=== PATIENT | female | born 1985 | race African-American/Black ===

== ENCOUNTER 2024-05-17 14:50 | Emergency (ER) | payer SELFPAY ==
[2024-05-17] VITALS (13 sets, daily range): BP systolic 144–154; BP diastolic 97–104; PULSE 76–96; RESP 16–34; TEMP 36.3–36.8; O2SAT 64–94; BMI 52.0
--- NOTE | 2024-05-17 15:04 | ED.VIS.DYS ---
HPI History of Present Illness Chief Complaint: Shortness of Breath Informant: patient Onset/Context/Timing Onset: Days Context: gradual Timing: Continuous Quality: Positive for Dyspnea on exertion Worsened by: Exertion Relieved by: Nothing Associated Symptoms cough and white sputum; Negative for rhinorrhea, post nasal drip, ear pain, fever, sore throat, chills, sweats, clear sputum, yellow sputum or green sputum Chest Pain: Positive for None Narrative Narrative: Patient presents with shortness of breath that became worse today. Patient has a history of asthma and is chronically on 4 L nasal cannula. Patient states her breathing is worse with any exertion. Patient states nothing makes it better. Patient states she has a cough with occasional white sputum. Patient denies any fevers or chills. Patient denies any chest pain. Patient denies any sore throat or rhinorrhea. Patient states she has occasional back pain. Patient denies any recent travel or recent surgery. [facility] Medical History Asthma Home Medications ?Medication ?Instructions ?Recorded ?Last Taken ?Type hydrochlorothiazide 25 mg tablet 25 mg PO DAILY #30 tabs 05/17/24 Unknown Rx Allergy/AdvReac Type Severity Reaction Status Date / Time No Known Allergies Allergy Verified 05/17/24 14:52 Social History Smoking Status: Current every day smoker tobacco type: cigarettes ROS ROS ED Constitutional Constitutional ED: Denies chills or fever(s) Eyes Eyes: Denies blurry vision or change in vision ENT ENT ED: Denies rhinorrhea or sore throat Cardiovascular Cardiovascular: Denies chest pain or palpitations Respiratory/Chest Respiratory/Chest: Reports cough and dyspnea Gastrointestinal Gastrointestinal: Denies nausea or vomiting Genitourinary Genitourinary ED: Denies dysuria or hematuria Musculoskeletal Musculoskeletal: Reports back pain; Denies neck pain Integumentary Denies abscess or rash Neurologic Neurologic: Denies headache(s) or weakness Allergic/Immunologic Allergic/Immunologic ED: Denies mouth swelling or urticaria EXAM Physical Exam Const Vital Signs: 05/17/24 14:52 05/17/24 14:54 05/17/24 14:57 Temperature 98.2 F Temperature Source Oral Pulse Rate 94 Respiratory Rate 16 Respiratory Effort Normal Non-Labored Respiratory Depth Normal Respiratory Pattern Normal Blood Pressure 152/104 H Blood Pressure Mean 120 Pulse Ox 64 93 Oxygen Delivery Method Room Air Nasal Cannula Oxygen Flow Rate (L/min) 4 05/17/24 15:20 05/17/24 15:30 05/17/24 15:45 Temperature Temperature Source Pulse Rate 95 96 92 Respiratory Rate 34 H 28 H 23 H Respiratory Effort Respiratory Depth Respiratory Pattern Blood Pressure Blood Pressure Mean Pulse Ox 94 94 92 Oxygen Delivery Method Oxygen Flow Rate (L/min) 05/17/24 15:48 05/17/24 16:00 05/17/24 16:15 Temperature Temperature Source Pulse Rate 83 83 76 Respiratory Rate 16 24 H 18 Respiratory Effort Respiratory Depth Respiratory Pattern Blood Pressure Blood Pressure Mean Pulse Ox 94 94 Oxygen Delivery Method Oxygen Flow Rate (L/min) 05/17/24 16:30 05/17/24 16:33 05/17/24 16:45 Temperature 98.3 F Temperature Source Oral Pulse Rate 80 85 Respiratory Rate 24 H 16 25 H Respiratory Effort Respiratory Depth Respiratory Pattern Blood Pressure 144/99 H 144/99 H Blood Pressure Mean 113 114 Pulse Ox 92 90 92 Oxygen Delivery Method Nasal Cannula Oxygen Flow Rate (L/min) 3 05/17/24 16:45 05/17/24 17:00 Temperature Temperature Source Pulse Rate 77 Respiratory Rate 18 Respiratory Effort Respiratory Depth Respiratory Pattern Blood Pressure 154/97 H 149/99 H Blood Pressure Mean 113 113 Pulse Ox 94 Oxygen Delivery Method Oxygen Flow Rate (L/min) Positive well nourished and well developed Constitutional Narrative: BMI is 52.0 General Appearance ED: well developed and NAD HEENT Reports moist mucous membranes atraumatic Neck supple, no meningeal signs and no JVD Resp normal respiratory effort Auscultation: wheezes expiratory wheezes and throughout Cardio regular rate and regular rhythm GI non-tender and non-distended Palpation: soft Neuro oriented x3, CN's II-XII intact bilaterally and no sensory deficits noted Kaitlyn Coma Scale: document GCS findings Spontaneous Obeys Commands Oriented 15 Sensorium / Orientation: alert Speech: speech normal Motor Exam: strength 5/5 throughout Psych mental status grossly normal MDM MDM MDM Narrative Medical decision making narrative: Differential diagnosis includes asthma exacerbation, pneumonia, viral illness, congestive heart failure, cardiac dysrhythmia, cardiac ischemia, electrolyte abnormality, and anxiety. Chest x-ray will be obtained to assess for pneumonia and bronchitis. COVID-19, influenza, and RSV PCR will be obtained to assess for viral illness. EKG will be obtained to assess for cardiac dysrhythmia and cardiac ischemia. CBC will be obtained to assess for leukocytosis and anemia. Basic metabolic profile will be obtained to assess for electrolyte abnormality and renal function. BNP will be obtained to assess for congestive heart failure. Lab Data Attestation: I reviewed the patient's lab results. Lab results narrative: CBC was reviewed. Hemoglobin slightly elevated at 15.2 and hematocrit was 48.9. The remainder is within normal limits. Basic metabolic profile was reviewed and was essentially within normal limits. BNP was reviewed and was slightly elevated at 707. Labs: Laboratory Results - last 24 hr 05/17/24 14:55 WBC 6.4 RBC 5.53 H Hgb 15.2 H Hct 48.9 H MCV 88.4 MCH 27.5 MCHC 31.1 L RDW Std Deviation 49.9 H RDW Coeff of Dieudonne 15.2 H Plt Count 215 MPV 11.0 Immature Gran % (Auto) 0.300 Neut % (Auto) 62.2 Lymph % (Auto) 23.4 [place] % (Auto) 9.9 Eos % (Auto) 3.1 Baso % (Auto) 1.1 H Absolute Neuts (auto) 4.0 Absolute Lymphs (auto) 1.49 Nucleated RBC % 0 Sodium 141 Potassium 4.2 Chloride Direct 100 Carbon Dioxide 30.5 H Anion Gap 10 BUN 7 Creatinine 0.61 L Estim Creat Clear Calc 162.70 Est GFR (MDRD) Non-Af 118 BUN/Creatinine Ratio 12.1 Glucose 108 H Calcium 9.5 NT pro BNP II 707 H Radiography Chest X-Ray - ED: 2 View, Read by ED Physician, Read by Radiologist, Cardiomegaly and CHF (Pulmonary vascular congestion) Diagnostic Testing: Clinical Impression(s) from Imaging Studies Chest X-Ray 05/17/24 15:35 IMPRESSION: Moderate cardiomegaly with pulmonary vascular congestion. Reading Location: [facility] and lateral chest x-ray was obtained. There are 2 views. On my independent interpretation, lung lamb show pulmonary vascular congestion. There is moderate cardiomegaly. Bony thorax is normal. There is no acute process noted. Radiologist also interpreted the x-ray and agrees. EKG Initial EKG: Attestation: I personally reviewed and interpreted this EKG as follows: Interpretation: Sinus Rhythm (79 with occasional PVC) Comments: EKG was obtained. On my independent interpretation, it showed a normal sinus rhythm with occasional PVC with a rate of 79. FL interval, QRS interval, and QTc intervals were all normal. There is borderline right axis deviation at 122. There are no acute ST or T wave changes. There is right ventricular hypertrophy and right atrial enlargement. Prior EKG tracings: not available for review Prior: No Prior Treatment and Re-Evaluation :: Patient was given a DuoNeb aerosol here. Patient was feeling better on reevaluation. Patient was given a dose of Lasix here. Patient was advised of her findings. Since the patient is on home oxygen and is not requiring any increase in her oxygen demand, I feel the patient can be discharged home safely. Patient was given a prescription for hydrochlorothiazide. Patient was given a referral for primary care physician for follow-up care in 3 to 5 days. Patient instructed to return if worse in any way. Patient understood and was agreeable with the plan. All questions were answered. Discharge Plan Triage Chief Complaint: Shortness of Breath ED Provider: Pavel Lantigua Dx/Rx/DC Orders Clinical Impression: Dyspnea, Pulmonary vascular congestion Instructions: ED CHF Left Side Prescriptions: New hydrochlorothiazide 25 mg tablet 25 mg PO DAILY Qty: 30 0RF Primary Care Provider: Care Physician,No Primary Referrals: Munir Mondragon MD [Med Staff - [employer]] - 3-5 Days NOT,DEFINED [Non-Staff] - Print Language: Kazakh Disposition Disposition: Home, Self Care
--- NOTE | 2024-05-17 15:35 | RAD_ITS ---
PROCEDURE: CHEST PA AND LATERAL REASON FOR EXAM: Dyspnea TECHNIQUE: Frontal and lateral views of the chest. COMPARISON: None. FINDINGS: Heart size is moderately enlarged. The mediastinal contour is unremarkable. Pulmonary vasculature is congested. The bones are unremarkable. RAD/Chest PA and Lateral IMPRESSION: Moderate cardiomegaly with pulmonary vascular congestion. Reading Location: [facility]
[2024-05-17] MEDS: Ipratropium/Albuterol Sulfate 3 ML AMPUL.NEB INHALATION (15:48)
--- NOTE | 2024-05-17 16:08 | EKG12_ITS ---
Test Reason : sob Blood Pressure : */* mmHG Vent. Rate : 79 BPM Atrial Rate : 79 BPM P-R Int : 182 ms QRS Dur : 104 ms QT Int : 400 ms P-R-T Axes : 59 122 28 degrees QTcB Int : 458 ms Sinus rhythm with occasional Premature ventricular complexes Right atrial enlargement Right axis deviation Right ventricular hypertrophy Abnormal ECG Confirmed by Zach Rivera ([id number]), graphic editor HAYDEE FARIA ([id number]) on 05/19/2024 7:04:35 AM Referred By: Confirmed By: Zach Rivera
[2024-05-17 16:31] LABS: Absolute Lymphocyte Count 1.49 X10^3/uL (0.83-4.51); Basophil# 0.07 X10^3/uL; Basophil% 1.1 % (0-1); Eosinophils% 3.1 % (0-5); Hematocrit 48.9 % (37-47); Hemoglobin 15.2 g/dL (12.0-15.0); Lymphocyte # 1.49 X10^3/ul (0.83-4.51); Lymphocyte % 23.4 % (19-41); Mean Corp Hgb Conc 31.1 g/dL (32-36); Mean Corpuscular Hgb 27.5 pg (27.0-32.0); Mean Corpuscular Volume 88.4 fL (81-99); Monocyte# 0.63 X10^3/uL; Monocyte% 9.9 % (0-10); NRBC Flagged by Analyzer 0 % (0-5); Neutrophil # 3.95 X10^3/uL (2.7-7.7); Neutrophil % 62.2 % (47-70); Platelet Count 215 K/mm3 (150-450); RBC Distribution Width CV 15.2 % (11.6-14.6); RBC Distribution Width SD 49.9 fl (35.1-43.9); Red Blood Count 5.53 M/mm3 (4.2-5.4); White Blood Count 6.4 K/mm3 (4.4-11.0)
[2024-05-17 17:01] LABS: Anion Gap 10 (5-15); BUN 7 mg/dL (4-19); BUN/Creat Ratio 12.1 RATIO (10-20); Calcium 9.5 mg/dL (7.6-11.0); Carbon Dioxide 30.5 mmol/L (22.0-29.0); Chloride 100 mmol/L (96-108); Creatinine, Serum 0.61 mg/dL (0.70-1.20); EST Glomerular Filtration Rate 118 (>60); Glucose 108 mg/dL (70-99); Potassium 4.2 mmol/L (3.3-5.1); Pro- Brain NATRIURETIC PEPTIDE 707 pg/mL (<=450); Sodium Level 141 mmol/L (133-145)
[2024-05-17] MEDS: Furosemide 40 MG/4 ML Vial IV (17:25)
--- NOTE | 2024-05-17 18:12 | ED.RN ---
Pt was d/c without oxygen, patient has oxygen at home and is refusing to go get it. Pt states It is a [address], I will be okay going from here to home without it. This RN educated the importance of keeping the oxygen on at all times.
== END 2024-05-17 18:13 | disposition home or self-care (01) ==
PROVIDERS: Emergency Provider Emergency Medicine; Visit Provider Emergency Medicine
DX: R06.00 Dyspnea, unspecified (principal); R09.89 Other specified symptoms and signs involving the circulatory and respiratory systems; J45.909 Unspecified asthma, uncomplicated; F17.210 Nicotine dependence, cigarettes, uncomplicated
CPT/HCPCS: 71046; 80048; 83880; 85025; 87631; 93005; 94640; 96374; 99285; A4216; J1940

== ENCOUNTER 2024-06-10 12:27 | Emergency (ER) | payer MEDICAID, SELFPAY ==
[2024-06-10 12:27] VITALS: BP 125/91; PULSE 101; RESP 16; TEMP 36.7; O2SAT 90; BMI 51.5
--- NOTE | 2024-06-10 12:59 | EX.ED.DYSGE1 ---
HPI <Dr. Christiano Berry DO - Last Filed: 06/10/24 15:35> History of Present Illness Chief Complaint: Abd Pain Informant: patient and family Narrative Narrative: 39-year-old female presenting to the emergency room with gallbladder pain and nausea. Patient states that she has a gallbladder problem and does not know what it is. She states that she moved from [place] in March because she has chronic lung and gallbladder issues and the doctors there were not telling her what was going on or trying to fix it. Since arriving in [place] she has not establish care with anybody because she is waiting on medical. By this she means she is waiting to get insurance through the state. She states her pain began around 8:00 this morning and is epigastric and right upper quadrant in nature. She states she has not had a bowel movement for 1 to 2 days. She last had anything to eat last evening. She states that she has home oxygen but she is not wearing that today. She is a smoker. She notes no prior abdominal surgeries. [facility] <Dr. Christiano Berry DO - Last Filed: 06/10/24 15:35> [facility] Medical History Asthma Home Medications ?Medication ?Instructions ?Recorded ?Last Taken ?Type hydrochlorothiazide 25 mg tablet 25 mg PO DAILY #30 tabs 05/17/24 Unknown Rx oxycodone-acetaminophen 5 mg-325 1 tab PO Q6H PRN PRN Pain 3 days 06/10/24 Unknown Rx mg tablet #12 TABLETS Allergy/AdvReac Type Severity Reaction Status Date / Time No Known Allergies Allergy Verified 05/17/24 14:52 Family History no significant family his Social History Smoking Status: Current every day smoker tobacco type: cigarettes ROS <Dr. Christiano Berry DO - Last Filed: 06/10/24 15:35> ROS ED Constitutional Constitutional ED: Denies chills, fever(s) or weight loss Eyes Eyes: Denies change in vision or diplopia ENT ENT ED: Denies ear pain, rhinorrhea or sore throat Cardiovascular Cardiovascular: Denies chest pain, orthopnea, palpitations or racing heartbeat Respiratory/Chest Respiratory/Chest: Denies cough, dyspnea or orthopnea Gastrointestinal Gastrointestinal: Reports abdominal pain and nausea; Denies diarrhea or vomiting Genitourinary Genitourinary ED: Denies dysuria, hematuria or urinary frequency Musculoskeletal Musculoskeletal: Denies arthralgias or myalgias Integumentary Denies abscess or rash Neurologic Neurologic: Denies headache(s) or weakness Psychiatric Psychiatric: Denies anxiety, depression, suicidal ideation or suicidal thoughts Endocrine Endocrinology: Denies polydipsia, polyphagia or polyuria Allergic/Immunologic Allergic/Immunologic ED: Denies mouth swelling, tongue swelling or urticaria EXAM <Dr. Christiano Berry, DO - Last Filed: 06/10/24 15:35> Physical Exam Const Vital Signs: 06/10/24 12:27 06/10/24 14:27 06/10/24 15:26 Temperature 98.1 F Temperature Source Temporal Pulse Rate 101 H Respiratory Rate 16 Blood Pressure 125/91 H 114/64 Blood Pressure Mean 102 80 Pulse Ox 90 60 Oxygen Delivery Method Room Air Room Air Oxygen Flow Rate (L/min) 06/10/24 15:26 06/10/24 15:38 06/10/24 16:54 Temperature Temperature Source Pulse Rate Respiratory Rate Blood Pressure 112/76 Blood Pressure Mean 88 Pulse Ox 94 95 Oxygen Delivery Method Nasal Cannula Nasal Cannula Oxygen Flow Rate (L/min) 6 5 Positive well nourished and well developed General Appearance ED: well developed HEENT Reports normocephalic, head/scalp atraumatic and moist mucous membranes Eyes PERRL and EOMs intact bilaterally Neck no lymphadenopathy, supple and no JVD Resp normal respiratory effort and clear to auscultation bilaterally Cardio regular rate, regular rhythm and no murmurs GI GI Narrative: Body habitus precludes full deep palpation of abdomen Inspection: Negative for abdominal distention Auscultation: normoactive bowel sounds Palpation: soft and tender epigastric; Negative for guarding or rebound tenderness present Back/Spine no CVA tenderness and normal ROM Extremity normal to inspection General Extremety ED: Negative for edema General Extremity: Negative for edema Neuro oriented x3 and CN's II-XII intact bilaterally Sensorium / Orientation: alert Motor Exam: strength 5/5 throughout Psych mental status grossly normal Mood & Affect: Negative for depressed or tearful Skin no rashes or lesions noted and no wounds <Dr. Waylon Wyatt, DO - Last Filed: 06/10/24 17:37> Physical Exam Const Vital Signs: 06/10/24 12:27 06/10/24 14:27 06/10/24 15:26 Temperature 98.1 F Temperature Source Temporal Pulse Rate 101 H Respiratory Rate 16 Blood Pressure 125/91 H 114/64 Blood Pressure Mean 102 80 Pulse Ox 90 60 Oxygen Delivery Method Room Air Room Air Oxygen Flow Rate (L/min) 06/10/24 15:26 06/10/24 15:38 06/10/24 16:54 Temperature Temperature Source Pulse Rate Respiratory Rate Blood Pressure 112/76 Blood Pressure Mean 88 Pulse Ox 94 95 Oxygen Delivery Method Nasal Cannula Nasal Cannula Oxygen Flow Rate (L/min) 6 5 MDM <Dr. Christiano Berry, DO - Last Filed: 06/10/24 15:35> MDM MDM Narrative Medical decision making narrative: Differential diagnosis includes but not limited to pancreatitis biliary colic choledocholithiasis colitis Patient's white count is 7.3 platelet count of 280 hemoglobin 14.9. LFTs are within normal limits glucose noted to be 120. Albumin is low at 1.9 lipase 41. Urinalysis with no overt infection does show contamination. test is negative. CT of the abdomen pelvis was obtained. Please see radiologist read for full details. There is evidence of cholelithiasis. There is noted to be fatty liver. Patient received pain and nausea medication. While sleeping the patient did desaturate and was placed on her home oxygen. Given body habitus and her need for home oxygen I do suspect a degree of sleep apnea and possibly pickwickian syndrome. History & Record Review Discussion w/independent historian: Patient and Family Lab Data Attestation: I reviewed the patient's lab results. Labs: Laboratory Results - last 24 hr 06/10/24 06/10/24 06/10/24 12:45 13:35 14:00 WBC 7.3 RBC 5.41 H Hgb 14.9 Hct 47.9 H MCV 88.5 MCH 27.5 MCHC 31.1 L RDW Std Deviation 48.4 H RDW Coeff of Dieudonne 15.1 H Plt Count 280 MPV 10.3 Immature Gran % (Auto) 0.300 Neut % (Auto) 70.6 H Lymph % (Auto) 20.2 [place] % (Auto) 6.5 Eos % (Auto) 1.6 Baso % (Auto) 0.8 Absolute Neuts (auto) 5.1 Absolute Lymphs (auto) 1.47 Nucleated RBC % 0 Sodium 138 Potassium 4.5 Chloride 98 Carbon Dioxide 30.3 Anion Gap 10 BUN 12 Creatinine 0.68 L Estim Creat Clear Calc 143.73 Est GFR (MDRD) Non-Af 114 BUN/Creatinine Ratio 18.1 Glucose 120 H Calcium 6.7 L Ionized Calcium Total Bilirubin 0.38 Direct Bilirubin 0.13 AST 19 ALT 13 Alkaline Phosphatase 92 Total Protein 8.4 Albumin 1.9 L Globulin 6.4 H Lipase 41 Serum , Qual NEGATIVE Urine Color Yellow Urine Clarity Cloudy Urine pH 6.0 Ur Specific [place] 1.015 Urine Protein 100 H Urine Glucose (UA) Normal Urine Ketones Negative Urine Occult Blood Negative Urine Nitrite Negative Urine Bilirubin 1 H Urine Urobilinogen 1 H Ur Leukocyte Esterase 25 H Urine RBC 0 SEEN Urine WBC 0-5 SEEN Ur Squamous Epith Cells 10-25 SEEN Urine Bacteria 0 SEEN Urine Mucus 1+ 06/10/24 14:50 WBC RBC Hgb Hct MCV MCH MCHC RDW Std Deviation RDW Coeff of Dieudonne Plt Count MPV Immature Gran % (Auto) Neut % (Auto) Lymph % (Auto) [place] % (Auto) Eos % (Auto) Baso % (Auto) Absolute Neuts (auto) Absolute Lymphs (auto) Nucleated RBC % Sodium Potassium Chloride Carbon Dioxide Anion Gap BUN Creatinine Estim Creat Clear Calc Est GFR (MDRD) Non-Af BUN/Creatinine Ratio Glucose Calcium Ionized Calcium 1.16 Total Bilirubin Direct Bilirubin AST ALT Alkaline Phosphatase Total Protein Albumin Globulin Lipase Serum , Qual Urine Color Urine Clarity Urine pH Ur Specific [place] Urine Protein Urine Glucose (UA) Urine Ketones Urine Occult Blood Urine Nitrite Urine Bilirubin Urine Urobilinogen Ur Leukocyte Esterase Urine RBC Urine WBC Ur Squamous Epith Cells Urine Bacteria Urine Mucus Radiography Diagnostic Testing: Clinical Impression(s) from Imaging Studies Abdomen/Pelvis CT 06/10/24 14:35 IMPRESSION: 1. Normal appendix. 2. Anterior ventral hernia of the lower mid abdomen. No bowel obstruction. 3. Hepatomegaly with fatty infiltration. 4. Cholelithiasis. 5. No obstructive uropathy. Reading Location: [facility] Gallbladder Ultrasound 06/10/24 15:42 IMPRESSION: 1. Cholelithiasis without evidence of acute cholecystitis. 2. Hepatic steatosis. Reading Location: [id number] <Dr. Waylon Wyatt, DO - Last Filed: 06/10/24 17:37> [facility] Narrative Medical decision making narrative: Differential diagnosis includes but not limited to pancreatitis biliary colic choledocholithiasis colitis Patient's white count is 7.3 platelet count of 280 hemoglobin 14.9. LFTs are within normal limits glucose noted to be 120. Albumin is low at 1.9 lipase 41. Urinalysis with no overt infection does show contamination. test is negative. CT of the abdomen pelvis was obtained. Please see radiologist read for full details. There is evidence of cholelithiasis. There is noted to be fatty liver. Patient received pain and nausea medication. While sleeping the patient did desaturate and was placed on her home oxygen. Given body habitus and her need for home oxygen I do suspect a degree of sleep apnea and possibly pickwickian syndrome. Dr. Wyatt: Patient was signed out to me by day physician. At the time of sign out, labs had all resulted. We are awaiting gallbladder ultrasound. I did personally look over the labs as well as CT abdomen pelvis. Ultrasound of the gallbladder shows cholelithiasis without evidence of acute cholecystitis. Hepatic steatosis. I suspect that patient's episodic abdominal pain is secondary to biliary colic. She has no signs of acute cholecystitis. On reevaluation, patient states her pain is controlled. Patient is stable to discharge home. She is educated to follow-up with general surgery for her cholelithiasis as well as for hepatic steatosis. She confirmed understand the plan. Return precautions explained. Patient discharged home. Impression: 1. Cholelithiasis 2. Hepatic steatosis Lab Data Labs: Laboratory Results - last 24 hr 06/10/24 06/10/24 06/10/24 12:45 13:35 14:00 WBC 7.3 RBC 5.41 H Hgb 14.9 Hct 47.9 H MCV 88.5 MCH 27.5 MCHC 31.1 L RDW Std Deviation 48.4 H RDW Coeff of Dieudonne 15.1 H Plt Count 280 MPV 10.3 Immature Gran % (Auto) 0.300 Neut % (Auto) 70.6 H Lymph % (Auto) 20.2 [place] % (Auto) 6.5 Eos % (Auto) 1.6 Baso % (Auto) 0.8 Absolute Neuts (auto) 5.1 Absolute Lymphs (auto) 1.47 Nucleated RBC % 0 Sodium 138 Potassium 4.5 Chloride 98 Carbon Dioxide 30.3 Anion Gap 10 BUN 12 Creatinine 0.68 L Estim Creat Clear Calc 143.73 Est GFR (MDRD) Non-Af 114 BUN/Creatinine Ratio 18.1 Glucose 120 H Calcium 6.7 L Ionized Calcium Total Bilirubin 0.38 Direct Bilirubin 0.13 AST 19 ALT 13 Alkaline Phosphatase 92 Total Protein 8.4 Albumin 1.9 L Globulin 6.4 H Lipase 41 Serum , Qual NEGATIVE Urine Color Yellow Urine Clarity Cloudy Urine pH 6.0 Ur Specific [place] 1.015 Urine Protein 100 H Urine Glucose (UA) Normal Urine Ketones Negative Urine Occult Blood Negative Urine Nitrite Negative Urine Bilirubin 1 H Urine Urobilinogen 1 H Ur Leukocyte Esterase 25 H Urine RBC 0 SEEN Urine WBC 0-5 SEEN Ur Squamous Epith Cells 10-25 SEEN Urine Bacteria 0 SEEN Urine Mucus 1+ 06/10/24 14:50 WBC RBC Hgb Hct MCV MCH MCHC RDW Std Deviation RDW Coeff of Dieudonne Plt Count MPV Immature Gran % (Auto) Neut % (Auto) Lymph % (Auto) [place] % (Auto) Eos % (Auto) Baso % (Auto) Absolute Neuts (auto) Absolute Lymphs (auto) Nucleated RBC % Sodium Potassium Chloride Carbon Dioxide Anion Gap BUN Creatinine Estim Creat Clear Calc Est GFR (MDRD) Non-Af BUN/Creatinine Ratio Glucose Calcium Ionized Calcium 1.16 Total Bilirubin Direct Bilirubin AST ALT Alkaline Phosphatase Total Protein Albumin Globulin Lipase Serum , Qual Urine Color Urine Clarity Urine pH Ur Specific [place] Urine Protein Urine Glucose (UA) Urine Ketones Urine Occult Blood Urine Nitrite Urine Bilirubin Urine Urobilinogen Ur Leukocyte Esterase Urine RBC Urine WBC Ur Squamous Epith Cells Urine Bacteria Urine Mucus Radiography Diagnostic Testing: Clinical Impression(s) from Imaging Studies Abdomen/Pelvis CT 06/10/24 14:35 IMPRESSION: 1. Normal appendix. 2. Anterior ventral hernia of the lower mid abdomen. No bowel obstruction. 3. Hepatomegaly with fatty infiltration. 4. Cholelithiasis. 5. No obstructive uropathy. Reading Location: [facility] Gallbladder Ultrasound 06/10/24 15:42 IMPRESSION: 1. Cholelithiasis without evidence of acute cholecystitis. 2. Hepatic steatosis. Reading Location: [facility] Discharge Plan Triage Chief Complaint: Abd Pain ED Provider: Christiano Berry Dx/Rx/DC Orders Clinical Impression: Abdominal pain, acute, Cholelithiasis Instructions: Gallstones Dc Prescriptions: New oxycodone-acetaminophen 5-325 mg tablet 1 tab PO Q6H PRN PRN (Reason: Pain) 3 Days Qty: 12 0RF No Action hydrochlorothiazide 25 mg tablet 25 mg PO DAILY Qty: 30 0RF Primary Care Provider: Care Physician,No Primary Referrals: Julien Adams MD [Med Staff - Active Staff] - (for surgery evaluation of gallbladder) Care Physician,No Primary [Primary Care Provider] - Print Language: Swedish
[2024-06-10] MEDS: Morphine 4 MG/ML Syringe IV (13:07)
[2024-06-10] MEDS: Ondansetron 4 MG/2 ML Vial IV (13:07)
[2024-06-10 13:09] LABS: Absolute Lymphocyte Count 1.47 X10^3/uL (0.83-4.51); Absolute Neutrophil Count 5.1 X10^3/uL (2.0-7.7); Basophil# 0.06 X10^3/uL; Basophil% 0.8 % (0-1); Eosinophil# 0.12 X10^3/uL; Eosinophils% 1.6 % (0-5); Hematocrit 47.9 % (37-47); Hemoglobin 14.9 g/dL (12.0-15.0); Lymphocyte # 1.47 X10^3/ul (0.83-4.51); Lymphocyte % 20.2 % (19-41); Mean Corp Hgb Conc 31.1 g/dL (32-36); Mean Corpuscular Hgb 27.5 pg (27.0-32.0); Mean Corpuscular Volume 88.5 fL (81-99); Mean Platelet Vol. 10.3 fl (6.2-12.0); Monocyte# 0.47 X10^3/uL; Monocyte% 6.5 % (0-10); NRBC Flagged by Analyzer 0 % (0-5); Neutrophil # 5.14 X10^3/uL (2.7-7.7); Neutrophil % 70.6 % (47-70); Platelet Count 280 K/mm3 (150-450); RBC Distribution Width CV 15.1 % (11.6-14.6); RBC Distribution Width SD 48.4 fl (35.1-43.9); Red Blood Count 5.41 M/mm3 (4.2-5.4); White Blood Count 7.3 K/mm3 (4.4-11.0)
[2024-06-10 13:50] LABS: Internal QC Validated? YES +Cl - CLEAR BKGD; Pregnancy, Serum, hCG Quali. NEGATIVE Negative
[2024-06-10 14:09] LABS: Bacteria 0 SEEN /hpf (None Seen)
[2024-06-10 14:15] LABS: Color, Urine Yellow (Yellow); Glucose, Dipstick Normal (Normal); Ketone-Dipstick Negative (Negative); Leukocyte Esterase-Dipstick 25 /ul (Negative); Nitrite-Dipstick Negative (Negative); Occult Blood-Urine Negative /ul (Negative); Protein-Dipstick 100 mg/dl (Negative); Specific Gravity, Urine 1.015 (1.002-1.030); Urine Clarity Cloudy (Clear); Urine Urobilinogen 1 mg/dl (Normal)
[2024-06-10 14:25] LABS: Urine Bilirubin Dipstick 1 mg/dL (Negative)
[2024-06-10 14:27] VITALS: BP 114/64
[2024-06-10 14:28] LABS: Red Blood Cells-Urine 0 SEEN /hpf (0-5); Squamous Epithelial Cells - UA 10-25 SEEN /hpf (5-10); White Blood Cells 0-5 SEEN /hpf (0-5)
[2024-06-10 14:29] LABS: Mucous, Urine 1+ /hpf (<or=2+)
--- NOTE | 2024-06-10 14:35 | CT_ITS ---
EXAM: CT Abdomen, Pelvis and Lumbar Spine With Intravenous Contrast CLINICAL INDICATION: ABDOMINAL PAIN TECHNIQUE: Axial computed tomography images of the abdomen, pelvis and lumbar spine with intravenous contrast. This CT exam was performed using one or more of the following dose reduction techniques: automated exposure control, adjustment of the mA and/or kV according to patient size, and/or use of iterative reconstruction technique. COMPARISON: No relevant prior studies available. FINDINGS: LUNG BASES: Unremarkable. No mass. No consolidation. ABDOMEN: LIVER: Hepatomegaly with fatty infiltration. GALLBLADDER AND BILE DUCTS: Cholelithiasis. No ductal dilation. PANCREAS: Unremarkable. No mass. No ductal dilation. SPLEEN: Unremarkable. No splenomegaly. ADRENALS: Unremarkable. No mass. KIDNEYS AND URETERS: Unremarkable. No stones within either kidney. No hydronephrosis. STOMACH AND BOWEL: Anterior ventral hernia of the lower mid abdomen. No bowel obstruction. No mucosal thickening. PELVIS: APPENDIX: Normal appendix. BLADDER: Unremarkable. No mass. REPRODUCTIVE: Unremarkable as visualized. LUMBAR SPINE: VERTEBRAE: Unremarkable. No acute fracture. DISCS/SPINAL CANAL/NEURAL FORAMINA: No acute findings. No significant spinal canal stenosis. ABDOMEN and PELVIS: INTRAPERITONEAL SPACE: Unremarkable. No free air. No significant fluid collection. BONES/JOINTS: No acute fracture. No dislocation. SOFT TISSUES: See above. VASCULATURE: Unremarkable. No abdominal aortic aneurysm. LYMPH NODES: Unremarkable. No enlarged lymph nodes. CT/Abdomen/Pelvis W IV Cont ONLY IMPRESSION: 1. Normal appendix. 2. Anterior ventral hernia of the lower mid abdomen. No bowel obstruction. 3. Hepatomegaly with fatty infiltration. 4. Cholelithiasis. 5. No obstructive uropathy. Reading Location: [facility]
[2024-06-10 14:39] LABS: AST(SGOT) 19 U/L (<=31); Alanine Aminotransfer ALT/SGPT 13 U/L (<=34); Albumin, Serum 1.9 g/dL (3.5-5.0); Alkaline Phosphatase 92 U/L (35-104); Anion Gap 10 (5-15); BUN 12 mg/dL (4-19); BUN/Creat Ratio 18.1 RATIO (10-20); Bilirubin, Direct 0.13 mg/dL (0.00-0.30); Calcium,Total 6.7 mg/dL (7.6-11.0); Carbon Dioxide 30.3 mmol/L (21.0-32.0); Chloride 98 mmol/L (98-108); Creatinine, Serum 0.68 mg/dL (0.70-1.20); EST Glomerular Filtration Rate 114 (>60); Estimated Creatinine Clearance 143.73 ml/min (50-250); Globulin 6.4 g/dL (2.2-4.2); Glucose 120 mg/dL (70-99); Lipase 41 U/L (13-75); Potassium 4.5 mmol/L (3.3-5.1); Protein, Total 8.4 g/dL (5.9-8.4); Sodium Level 138 mmol/L (133-145); Total Bilirubin 0.38 mg/dL (0.00-1.30)
[2024-06-10 15:26] VITALS: O2SAT 60; O2SAT 94
[2024-06-10 15:38] VITALS: O2SAT 95
--- NOTE | 2024-06-10 15:42 | US_ITS ---
PROCEDURE: GALLBLADDER 06/10/2024 REASON FOR EXAM: 39-year-old female, PAIN AND CHOLELITHIASIS COMPARISON: Same day CT abdomen pelvis. FINDINGS: Liver: Diffusely echogenic suggesting fatty infiltration. Normal in size measuring 17.4 cm. The bile ducts are within normal limits. The main portal vein is patent with normal direction of flow. Gallbladder: Multiple echogenic gallstones are identified. The gallbladder measures 7.8 cm in length, and the wall measures 5 mm in thickness. No pericholecystic fluid. Negative Fonseca sign reported by the computer technologist. Common bile duct: Normal measuring 5 mm. Pancreas: Visualized portions are unremarkable. The tail is obscured by bowel gas. Other: Visualized portions of the right kidney are unremarkable. No right upper quadrant ascites. US/Gallbladder IMPRESSION: 1. Cholelithiasis without evidence of acute cholecystitis. 2. Hepatic steatosis. Reading Location: [id number]
[2024-06-10 15:48] LABS: Ionized Calcium 1.16 mmol/L (1.09-1.30)
[2024-06-10 15:49] LABS: Ionized Calcium Order TUBE ORDER
[2024-06-10 16:54] VITALS: BP 112/76
[2024-06-10 17:36] VITALS: BP 98/63; PULSE 78; RESP 16; TEMP 36.7; O2SAT 94
== END 2024-06-10 17:42 | disposition home or self-care (01) ==
PROVIDERS: Emergency Provider Emergency Medicine; Visit Provider Emergency Medicine
DX: R10.9 Unspecified abdominal pain (principal); K80.20 Calculus of gallbladder without cholecystitis without obstruction; F17.210 Nicotine dependence, cigarettes, uncomplicated; K76.0 Fatty (change of) liver, not elsewhere classified; J45.909 Unspecified asthma, uncomplicated
CPT/HCPCS: 74177; 76705; 80048; 80076; 81001; 82330; 83690; 84703; 85025; 96374; 96375; 99282; Q9967; A4216; J2405

== ENCOUNTER 2024-10-14 13:35 | Emergency (ER) | payer MEDICAID, SELFPAY ==
[2024-10-14 13:36] VITALS: BP 139/110; PULSE 117; RESP 24; TEMP 37.4; O2SAT 88; BMI 48.2
--- NOTE | 2024-10-14 14:22 | CT_ITS ---
PROCEDURE: ABDOMEN/PELVIS W IV CONT ONLY 10/14/2024 REASON FOR EXAM: LLQ ABD PAIN, FEVER TECHNIQUE: ABDOMEN/PELVIS W IV CONT ONLY Coronal and Sagittal reconstruction series were provided. CONTRAST: Isovue 370 VOLUME: 100 mL One or more dose reduction techniques were used (e.g., Automated exposure control, adjustment of the mA and/or kV according to patient size, use of iterative reconstruction technique. RADIATION DOSE SUMMARY: DLP: 1206.41 mGycm COMPARISON: Abdominal CT 06/10/2024. FINDINGS: Lung bases: No basilar consolidation or pleural effusion. Patchy ground-glass mosaic attenuation reflective of air trapping, which can be seen with small airways disease. Liver: No significant abnormality. Gallbladder: Cholelithiasis. No findings of acute cholecystitis. No biliary ductal dilatation. Spleen: Normal in size and morphology. Pancreas: Within normal limits. Adrenals: Unremarkable. Kidneys: Normal in size with symmetric enhancement. No urolithiasis or hydroureteronephrosis. Prominent left periureteric and perinephric fat stranding with subtle patchy areas of cortical hypoattenuation involving the left kidney, consistent with ascending UTI with ureteritis and pyelonephritis. No definite findings of pyelonephritis are appreciated involving the right kidney. Bladder: Underdistended but there is circumferential wall thickening and pericystic inflammatory fat stranding compatible with cystitis. No bladder calculus is seen. Reproductive Organs: Normal appearance of the uterus and adnexae. Bowel: Unremarkable. No evidence of bowel obstruction or active inflammatory process. The appendix is not definitively identified but there are no pericecal inflammatory changes. Lymph nodes: No suspicious lymph node enlargement. Vasculature: The abdominal aorta and IVC are normal. Peritoneum / Retroperitoneum: No ascites or free air. Bones: No significant abnormality. CT/Abdomen/Pelvis W IV Cont ONLY IMPRESSION: 1. Cystitis with left ureteritis and pyelonephritis. 2. Cholelithiasis, without evidence for acute cholecystitis. Reading Location: [facility]
--- NOTE | 2024-10-14 14:23 | EDS_ITS ---
HPI HPI - GI History of Present Illness Chief Complaint: Abd Pain Informant: patient Narrative Narrative: Patient is a 39-year-old female with history of chronic respiratory disease (states that she has asthma/COPD where she wears of oxygen at baseline) as well as gallstones/biliary colic presenting with left lower quadrant abdominal pain. She describes the pain as sharp. It is constant. Does not radiate. She states it started last night. She also notes that she has not had a bowel movement in the past 2 days and has not been passing gas today. She has some associated nausea but no vomiting. Denies any history of abdominal surgeries. Never to colonoscopy. Not aware of any history of diverticulitis. She also reports that she had subjective fever last night feeling clammy with hot and cold chills. Do not take any for pain today. Notes that she has a chronic smoker's cough and denies any change in any of her cardiopulmonary symptoms. She states that she recently moved here from [facility] and has appointment see a new primary care doctor in November. 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 She has been put on a water pill in the past but ran out. She does not take any medication on a daily basis. She does wear 2 L of oxygen at baseline. She does not have any portable oxygen. Denies any leg swelling. States she has chronic bladder issues but denies any change in that. States she is not had a menstrual cycle in years but does not know why. [facility] Medical History Asthma Home Medications ?Medication ?Instructions ?Recorded ?Last Taken ?Type ibuprofen 600 mg tablet 600 mg PO Q6H PRN PRN fever or 10/14/24 Unknown Rx pain #20 TABLETS ondansetron 4 mg disintegrating 4 mg PO Q8H PRN PRN Na usea #10 tabs 10/14/24 Unknown Rx tablet sulfamethoxazole 800 1 tab PO BID #28 tabs Unknown Rx mg-trimethoprim 160 mg tablet (Bactrim DS) Allergy/AdvReac Type Severity Reaction Status Date / Time No Known Allergies Allergy Verified 05/17/24 14:52 Social History Smoking Status: Current every day smoker tobacco type: cigarettes ROS ROS ED Constitutional Constitutional ED: Reports chills, fever(s), subjective and sweats Cardiovascular Cardiovascular: Denies chest pain or palpitations Respiratory/Chest Respiratory/Chest: Reports cough and other Details: chronic cough, no acute change ; Denies dyspnea or sputum Gastrointestinal Gastrointestinal: Reports abdominal pain, constipation and nausea; Denies vomiting Genitourinary Genitourinary ED: Denies hematuria Musculoskeletal Musculoskeletal: Denies arthralgias or myalgias Neurologic Neurologic: Denies weakness Hematologic/Lymphatic Hematologic/Lymphatic: Denies easy bleeding or easy bruising EXAM Physical Exam Const Vital Signs: 10/14/24 13:36 10/14/24 13:36 10/14/24 14:42 Temperature 99.4 F H Temperature Source Oral Pulse Rate 117 H 117 H Respiratory Rate 24 H 16 Blood Pressure 139/110 H Blood Pressure Mean 119 Pulse Ox 88 Oxygen Delivery Method Room Air Nasal Cannula Oxygen Flow Rate (L/min) 2 10/14/24 15:35 10/14/24 17:00 10/14/24 18:56 Temperature 98.1 F Temperature Source Oral Pulse Rate 82 81 Respiratory Rate 18 Blood Pressure 128/90 H 125/90 H 131/89 H Blood Pressure Mean 102 101 103 Pulse Ox 97 95 99 Oxygen Delivery Method Nasal Cannula Oxygen Flow Rate (L/min) 2 10/14/24 18:57 Temperature 98.1 F Temperature Source Pulse Rate 81 Respiratory Rate 18 Blood Pressure 131/89 H Blood Pressure Mean 103 Pulse Ox 99 Oxygen Delivery Method Oxygen Flow Rate (L/min) Positive well nourished and well developed General Appearance ED: well developed and NAD HEENT Reports moist mucous membranes Neck supple and no JVD Resp normal respiratory effort Auscultation: wheezes and diminished lung sounds bilateral lower Cardio regular rhythm Rate: tachycardic GI non-distended Auscultation: normoactive bowel sounds Palpation: soft and tender LLQ; Negative for guarding or rigid Back/Spine no CVA tenderness Extremity full ROM General Extremety ED: Negative for edema General Extremity: Negative for edema Neuro Sensorium / Orientation: alert, oriented to person, oriented to place and oriented to time Motor Exam: Negative for general weakness Psych mental status grossly normal and thought process normal Skin no wounds MDM MDM MDM Narrative Medical decision making narrative: Patient evaluated for left lower quadrant abdominal pain. She reports objective fevers and chills. Differential includes diverticulitis, colitis, volvulus, urinary tract infection, pyelonephritis, renal colic. Upon arrival patient is tachycardic, has a low-grade temperature of 99.4 and hypoxic however she is not wearing any O2 which she normally would. She has diminished breath sounds with wheezing and a coarse cough but she states all of this is chronic for her and she is not concerned about that or here to have that evaluated. On 2 L of oxygen patient's oxygenation improved. Did speak with social work about seeing about arranging for portable oxygen for patient and further outpatient resources. Workup including CBC, CMP, urinalysis, urine and CT abdomen pelvis is obtained. Patient given IV Toradol for pain control emergency room. Patient is a leukocytosis of 15.2. Hemoglobin normal. BMP normal. Patient has a mild elevation of alkaline phosphatase at 118 however AST and ALT are normal. Her total bilirubin is elevated at 2.81. Kidney function is normal. These elevations are above her baseline. Urinalysis is concerning with infection with 150 leukocyte esterase 10-25 white blood cells but no bacteria. Urine culture is sent. CT of the abdomen and pelvis shows cystitis with left urethritis and pyelonephritis. In addition she has cholelithiasis without evidence of acute cholecystitis. Right upper quadrant ultrasound is obtained given she does have an elevation of her bilirubin and alkaline phosphatase (mildly). She has multiple small stones and sludge but no definitive evidence for acute cholecystitis. Her common bile duct is 0.3 cm which is less consistent with choledocholithiasis. Patient is offered admission given gallstones with elevation of her bilirubin as well as finding cyst with pyelonephritis in addition she presents with sepsis criteria. Her lactate however is normal and she is not ophiasis with endorgan damage she does not have severe sepsis or septic shock. Patient ultimately would like to be treated outpatient. Given that she is tolerating p.o. in the ER is reasonable for her to try outpatient treatment first. She was started on Bactrim to cover for pyelonephritis. Is also given a prescription for Zofran. Social work to evaluate the patient to attempt further management of her home oxygen and for ambulatory/portable oxygen. They will try to get her into the [facility] clinic sooner For closer outpatient follow- up. Patient does assure me that if she worsens she will return to the emergency room. Patient is given return precautions including fever, not tolerating her a ntibiotics or worsening symptoms as well as jaundice discoloration. Discharged home in stable condition. Given first dose of antibiotics in the emergency room Lab Data Attestation: I reviewed the patient's lab results. Labs: Laboratory Results - last 24 hr 10/14/24 10/14/24 10/14/24 13:54 14:30 14:33 WBC 15.2 H RBC 5.46 H Hgb 15.0 Hct 47.4 H MCV 86.8 MCH 27.5 MCHC 31.6 L RDW Std Deviation 49.0 H RDW Coeff of Dieudonne 15.5 H Plt Count 171 MPV 11.8 Immature Gran % (Auto) 0.700 Neut % (Auto) 82.0 H Lymph % (Auto) 6.6 L [place] % (Auto) 10.0 Eos % (Auto) 0.2 Baso % (Auto) 0.5 Absolute Neuts (auto) 12.5 H Absolute Lymphs (auto) 1.00 Nucleated RBC % 0 Differential Comment SCANNED Platelet Estimate ADEQUATE Sodium 137 Potassium 3.8 Chloride 99 Carbon Dioxide 23.5 Anion Gap 15 BUN 7 Creatinine 0.76 Estim Creat Clear Calc 123.43 Est GFR (MDRD) Non-Af 103 BUN/Creatinine Ratio 9.3 L Glucose 179 H Lactic Acid 1.1 Calcium 8.9 Total Bilirubin 2.81 H AST 26 ALT 22 Alkaline Phosphatase 118 H Total Protein 7.6 Albumin 3.1 L Globulin 4.5 H Albumin/Globulin Ratio 0.7 L Urine Color Yellow Urine Clarity Sl. Cloudy Urine pH 6.0 Ur Specific [place] 1.010 Urine Protein 100 H Urine Glucose (UA) Normal Urine Ketones 5 H Urine Occult Blood 150 H Urine Nitrite Negative Urine Bilirubin 3 H Urine Urobilinogen 8 H Ur Leukocyte Esterase 500 H Urine RBC 0-5 SEEN Urine WBC 10-25 SEEN Ur Squamous Epith Cells 0-5 SEEN Urine Bacteria 0 SEEN Urine Mucus 0 SEEN Urine Test Negative Radiography Diagnostic Testing: Clinical Impression(s) from Imaging Studies Abdomen/Pelvis CT 10/14/24 14:22 IMPRESSION: 1. Cystitis with left ureteritis and pyelonephritis. 2. Cholelithiasis, without evidence for acute cholecystitis. Reading Location: [id number] Gallbladder Ultrasound 10/14/24 16:19 IMPRESSION: Cholelithiasis. Gallbladder is contracted around multiple small stones and sludge. No definitive evidence for acute cholecystitis. If there is persistent clinical concern, suggest HIDA scan. Reading Location: [id number] Management Discussion w/another healthcare provider: farmworker general/Case management Discharge Plan Triage Chief Complaint: Abd Pain ED Provider: Vika Dugan Dx/Rx/DC Orders Clinical Impression: Pyelonephritis, Gallstones, Leukocytosis Instructions: ED Gallstones with Biliary Colic, ED Pyelonephritis, Female (Adult) Prescriptions: New sulfamethoxazole-trimethoprim [Bactrim DS] 800-160 mg tablet 1 tab PO BID Qty: 28 0RF ibuprofen 600 mg tablet 600 mg PO Q6H PRN PRN (Reason: fever or pain) Qty: 20 0RF ondansetron 4 mg tablet,disintegrating 4 mg PO Q8H PRN PRN (Reason: Nausea) Qty: 10 0RF Primary Care Provider: Care Physician,No Primary Referrals: Kaushal Can DO [Med Staff - Active Staff] - Zach Saini MD [Med Staff - Active Staff] - [facility] [Non-Staff] - Care Physician,No Primary [Primary Care Provider] - Activity Restrictions/Additional Instructions: You have evidence of gallstones. If you have worsening pain in your right upper quadrant, worsening vomiting or any sort of yellow discoloration to your eyes please meetly return to the emergency room. In addition you do have findings consistent with a kidney infection to your left kidney as well as your bladder. You have been put on antibiotics for this. If you are not feeling better after 48 hours or continue to have fevers or severe pain please return to the emergency room. We did discuss admission today but this time would like to try outpatient treatment. It is important that you finish your entire course of antibiotics. You may give a referral for a primary care doctor through [facility] try to get you in sooner ([facility]) as well as for a lung doctor and general surgeon (to follow-up with for your gallstones). Please call his places tomorrow to arrange for close outpatient follow-up Print Language: Kazakh Disposition Disposition: Home, Self Care
[2024-10-14 14:42] VITALS: PULSE 117; RESP 16
[2024-10-14 14:43] LABS: Hematocrit 47.4 % (37-47); Hemoglobin 15.0 g/dL (12.0-15.0); Immature Granulocytes Count 0.110 X10^3/uL (0.0-0.0); Mean Corp Hgb Conc 31.6 g/dL (32-36); Mean Corpuscular Volume 86.8 fL (81-99); Mean Platelet Vol. 11.8 fl (6.2-12.0); NRBC Flagged by Analyzer 0 % (0-5); POSITIVE DIFFERENTIAL YES; Platelet Count 171 K/mm3 (150-450); RBC Distribution Width CV 15.5 % (11.6-14.6); RBC Distribution Width SD 49.0 fl (35.1-43.9); Red Blood Count 5.46 M/mm3 (4.2-5.4); White Blood Count 15.2 K/mm3 (4.4-11.0)
[2024-10-14 14:46] LABS: Mucous, Urine 0 SEEN /hpf (<or=2+)
[2024-10-14 14:48] LABS: Differential Indicated SCAN CRITERIA MET
[2024-10-14 14:49] LABS: Color, Urine Yellow (Yellow); Glucose, Dipstick Normal (Normal); Ketone-Dipstick 5 mg/dl (Negative); Leukocyte Esterase-Dipstick 500 /ul (Negative); Nitrite-Dipstick Negative (Negative); Occult Blood-Urine 150 /ul (Negative); Protein-Dipstick 100 mg/dl (Negative); Specific Gravity, Urine 1.010 (1.002-1.030)
[2024-10-14 14:50] LABS: Urine Bilirubin Dipstick 3 mg/dL (Negative)
[2024-10-14 14:55] LABS: Squamous Epithelial Cells - UA 0-5 SEEN /hpf (5-10)
[2024-10-14 14:56] LABS: Internal QC Validated? YES +Cl - CLEAR BKGD; Pregnancy, Urine Negative Negative; Red Blood Cells-Urine 0-5 SEEN /hpf (0-5)
[2024-10-14 14:57] LABS: Record Kit Lot#,Urine Preg 0000962302
[2024-10-14 15:13] LABS: AST(SGOT) 26 U/L (<=31); Alanine Aminotransfer ALT/SGPT 22 U/L (<=34); Albumin, Serum 3.1 g/dL (3.5-5.0); Alkaline Phosphatase 118 U/L (35-104); Anion Gap 15 (5-15); BUN 7 mg/dL (4-19); BUN/Creat Ratio 9.3 RATIO (10-20); Calcium,Total 8.9 mg/dL (7.6-11.0); Carbon Dioxide 23.5 mmol/L (21.0-32.0); Chloride 99 mmol/L (98-108); Estimated Creatinine Clearance 123.43 ml/min (50-250); Globulin 4.5 g/dL (2.2-4.2); Glucose 179 mg/dL (70-99); Potassium 3.8 mmol/L (3.3-5.1)
[2024-10-14 15:35] VITALS: BP 128/90; PULSE 82; O2SAT 97
--- NOTE | 2024-10-14 16:19 | US_ITS ---
PROCEDURE: RIGHT UPPER QUADRANT ABDOMINAL ULTRASOUND 10/14/2024 REASON FOR EXAM: ELEVATED BILIRUBIN, FEVER, ABD PAIN COMPARISON: Abdominal CT from same day. FINDINGS: Liver: Grossly normal in size with homogeneous parenchymal echotexture. Gallbladder: Gallbladder is contracted around multiple small stones and echogenic sludge material. Gallbladder wall thickening can not be accurately assessed. There is no pericholecystic fluid. No biliary ductal dilatation. No sonographic Fonseca's sign was elicited on this exam. Common bile duct: Normal in caliber measuring up to 0.3 cm in diameter. Pancreas: Visualized portions are sonographically unremarkable. Other: Visualized right kidney is unremarkable. No right upper quadrant ascites. US/Gallbladder IMPRESSION: Cholelithiasis. Gallbladder is contracted around multiple small stones and slu dge. No definitive evidence for acute cholecystitis. If there is persistent clinical concern, suggest HIDA scan. Reading Location: [id number]
--- NOTE | 2024-10-14 16:40 | CM.ED ---
Social work Reason for referral: portable O2 Referral source: Dr. Kailee OMER received request from Dr. Dugan regarding patient possibly receiving portable home O2 prior to patient discharging home. Patient reportedly is on constant 2L of O2 at home due to an unknown source in [place]. Reportedly, patient moved from [place] to [place] at the beginning of the year and does not have portability. Patient's O2 in triage was at 88% without O2 due to no portability. SW entered patient's room, introducing self and role at [facility]. Patient welcomed SW visit and confirmed having home O2 without portability. Patient stated having a concentrator that patient borrows from patient's mother in law, as well as having a concentrator that patient brought to [place] from [place]. Patient confirmed not having a PCP appointment before mid-November. However, patient could not recall where patient had the appointment; patient thought possibly at [place]. Patient stated being able to use patient's mother in law's portable when necessary, though the portable O2 would only stay on for about 20 minutes before shutting off, so patient stated not leaving the house often. Patient originally stated in triage that patient only had asthma, but patient stated to this SW during conversation that patient had COPD and was hospitalized for pneumonia a couple of times while in [place]. Patient thought the concentrator was from [facility], but was unsure; patient was also unsure who patient's primary care doctor was in [place] who first prescribed the O2. When SW returned to patient's room, patient's mother in law, Sujey, was present. Sujey stated that patient's PCP appointment was at [facility] and stated it was indeed mid-November. Patient agreed to have SW call [facility] to see if an earlier time could be provided to patient. Sujey stated knowing the concentrator patient brought from [place] had the provider information and phone number, though Sujey stated not knowing if the concentrator was still good due to the roaches and other stuff in the camper down there. Sujey stated need for a PCP appointment due to patient's gallbladder attacks and patient agreed. SW called [facility] at [phone] (ph: [phone]) and had to leave a voicemail. By 1625, they returned this SW's call and SW was able to make an appointment for patient on Sunday 10/[address] Choudhary. This information was added to a [facility] paper and passed along to to patient and Sujey. Patient and Sujey asked if SW could help with getting patient's medical records from [place]. SW [facility]. No other needs identified at this time. Sonal Vazquez, CORRESPONDENCE SECTION SUPERVISOR, OPERA SINGER
[2024-10-14 17:00] VITALS: BP 125/90; O2SAT 95
[2024-10-14 17:33] LABS: Differential Comment SCANNED
[2024-10-14 18:56] VITALS: BP 131/89; PULSE 81; RESP 18; TEMP 36.7; O2SAT 99
[2024-10-14 18:57] VITALS: BP 131/89; PULSE 81; RESP 18; TEMP 36.7; O2SAT 99
[2024-10-14] MEDS: Smz/Tmp Ds Tablet 1 TABLET PO (20:15)
== END 2024-10-14 20:17 | disposition home or self-care (01) ==
PROVIDERS: Emergency Provider Emergency Medicine; Visit Provider Emergency Medicine
DX: R10.32 Left lower quadrant pain (principal); J44.9 Chronic obstructive pulmonary disease, unspecified; N12 Tubulo-interstitial nephritis, not specified as acute or chronic; K80.10 Calculus of gallbladder with chronic cholecystitis without obstruction; Z99.81 Dependence on supplemental oxygen; F17.210 Nicotine dependence, cigarettes, uncomplicated; D72.829 Elevated white blood cell count, unspecified
CPT/HCPCS: 74177; 76705; 80053; 81001; 81025; 83605; 85025; 87077; 87086; 87088; 87186; 94640; 96374; 99283; Q9967; A4216

== ENCOUNTER 2024-10-15 18:52 | Inpatient (IN) | payer BC, MEDICAID, SELFPAY ==
[2024-10-15] VITALS (18 sets, daily range): BP systolic 110–135; BP diastolic 57–96; PULSE 83–111; RESP 9–29; TEMP 37–38.7; O2SAT 95–98; BMI 48.4
--- NOTE | 2024-10-15 19:30 | EDS_ITS ---
HPI HPI - Female History of Present Illness Chief Complaint: Complaint PFSH [facility] Medical History (Updated 10/15/24 @ 19:02 by Palma Briscoe) Anxiety Hypertension COPD (chronic obstructive pulmonary disease) Asthma Home Medications ?Medication ?Instructions ?Recorded ?Last Taken ?Type ibuprofen 600 mg tablet 600 mg PO Q6H PRN PRN fever or 10/14/24 Unknown Rx pain #20 TABLETS ondansetron 4 mg disintegrating 4 mg PO Q8H PRN PRN Na usea #10 tabs 10/14/24 Unknown Rx tablet Allergy/AdvReac Type Severity Reaction Status Date / Time No Known Allergies Allergy Verified 10/15/24 18:55 Social History Smoking Status: Current every day smoker tobacco type: cigarettes EXAM Physical Exam Const Vital Signs: 10/15/24 18:55 10/15/24 19:00 10/15/24 19:34 Temperature 101.7 F H 101.7 F H Temperature Source Oral Oral Pulse Rate 111 H 111 H Respiratory Rate 24 H 24 H Blood Pressure 126/83 H 126/83 H Blood Pressure Mean 97 97 Pulse Ox 95 97 Oxygen Delivery Method Nasal Cannula Nasal Cannula Room Air Oxygen Flow Rate (L/min) 3 3 10/15/24 19:37 10/15/24 19:45 10/15/24 19:55 Temperature Temperature Source Pulse Rate 110 H 110 H 108 H Respiratory Rate 28 H 26 H 20 H Blood Pressure Blood Pressure Mean Pulse Ox Oxygen Delivery Method Oxygen Flow Rate (L/min) 10/15/24 20:00 10/15/24 20:00 10/15/24 20:15 Temperature 99.4 F H Temperature Source Oral Pulse Rate 96 103 H 97 Respiratory Rate 27 H 29 H 28 H Blood Pressure 135/84 H Blood Pressure Mean 101 Pulse Ox 96 Oxygen Delivery Method Room Air Oxygen Flow Rate (L/min) 10/15/24 20:27 10/15/24 20:30 10/15/24 20:45 Temperature Temperature Source Pulse Rate 98 Respiratory Rate 23 H Blood Pressure 135/84 H 115/86 H 122/67 H Blood Pressure Mean 99 93 83 Pulse Ox Oxygen Delivery Method Oxygen Flow Rate (L/min) 10/15/24 20:55 10/15/24 21:00 10/15/24 21:00 Temperature 98.7 F Temperature Source Oral Pulse Rate 90 90 Respiratory Rate 18 Blood Pressure 115/77 127/96 H Blood Pressure Mean 89 106 Pulse Ox 98 Oxygen Delivery Method Room Air Oxygen Flow Rate (L/min) 10/15/24 21:15 10/15/24 21:30 10/15/24 21:45 Temperature Temperature Source Pulse Rate 87 90 Respiratory Rate 21 H 25 H Blood Pressure 126/82 H 115/77 116/57 L Blood Pressure Mean 94 89 65 Pulse Ox Oxygen Delivery Method Oxygen Flow Rate (L/min) 10/15/24 21:46 10/15/24 22:00 10/15/24 22:00 Temperature 98.7 F 98.6 F Temperature Source Oral Pulse Rate 87 85 83 Respiratory Rate 20 H 20 H 27 H Blood Pressure 116/57 L 110/60 114/72 Blood Pressure Mean 76 76 84 Pulse Ox 96 96 Oxygen Delivery Method Room Air Oxygen Flow Rate (L/min) 10/15/24 22:15 Temperature Temperature Source Pulse Rate 84 Respiratory Rate 9 L Blood Pressure 120/78 Blood Pressure Mean 91 Pulse Ox Oxygen Delivery Method Oxygen Flow Rate (L/min) [facility] Narrative Medical decision making narrative: HISTORY OF PRESENT ILLNESS: Chief complaint: Fever, cough, urinary symptoms 39-year-old female history of COPD, hypertension, anxiety and asthma typically on 2 L home oxygen presents with concern for worsening kidney infection. No she was seen yesterday but left AGAINST MEDICAL ADVICE. REVIEW OF SYSTEMS: Pertinent positives: Fever, cough, dysuria Pertinent negatives: [] PHYSICAL EXAM: Nursing triage notes reviewed, Vital signs reviewed Constitutional: please see mdm HENT: MMM Eyes: Pupils equal round and reactive to light, Extraocular muscles intact Neck: No stridor, no JVD, full neck ROM Lungs: Clear to auscultation, No wheezing or rales. No increased work of breathing, no conversational dyspnea, no accessory muscle use, no nasal flaring. No respiratory distress noted Heart: Regular rate and rhythm, No murmurs, No rubs and No gallops, 2+ distal pulses (radial, femoral, posterior tibial) in all extremities Abdomen: Soft, there is no tenderness, rigidity, rebound or guarding, no obvious peritoneal signs, no palpable pulsatile abdominal masses, no auscultated abdominal bruit : No CVAT Extremities: No edema Neuro: No new focal neurological deficits, cranial nerves II through XII intact, 5/5 strength in all present extremities. Intact sensation to light touch in all present extremities, 2+ reflexes bilateral patella tendons. Skin: No rash or lesions noted MEDICAL DECISION MAKING: Chief Complaint: please see HPI External records reviewed: Reviewed ED evaluation from yesterday. Reviewed CT scan abdomen pelvis from yesterday which showed cystitis, left urethritis and pyelonephritis as well as cholelithiasis Ultrasound was then obtained which showed no definitive evidence of acute cholecystitis Factors affecting care: As per HPI Social determinants of health: none History obtained from others: none Consults: none [facility] Narrative: The patient was initially tachycardic, tachypneic and febrile saturating 95% on 3 L nasal cannula I considered the following differential diagnosis: Sepsis, pyelonephritis, pneumonia I obtained broad lab and imaging work to further determine if the patient was suffering from a life-threatening etiology. Initially assessed the patient 1 L normal saline, 15 mg IV Toradol, empiric antibiotics for pyelonephritis Sepsis protocol used ALL IMAGES (IF OBTAINED) HAVE BEEN PERSONALLY REVIEWED AND INTERPRETED BY MYSELF . CBC leukocytosis suggestive of systemic relation, hemoconcentration suggestive of dehydration, no thrombocytopenia No coagulopathy BMP without significant electrolyte abnormalities, no acute kidney injury Elevation bilirubin consistent with prior studies Urinalysis consistent with infection The patient's chest x-ray was read reviewed personally myself showed no evidence of obvious focal consolidation or volume overload. Radiologist noted cardiomegaly Lactate is wnl indicating no end-organ hypoperfusion and/or hypoxia. Given the patient's multiple SIRS criteria, source of infection concern for sepsis and pyelonephritis patient was given ceftriaxone and admitted to PCU full under Dr. Fagan. Urine culture sent. Upon re-evaluation patient had adequate volume status and tissue perfusion. The patient and/or family, caregivers express understanding. The patient and/or family, caregivers agrees with the plan. Shared decision making: I will have a discussion with the patient and or visitors regarding risk/benefits of further testing or admission. They will be made aware of of the risk/benefits inherent in this decision they will be given the opportunity to voice understanding. Total critical care time today provided was at least 35 minutes. This excludes separately billable procedures. Critical care time (if documented) is secondary to the patient having high probability of clinically significant/life threatening deterioration in the patient's condition which required my urgent intervention. Impression: 1. Sepsis 2. Pyelonephritis 3. Tachycardia 4. Hyperbilirubinemia Dispo: Admit to PCU This note was generated with [facility] dictation software. It may contain incorrect words, spelling, and punctuation that were not noted in review of the chart prior to signing. Lab Data Labs: Laboratory Results - last 24 hr 10/15/24 10/15/24 10/15/24 18:35 19:22 20:14 WBC 13.6 H RBC 5.78 H Hgb 15.8 H Hct 48.3 H MCV 83.6 MCH 27.3 MCHC 32.7 RDW Std Deviation 46.5 H RDW Coeff of Dieudonne 15.4 H Plt Count 154 MPV 12.1 H Immature Gran % (Auto) 0.400 Neut % (Auto) 79.5 H Lymph % (Auto) 8.2 L [place] % (Auto) 11.3 H Eos % (Auto) 0.1 Baso % (Auto) 0.5 Absolute Neuts (auto) 10.8 H Absolute Lymphs (auto) 1.12 Nucleated RBC % 0 Differential Comment SCANNED PT 15.1 H INR 1.2 APTT 35.2 Sodium 137 Potassium 4.2 Chloride 95 L Carbon Dioxide 26.6 Anion Gap 16 H BUN 10 Creatinine 0.95 Estim Creat Clear Calc 99.05 Est GFR (MDRD) Non-Af 79 BUN/Creatinine Ratio 10.5 Glucose 94 Lactic Acid < 1.0 Calcium 9.0 Total Bilirubin 3.14 H AST 25 ALT 18 Alkaline Phosphatase 140 H Total Protein 8.1 Albumin 3.3 L Globulin 4.8 H Albumin/Globulin Ratio 0.7 L Urine Color Aky Urine Clarity Sl. Cloudy Urine pH 6.0 Ur Specific [place] 1.010 Urine Protein 100 H Urine Glucose (UA) Normal Urine Ketones 5 H Urine Occult Blood 250 H Urine Nitrite Positive H Urine Bilirubin 3 H Urine Urobilinogen 12 H Ur Leukocyte Esterase 100 H Urine RBC 0-5 SEEN Urine WBC 5-10 SEEN Ur Squamous Epith Cells 0-5 SEEN Urine Bacteria 2+ Urine Mucus 0 SEEN Radiography Diagnostic Testing: Clinical Impression(s) from Imaging Studies Chest X-Ray 10/15/24 20:30 IMPRESSION: Cardiomegaly. No appreciable focal consolidation or sizable pleural effusion. Reading Location: [facility] Discharge Plan Triage Chief Complaint: Complaint ED Provider: Gregory Harper Dx/Rx/DC Orders Prescriptions: No Action ibuprofen 600 mg tablet 600 mg PO Q6H PRN PRN (Reason: fever or pain) Qty: 20 0RF ondansetron 4 mg tablet,disintegrating 4 mg PO Q8H PRN PRN (Reason: Nausea) Qty: 10 0RF Patient Comments: didn't pickle pumper rx Primary Care Provider: Care Physician,No Primary Referrals: Care Physician,No Primary [Primary Care Provider] - Print Language: Tanzanian
--- NOTE | 2024-10-15 19:33 | EKG12_ITS ---
Test Reason : Blood Pressure : */* mmHG Vent. Rate : 104 BPM Atrial Rate : 104 BPM P-R Int : 148 ms QRS Dur : 92 ms QT Int : 336 ms P-R-T Axes : 67 118 0 degrees QTcB Int : 441 ms Sinus tachycardia Right atrial enlargement Right ventricular hypertrophy T wave abnormality, consider inferior ischemia Abnormal ECG Confirmed by ARACELI DE LOS SANTOS, GONZALO ([id number]), makeup editor ADELIA CHOI ([id number]) on 10/16/2024 8:41:58 AM Referred By: Confirmed By: GONZALO CHARLES MD
[2024-10-15 19:51] LABS: Mucous, Urine 0 SEEN /hpf (<or=2+)
[2024-10-15 19:53] LABS: Color, Urine Amber (Yellow); Glucose, Dipstick Normal (Normal); Ketone-Dipstick 5 mg/dl (Negative); Leukocyte Esterase-Dipstick 100 /ul (Negative); Nitrite-Dipstick Positive (Negative); Occult Blood-Urine 250 /ul (Negative); Protein-Dipstick 100 mg/dl (Negative); Specific Gravity, Urine 1.010 (1.002-1.030)
[2024-10-15 19:57] LABS: Hematocrit 48.3 % (37-47); Hemoglobin 15.8 g/dL (12.0-15.0); Immature Granulocytes Count 0.050 X10^3/uL (0.0-0.0); Mean Corp Hgb Conc 32.7 g/dL (32-36); Mean Corpuscular Volume 83.6 fL (81-99); Mean Platelet Vol. 12.1 fl (6.2-12.0); NRBC Flagged by Analyzer 0 % (0-5); POSITIVE DIFFERENTIAL YES; Platelet Count 154 K/mm3 (150-450); RBC Distribution Width CV 15.4 % (11.6-14.6); RBC Distribution Width SD 46.5 fl (35.1-43.9); Red Blood Count 5.78 M/mm3 (4.2-5.4); White Blood Count 13.6 K/mm3 (4.4-11.0)
[2024-10-15 19:57] LABS: Urine Bilirubin Dipstick 3 mg/dL (Negative)
[2024-10-15 20:06] LABS: Red Blood Cells-Urine 0-5 SEEN /hpf (0-5); Squamous Epithelial Cells - UA 0-5 SEEN /hpf (5-10)
[2024-10-15 20:16] LABS: Partial Thromboplast Time 35.2 Seconds (24.1-36.2); Prothrombin Time (Protime)PT. 15.1 SECONDS (11.7-14.9)
[2024-10-15] MEDS: 0.9% Normal Saline (1000mL) 1,000 ML 999 ML IV (20:17)
[2024-10-15 20:28] LABS: Differential Indicated SCAN CRITERIA MET
--- NOTE | 2024-10-15 20:30 | RAD_ITS ---
PROCEDURE: CHEST 1 VIEW (PORTABLE) 10/15/2024 REASON FOR EXAM: SHORTNESS OF BREATH TECHNIQUE: Frontal view of the chest. COMPARISON: 05/17/2024 FINDINGS: Lungs/Pleura: Large patient body habitus. No definite focal consolidation, pneumothorax, or sizable pleural effusion. Heart/Mediastinum: Cardiomegaly. Probable mild vascular congestion. Bones/Soft tissues: Within normal limits. RAD/Chest 1 View (Portable) IMPRESSION: Cardiomegaly. No appreciable focal consolidation or sizable pleural effusion. Reading Location: [id number]
[2024-10-15 20:39] LABS: Differential Comment SCANNED
[2024-10-15 20:54] LABS: AST(SGOT) 25 U/L (<=31); Alanine Aminotransfer ALT/SGPT 18 U/L (<=34); Albumin, Serum 3.3 g/dL (3.5-5.0); Alkaline Phosphatase 140 U/L (35-104); Anion Gap 16 (5-15); BUN 10 mg/dL (4-19); BUN/Creat Ratio 10.5 RATIO (10-20); Calcium,Total 9.0 mg/dL (7.6-11.0); Carbon Dioxide 26.6 mmol/L (21.0-32.0); Chloride 95 mmol/L (98-108); Estimated Creatinine Clearance 99.05 ml/min (50-250); Globulin 4.8 g/dL (2.2-4.2); Glucose 94 mg/dL (70-99); Potassium 4.2 mmol/L (3.3-5.1)
--- NOTE | 2024-10-15 22:01 | HP.PCM.HOS_ITS ---
[facility] - General General Date of Admission: 10/15/24 Date of Service: 10/15/24 Chief Complaint: Abdominal Pain. HPI Narrative JALYN DOZIER, is a 39 F with a past medical history of morbid obesity; with BMI of 48.5 this admission, chronic tobacco abuse; with subsequent asthma/COPD, chronic hypoxic respiratory failure on 2L NC, history of gallstones with biliary colic, chronic amenorrhea; with no cycle for years without firm medical explanation (but with negative urine test), generalized anxiety, OA with patient having recently moved from [place], [place] to this area with visit to this ER yesterday for abdominal pain that lasted 2 days with nausea with fever and chills and found to have leukocytosis of 15.2 K with hyperbilirubinemia of 2.81 mg/dL and UA grossly positive for acute cystitis; without hematuria with a corresponding CT scan of the abdomen and pelvis that revealed cystitis with Left ureteritis and pyelonephritis in addition to cholelithiasis, without evidence for acute cholecystitis followed by gallbladder ultrasound that revealed cholelithiasis with contracted gallbladder around multiple small stones and sludge with no definitive evidence of acute cholecystitis (if there is persistent clinical concern, suggest HIDA scan) who then left AMA who now re-presents to [facility] ER complaining of worsening abdominal pain. Ms. Dozier reports her clinical condition has continued to decline since yesterday with worsening fever, dysuria and nonproductive cough so she decided to come back in for further evaluation and treatment. In the ER she was noted to have a leukocytosis of 13.6 K with a UA positive for Acute Cystitis; without hematuria with the ER physician concern for possible sepsis due to Left Ureteritis and Pyelonephritis complicated by worsening Hyperbilirubinemia of 3.14 mg/dL present on admission in the setting of known chronic gallstones with biliary colic with HIDA scan (without CCK) pending at this time. She was then admitted to the PCU for ongoing care for state that is expected to extend beyond 2 midnights. [facility] Medical History Anxiety Hypertension COPD (chronic obstructive pulmonary disease) Asthma Home Medications ?Medication ?Instructions ?Recorded ?Last Taken ?Type ibuprofen 600 mg tablet 600 mg PO Q6H PRN PRN fever or 10/14/24 Unknown Rx pain #20 TABLETS ondansetron 4 mg disintegrating 4 mg PO Q8H PRN PRN Na usea #10 tabs 10/14/24 Unknown Rx tablet Allergy/AdvReac Type Severity Reaction Status Date / Time No Known Allergies Allergy Verified 10/15/24 18:55 Social History Smoking Status: Current every day smoker tobacco type: cigarettes ROS ROS Narrative Review of Systems: Constitutional: Patient admits to fever but she denies chills. Eyes: Patient denies change in vision or discharge from eyes. ENT: Patient denies runny nose, sore throat or ear pain. Resp: Patient chronically short of breath on 2L NC as per HPI. CV: Patient denies chest pain, palpitations, heart racing or lower extremity edema. GI: Patient admits to abdominal pain as per HPI. She denies nausea, vomiting, diarrhea or constipation. : Patient admits to dysuria but she denies hematuria. MSK: Patient denies arthralgias or myalgias. Skin: Patient denies rash, abscess, wounds or jaundice. Psych: Patient denies symptoms of uncontrolled depression or anxiety. Neuro: Patient denies headache, paresthesias or focal neurologic deficits. Allergy: Patient denies lip swelling, tongue swelling or urticaria. Hematology: Patient denies easy bleeding or easy bruisability. Endocrinology: Patient denies polyuria, polydipsia, polyphagia or heat/cold intolerance. 14 point ROS otherwise negative except for positives noted above in HPI. Vital Signs Vital Signs Vital Signs: 10/15/24 18:55 10/15/24 19:00 10/15/24 19:34 Temperature 101.7 F H 101.7 F H Temperature Source Oral Oral Pulse Rate 111 H 111 H Respiratory Rate 24 H 24 H Blood Pressure 126/83 H 126/83 H Blood Pressure Mean 97 97 Pulse Ox 95 97 Oxygen Delivery Method Nasal Cannula Nasal Cannula Room Air Oxygen Flow Rate (L/min) 3 3 10/15/24 19:55 10/15/24 20:00 10/15/24 20:55 Temperature 99.4 F H Temperature Source Oral Pulse Rate 108 H 96 90 Respiratory Rate 20 H 27 H Blood Pressure 135/84 H Blood Pressure Mean 101 Pulse Ox 96 Oxygen Delivery Method Room Air Oxygen Flow Rate (L/min) 10/15/24 21:00 10/15/24 21:46 Temperature 98.7 F 98.7 F Temperature Source Oral Pulse Rate 90 87 Respiratory Rate 18 20 H Blood Pressure 115/77 116/57 L Blood Pressure Mean 89 76 Pulse Ox 98 96 Oxygen Delivery Method Room Air Oxygen Flow Rate (L/min) Weight Weight: 264 lb 15.93 oz Body Mass Index (BMI) 48.4 Physical Exam Const alert, oriented x3 and no apparent distress Constitutional Narrative: Patient is morbidly obese. General Appearance: cooperative HEENT normocephalic, head/scalp atraumatic, hearing grossly normal bilaterally and moist oral mucous membranes Eyes PERRL, EOMs intact bilaterally and conjunctivae normal Neck no lymphadenopathy, supple and no JVD Resp normal respiratory effort, no retractions, no use of accessory muscles and clear to auscultation bilaterally Cardio regular rate and regular rhythm GI normal to inspection, nondistended, normoactive bowel sounds, soft to palpation, non-tender and non-distended GI Narrative: Morbidly obese. Extremity normal to inspection, full ROM and no clubbing, cyanosis or edema Skin Skin Narrative: Patient has no evidence of rash, abscess, wounds or jaundice. Neuro oriented x3, CN's II-XII intact bilaterally, moves all extremities and no focal motor deficits Sensorium / Orientation: awake, alert, oriented to person, oriented to place and oriented to time Speech: speech normal Psych affect normal Results Medical Records Data Attestation: I reviewed the patient's medical records Lab / Micro Data Attestation: I reviewed the patient's lab results. 10/15/24 18:35 10/15/24 18:35 Labs: Laboratory Results - last 24 hr 10/15/24 18:35: WBC 13.6 H, RBC 5.78 H, Hgb 15.8 H, Hct 48.3 H, MCV 83.6, MCH 27.3, MCHC 32.7, RDW Std Deviation 46.5 H, RDW Coeff of Dieudonne 15.4 H, Plt Count 154, MPV 12.1 H, Immature Gran % (Auto) 0.400, Neut % (Auto) 79.5 H, Lymph % (Auto) 8.2 L, [place] % (Auto) 11.3 H, Eos % (Auto) 0.1, Baso % (Auto) 0.5, A bsolute Neuts (auto) 10.8 H, Absolute Lymphs (auto) 1.12, Nucleated RBC % 0, Differential Comment SCANNED, PT 15.1 H, INR 1.2, APTT 35.2, Sodium 137, Potassium 4.2, Chloride 95 L, Carbon Dioxide 26.6, Anion Gap 16 H, BUN 10, Creatinine 0.95, Estim Creat Clear Calc 99.05, Est GFR (MDRD) Non-Af 79, BUN/Creatinine Ratio 10.5, Glucose 94, Calcium 9.0, Total Bilirubin 3.14 H, AST 25, ALT 18, Alkaline Phosphatase 140 H, Total Protein 8.1, Albumin 3.3 L, G lobulin 4.8 H, Albumin/Globulin Ratio 0.7 L 10/15/24 19:22: Urine Color Kay, Urine Clarity Sl. Cloudy, Urine pH 6.0, Ur Specific [place] 1.010, Urine Protein 100 H, Urine Glucose (UA) Normal, Urine Ketones 5 H, Urine Occult Blood 250 H, Urine Nitrite Positive H, Urine Bilirubin 3 H, Urine Urobilinogen 12 H, Ur Leukocyte Esterase 100 H, Urine RBC 0-5 SEEN, Urine WBC 5-10 SEEN, Ur Squamous Epith Cells 0-5 SEEN, Urine Bacteria 2+, Urine Mucus 0 SEEN 10/15/24 20:14: Lactic Acid < 1.0 Imaging Radiology Impression Chest X-Ray 10/15/24 20:30 IMPRESSION: Cardiomegaly. No appreciable focal consolidation or sizable pleural effusion. Reading Location: [facility] Assessment & Plan Assessment/Plan (1) Acute cystitis: QUALIFIERS: Hematuria presence: without hematuria Qualified Code(s): N30.00 - Acute cystitis without hematuria (2) Ureteritis due to infection: (3) Pyelonephritis: (4) Leukocytosis: QUALIFIERS: Leukocytosis type: unspecified Qualified Code(s): D 72.829 - Elevated white blood cell count, unspecified (5) Hyperbilirubinemia: (6) Recurrent biliary colic: (7) Tobacco abuse: (8) Morbid obesity with BMI of 45.0-49.9, adult: PLAN: Plan 1. Acute Cystitis; without hematuria with CT scan of the abdomen and pelvis that revealed cystitis with Left Ureteritis and Pyelonephritis with Leukocytosis of 13.6 K present on admission after leaving ER AMA yesterday - Admit to PCU. Continue empiric IV ceftriaxone begun in ER and await culture and sensitivity data. Give ketorolac IV as needed for [id number] (level 1-5/10) pain or fever. Give morphine IV as needed for severe (level 6-10/10) pain. Give ondansetron IV as needed for nausea and vomiting. Patient had no other signs or symptoms of sepsis present on admission. 2. Worsening Hyperbilirubinemia of 3.14 mg/dL present on admission in the setting of known chronic gallstones with biliary colic with HIDA scan (without CCK) pending at this time complicating #1 - Check HIDA scan in a.m. to confirm suspicion of dyskinetic gallbladder with biliary colic. Give IV pantoprazole. Finally, we will also consult general surgery see this patient on rounds in the a.m. for further recommendations with help appreciated in advance. 3. Chronic tobacco abuse; with subsequent asthma/COPD and chronic hypoxic respiratory failure on 2L NC compounding #1 & #2 - Tobacco Cessation will be strongly encouraged with nicotine patch however to control cravings. Patient's asthma/COPD is stable with no evidence of acute flare at this time. 4. Morbid (class III) obesity; with BMI of 48.5 this admission adding to the burden of disease outlined from #1 - #3 - Weight loss was recommended. Check TSH. This complicates her case and may hamper recovery. 5. Chronic amenorrhea; with no cycle for years without firm medical explanation (but with negative urine test) - Noted. 6. Generalized anxiety - Give low-dose benzodiazepines as needed for breakthrough symptoms. 7. OA - We will follow pain regimen and scales outlined in #1. 8. DVT/GI prophylaxis - Enoxaparin 40 mg sq BID plus SCD's. Pantoprazole 40 mg IV daily. Total time: Approximately (but not less than) 75 minutes. Charges/Coding Visit Charges Inpatient E&M: 03251 Init Hosp L3
--- OUTSIDE RECORDS SUMMARY | 2024-10-15 23:34 | XMS RPT_ITS | CCD ---
Author Organization [facility] Care Team Providers Care Hand I Blocker Name Role Phone Dr. Pavel Lantigua DO Attending Provider Dr. Pavel Lantigua DO Emergency Provider [phone] Care Physician, No Primary Primary Care Provider Unavailable Dr. Christiano Berry DO Emergency Provider [phone] Pavel Lantigua Attending Unavailable Care Physician, No Primary Primary Care Unava ilable Christiano Berry Attending Unavailable Care Physician, No Primary Primary Care Unava ilable Care Physician, No Primary Primary Care Provider Unavailable Dr. Vika Dugan DO Emergency Provider [phone] Medications Current Medications Medication Drug Class(es) Dates Sig (Normalized) Sig (Original) ibuprofen 600 mg oral tablet (1 source) Nonsteroidal Anti-inflammatory Drug Start: 10-14-2024 take 1 tablet by mouth every six hours as needed for pain Ibuprofen 600 mg tablet Active 600 mg PO EVERY 6 HOURS NEEDED as needed for fever or pain 20 October 14, 2024 12:00am ondansetron 4 mg disintegrating oral tablet (1 source) Serotonin-3 Receptor Antagonist Start: 10-14-2024 take 1 tablet by mouth every eight hours as needed for nausea Ondansetron 4 mg tablet,disintegr ating Active 4 mg PO EVERY 8 HOURS NEEDED as needed for Nausea 10 October 14, 2024 12:00am sulfamethoxazole 800 mg / trimethoprim 160 mg oral tablet (1 source) Dihydrofolate Reductase Inhibitor Antibacterial, Sulfonamide Antimicrobial Start: 10-14-2024 Sulfamethoxazole -Trimethoprim (Bactrim Ds) 800-160 mg tablet Active 1 {tbl} PO TWICE A DAY 28 October 14, 2024 12:00am Completed/Discontinued Medications Medication Drug Class(es) Dates Sig (Normalized) Sig (Original) acetaminophen 325 mg / oxyCODONE hydrochloride 5 mg oral tablet (2 sources) Opioid Agonist Start: End: Oxycodone-Acetaminophen 5-325 mg tablet Discontinued 1 {tbl} PO EVERY 6 HOURS NEEDED as needed for Pain 12 3 June 10, 2024 October 14, 2024 1:53pm Cholelithiasis Acute abdominal pain Calculus of gallbladder without cholecystitis without obstruction Unspecified abdominal pain hydroCHLOROthiazide 25 mg oral tablet (2 sources) Thiazide Diuretic Start: End: take 1 tablet by mouth once daily Hydrochlorothiazide 25 mg tablet Discontinued 25 mg PO DAILY 30 May 17, 2024 1:00am October 14, 2024 1:53pm Problems Problem Classification Problem Date Documented Date Episodic/Chronic Abdominal pain (3 sources) Acute abdominal pain; Translations: [Unspecified abdominal pain] Onset: 06-16-2024 06-10-2024 Episodic Biliary tract disease (3 sources) Biliary calculus; Translations: [Calculus of gallbladder without cholecystitis without obstruction] 06-10-2024 Episodic Diseases of white blood cells (1 source) Leukocytosis; Translations: [Elevated white blood cell count, unspecified] 10-14-2024 Chronic Other circulatory disease (2 sources) Pulmonary venous congestion; Translations: [Other specified symptoms and signs involving the circulatory and respiratory systems] 05-25-2024 Episodic Other lower respiratory disease (2 sources) Dyspnea; Translations: [Dyspnea, unspecified] 05-25-2024 Episodic Other lower respiratory disease (1 source) Shortness of breath; Translations: [Shortness of breath] Onset: 06-03-2024 Episodic Unclassified (1 source) for surgery evaluation of gallbladder Urinary tract infections (1 source) Pyelonephritis; Translations: [Tubulo-interstitial nephritis, not specified as acute or chronic] 10-14-2024 Episodic Results Test Name Value Interpretation Reference Range Facility Absolute lymphocyte countOrd ered By: Vika Dugan on 10-14-2024 Lymphocytes Auto (Unsp spec) [#/Vol] 1.00 10*3/uL 0.83-4.51 [facility] Absolute neutrophil countOrd ered By: Vika Dugan on 10-14-2024 Neutrophils (Bld) [#/Vol] 12.5 10*3/uL High 2.0-7.7 [facility] Anion gap in Serum or Plasma Ordered By: Vika Dugan on 10-14-2024 Anion gap [Moles/Vol] 15 mmol/L 5-15 [facility] Automated lymphocyte count a s percentage of total leukocytesOrdered By: Vika Dugan on 10-14-2024 Lymphocytes/100 WBC Auto (Unsp spec) 6.6 % Low 19-41 [facility] BUN/creatinine ratioOrdered By: Vika Dugan on 10-14-2024 Urea nitrogen/Creatinine [Mass ratio] 9.3 mg/mg Low 10-20 [facility] Basophil percentageOrdered B y: Vika Dugan on 10-14-2024 Basophils/100 WBC (Bld) 0.5 % 0-1 [facility] Bilirubin Test strip Ql (U)O rdered By: Vika Dugan on 10-14-2024 Bilirubin Ql (U) 3 mg/dL High Negative [facility] Comment on above: COLOR OF URINE MAY A FFECT DIPSTICK RESULTS. Bilirubin, totalOrdered By: Vika Dugan on 10-14-2024 Bilirubin [Mass/Vol] 2.81 mg/dL High 0.00-1.30 [facility] Blood manual differential co mment interpretation (narrative result)Ordered By: Vika Dugan on 10-14-2024 Manual differential comment Keven (Bld) [Interp] SCANNED [facility] Carbon dioxide, total [Moles /volume] in Central venous bloodOrdered By: Vika Dugan on 10-14-2024 CO2 [Moles/Vol] 23.5 mmol/L 21.0-32.0 [facility] Chloride assayOrdered By: Nic Dugan on 10-14-2024 Chloride [Moles/Vol] 99 mmol/L 98-108 [facility] Eosinophil percentageOrdered By: Vika Dugan on 10-14-2024 Eosinophils/100 WBC (Bld) 0.2 % 0-5 [facility] Erythrocyte distribution wid th ratioOrdered By: Vika Dugan on 10-14-2024 Erythrocyte distribution width (RBC) [Ratio] 15.5 % High 11.6-14.6 [facility] Erythrocyte distribution wid th standard deviationOrdered By: Vika Dugan on 10-14-2024 Erythrocyte distribution width (RBC) [Ratio] 49.0 fl High 35.1-43.9 [facility] Glomerular filtration rate ( GFR) estimation/1.73 sq m using serum, plasma, or whole bOrdered By: Vika Dugan on 10-14-2024 GFR/1.73 sq M.predicted among non-blacks MDRD (S/P/Bld) [Vol rate/Area] 103 mL/min/{1.73_m2} >60 [facility] Comment on above: mL/min/1.73m2 CKD-EP I Creatinine Equation (2020) Hematocrit Auto (Bld) [Volum e fraction]Ordered By: Vika Dugan on 10-14-2024 Hematocrit (Bld) [Volume fraction] 47.4 % High 37-47 [facility] Hemoglobin measurementOrdere d By: Vika Dugan on 10-14-2024 Hemoglobin (Bld) [Mass/Vol] 15.0 g/dL 12.0-15.0 [facility] Immature granulocytes/100 WB C Auto (Bld)Ordered By: Vika Dugan on 10-14-2024 Immature granulocytes/100 WBC (Bld) 0.700 % 0.0-0.9 [facility] Comment on above: IG% - Immature Granu locytes (promyelocytes, myelocytes and metamyelocytes) > 1% indicates that a LEFT SHIFT is Present. Ketones Test strip Ql (U)Ord ered By: Vika Dugan on 10-14-2024 Ketones Ql (U) 5 mg/dl High Negative [facility] Laboratory - Chemistry and C hemistry - challengeOrdered By: Vika Dugan on 10-14-2024 AST [Catalytic activity/Vol] 26 U/L <32 [facility] Comment on above: Hemolysis present, R esults could be affected. Lactic acid measurementOrder ed By: Vika Dugan on 10-14-2024 Lactate [Moles/Vol] 1.1 mmol/L 0.0-2.0 [facility] MCV (mean corpuscular volume ) determinationOrdered By: Vika Dugan on 10-14-2024 MCV (RBC) [Entitic vol] 86.8 fL 81-99 [facility] Mean corpuscular hemoglobin (MCH) determinationOrdered By: Vika Dugan on 10-14-2024 MCH (RBC) [Entitic mass] 27.5 pg 27.0-32.0 [facility] Mean corpuscular hemoglobin concentration (MCHC) determinationOrdered By: Vika Dugna on 10-14-2024 MCHC (RBC) [Mass/Vol] 31.6 g/dL Low 32-36 [facility] Mean platelet volume determi nationOrdered By: Vika Dugan on 10-14-2024 Platelet mean volume (Bld) [Entitic vol] 11.8 fL 6.2-12.0 [facility] Microscopic analysis of urin e for red blood cells (RBC)Ordered By: Vika Dugan on 10-14-2024 Microscopic analysis of urine for red blood cells (RBC) 0-5 SEEN /hpf 0-5 [facility] Monocyte percentageOrdered B y: Vika Dugan on 10-14-2024 Monocytes/100 WBC (Bld) 10.0 % 0-10 [facility] Mucus LM Ql (Urine sed)Order ed By: Vika Dugan on 10-14-2024 Mucus Ql (Urine sed) 0 SEEN /hpf [facility] Neutrophil percentageOrdered By: Vika Dugan on 10-14-2024 Neutrophils/100 WBC (Bld) 82.0 % High 47-70 [facility] Nitrite Test strip Ql (U)Ord ered By: Vika Dugan on 10-14-2024 Nitrite Ql (U) Negative Negative [facility] Nucleated red blood cell per centageOrdered By: Vika Dugan on 10-14-2024 Nucleated RBC/100 WBC (Bld) [Ratio] 0 % 0-5 [facility] Platelet countOrdered By: Nic Dugan on 10-14-2024 Platelets (Bld) [#/Vol] 171 10*3/uL 150-450 [facility] Platelet estimateOrdered By: Vika Dugan on 10-14-2024 Platelets LM Ql (Bld) ADEQUATE ADEQ [facility] Potassium measurement (mass/ volume)Ordered By: Vika Dugan on 10-14-2024 Potassium (Unsp spec) [Mass/Vol] 3.8 mmol/L 3.3-5.1 [facility] Comment on above: Hemolysis present, R esults could be affected. Protein Test strip Ql (U)Ord ered By: Vika Dugan on 10-14-2024 Protein Ql (U) 100 mg/dl High Negative [facility] RBC Auto (Bld) [#/Vol]Ordere d By: Vika Dugan on 10-14-2024 RBC (Bld) [#/Vol] 5.46 10*6/uL High 4.2-5.4 [facility] Serum creatinine measurement (mass/volume)Ordered By: Vika Dugan on 10-14-2024 Creatinine [Mass/Vol] 0.76 mg/dL 0.70-1.20 [facility] Serum globulin measurementOr dered By: Vika Dugan on 10-14-2024 Globulin (S) [Mass/Vol] 4.5 g/dL High 2.2-4.2 [facility] Serum glucose measurement (m ass/volume)Ordered By: Vika Dugan on 10-14-2024 Glucose [Mass/Vol] 179 mg/dL High 70-99 [facility] Serum or plasma alanine main otransferase (ALT) measurementOrdered By: Vika Dugan on 10-14-2024 ALT [Catalytic activity/Vol] 22 U/L <35 [facility] Serum or plasma albumin donna urement (mass/volume)Ordered By: Vika Dugan on 10-14-2024 Albumin [Mass/Vol] 3.1 g/dL Low 3.5-5.0 [facility] Serum or plasma albumin/glob ulin mass ratioOrdered By: Vika Dugan on 10-14-2024 Albumin/Globulin [Mass ratio] 0.7 {ratio} Low 0.9-2.4 [facility] Serum or plasma alkaline bishop sphatase measurementOrdered By: Vika Dugan on 10-14-2024 ALP [Catalytic activity/Vol] 118 U/L High 35-104 [facility] Serum or plasma calcium donna urement (mass/volume)Ordered By: Vika Dugan on 10-14-2024 Calcium [Mass/Vol] 8.9 mg/dL 7.6-11.0 [facility] Serum or plasma urea nitroge n measurement (mass/volume)Ordered By: Vika Dugan on 10-14-2024 Urea nitrogen [Mass/Vol] 7 mg/dL 4-19 [facility] Sodium levelOrdered By: Sari Dugan on 10-14-2024 Sodium [Moles/Vol] 137 mmol/L 133-145 [facility] Squamous epithelial cells de tection in urine sediment by light microscopyOrdered By: Vika Dugan on 10-14-2024 Epithelial cells.squamous LM Ql (Urine sed) 0-5 SEEN /hpf 5-10 [facility] Total proteinOrdered By: Alina Dugan on 10-14-2024 Protein [Mass/Vol] 7.6 g/dL 5.9-8.4 [facility] Urine clarityOrdered By: Alina Dugan on 10-14-2024 Clarity (U) Sl. Cloudy Clear [facility] Urine color determinationOrd ered By: Vika Dugan on 10-14-2024 Color (U) Yellow Yellow [facility] Urine glucose detectionOrder ed By: Vika Dugan on 10-14-2024 Glucose Ql (U) Normal mg/dl Normal [facility] Urine leukocyte esterase det ection by dipstickOrdered By: Vika Dugan on 10-14-2024 Leukocyte esterase Test strip Ql (U) 500 /ul High Negative [facility] Urine pHOrdered By: Vika tse on 10-14-2024 pH (U) 6.0 [pH] 5.0 - 8.0 [facility] Urine testOrdered By: Vika Dugan on 10-14-2024 HCG ( test) Ql (U) Negative [facility] Comment on above: Very dilute urine sp ecimens, as indicated by a low specificgravity, may not contain sales representative meats levels of hCG. If is still suspected, a first morning urinespecimen should be collected 48 hours later and tested. Urine sediment bacteria coun t by microscopy (number/high power field)Ordered By: Vika Dugan on 10-14-2024 Bacteria LM.HPF (Urine sed) [#/Area] 0 /[HPF] None Seen [facility] Urine specific gravity measu rementOrdered By: Vika Dugan on 10-14-2024 Specific gravity (U) [Rel density] 1.010 1.002-1.030 [facility] Urine urobilinogen measureme ntOrdered By: Vika Bettyrashid on 10-14-2024 Urobilinogen Ql (U) 8 mg/dl High Normal [facility] White blood cell (WBC) count Ordered By: Vika Dugan on 10-14-2024 WBC (Bld) [#/Vol] 15.2 10*3/uL High 4.4-11.0 [facility] White blood cell countOrdere d By: Vika Kailee on 10-14-2024 White blood cell count 10-25 SEEN /hpf 0-5 [facility] Abdomen/Pelvis W IV Cont ONL Yon 06-10-2024 Abdomen/Pelvis W IV Cont ONLY [facility] [address] [place] [address] Abdomen/Pelvis W IV Cont ONLY MR#: [id number] Acct: [id number] Name: JALYN DOZIER CHAVA Rep #: [id number] : 1985 F [id number] From: Bhargav Solomon MD PCP: Care Physician,No Primary Status: [facility] ER Study: Abdomen/Pelvis W IV Cont ONLY Date of Exam: Exam# [id number] Ordering Dr: Christiano Berry DO EXAM: CT Abdomen, Pelvis and Lumbar Spine With Intravenous Contrast CLINICAL INDICATION: ABDOMINAL PAIN TECHNIQUE: Axial computed tomography images of the abdomen, pelvis and lumbar spine with intravenous contrast. This CT exam was performed using one or more of the following dose reduction techniques: automated exposure control, adjustment of the mA and/or kV according to patient size, and/or use of iterative reconstruction technique. COMPARISON: No relevant prior studies available. FINDINGS: LUNG BASES: Unremarkable. No mass. No consolidation. ABDOMEN: LIVER: Hepatomegaly with fatty infiltration. GALLBLADDER AND BILE DUCTS: Cholelithiasis. No ductal dilation. PANCREAS: Unremarkable. No mass. No ductal dilation. SPLEEN: Unremarkable. No splenomegaly. ADRENALS: Unremarkable. No mass. KIDNEYS AND URETERS: Unremarkable. No stones within either kidney. No hydronephrosis. STOMACH AND BOWEL: Anterior ventral hernia of the lower mid abdomen. No bowel obstruction. No mucosal thickening. PELVIS: APPENDIX: Normal appendix. BLADDER: Unremarkable. No mass. REPRODUCTIVE: Unremarkable as visualized. LUMBAR SPINE: VERTEBRAE: Unremarkable. No acute fracture. DISCS/SPINAL CANAL/NEURAL FORAMINA: No acute findings. No significant spinal canal stenosis. ABDOMEN and PELVIS: INTRAPERITONEAL SPACE: Unremarkable. No free air. No significant fluid collection. BONES/JOINTS: No acute fracture. No dislocation. SOFT TISSUES: See above. VASCULATURE: Unremarkable. No abdominal aortic aneurysm. LYMPH NODES: Unremarkable. No enlarged lymph nodes. CT/Abdomen/Pelvis W IV Cont ONLY IMPRESSION: 1. Normal appendix. 2. Anterior ventral hernia of the lower mid abdomen. No bowel obstruction. 3. Hepatomegaly with fatty infiltration. 4. Cholelithiasis. 5. No obstructive uropathy. Reading Location: [facility] CC: Dr. Christiano Berry DO; No Primary Care Physician Machine Set Up: Signed Normal [facility] Absolute neutrophil countOrd ered By: Christiano Berry on 06-10-2024 Neutrophils (Bld) [#/Vol] 5.1 10*3/uL 2.0-7.7 [facility] Anion gap in Serum or Plasma Ordered By: Christiano Berry on 06-10-2024 Anion gap [Moles/Vol] 10 mmol/L 07-31 [facility] BUN/creatinine ratioOrdered By: Christiano Berry on 06-10-2024 Urea nitrogen/Creatinine [Mass ratio] 18.1 mg/mg 01-05 [facility] Basic Metabolic Profile (BMP )on 06-10-2024 BUN/CRE 18.1 RATIO Normal 01-05 [facility] Comment on above: Performed By: #### L 501.2450, L500.3400, L500.2500, L100.0100, L700.6800 #### [facility] Laboratory [facility] [place], [place], [id number] Calcium [Mass/Vol] 6.7 mg/dL Low 7.6-11.0 [facility] Comment on above: Performed By: #### L 501.2450, L500.3400, L500.2500, L100.0100, L700.6800 #### [facility] [address] [place], [address] Chloride [Moles/Vol] 98 mmol/L Normal 98-108 [facility] Comment on above: Performed By: #### L 501.2450, L500.3400, L500.2500, L100.0100, L700.6800 #### [facility] [address] [place], [address] CO2 [Moles/Vol] 30.3 mmol/L Normal 21.0-32.0 [facility] Comment on above: Performed By: #### L 501.2450, L500.3400, L500.2500, L100.0100, L700.6800 #### [facility] [address] [place], [address] Creatinine [Mass/Vol] 0.68 mg/dL Low 0.70-1.20 [facility] Comment on above: Performed By: #### L 501.2450, L500.3400, L500.2500, L100.0100, L700.6800 #### [facility] [address] [place], [address] ECRCL 143.73 ml/min Normal 50-250 [facility] Comment on above: Performed By: #### L 501.2450, L500.3400, L500.2500, L100.0100, L700.6800 #### [facility] [address] [place], [address] GAP 10 Normal 5-15 [facility] Comment on above: Performed By: #### L 501.2450, L500.3400, L500.2500, L100.0100, L700.6800 #### [facility] [address] [place], [address] GFR/1.73 sq M.predicted among non-blacks MDRD (S/P/Bld) [Vol rate/Area] 114 mL/min/{1.73_m2} Normal >60 [facility] Comment on above: Result Comment: mL/m in/1.73m2 CKD-EPI Creatinine Equation (2020) Performed By: #### L 501.2450, L500.3400, L500.2500, L100.0100, L700.6800 #### [facility] [address] [place], [address] Glucose [Mass/Vol] 120 mg/dL High 70-99 [facility] Comment on above: Performed By: #### L 501.2450, L500.3400, L500.2500, L100.0100, L700.6800 #### [facility] [address] [place], [address] Potassium [Moles/Vol] 4.5 mmol/L Normal 3.3-5.1 [facility] Comment on above: Performed By: #### L 501.2450, L500.3400, L500.2500, L100.0100, L700.6800 #### [facility] [address] [place], [address] Sodium [Moles/Vol] 138 mmol/L Normal 133-145 [facility] Comment on above: Performed By: #### L 501.2450, L500.3400, L500.2500, L100.0100, L700.6800 #### [facility] [address] [place], [address] Urea nitrogen [Mass/Vol] 12 mg/dL Normal 4-19 [facility] Comment on above: Performed By: #### L 501.2450, L500.3400, L500.2500, L100.0100, L700.6800 #### [facility] [address] [place], [address] Basophil percentageOrdered B y: Christiano Berry on 06-10-2024 Basophils/100 WBC (Bld) 0.8 % 0-1 [facility] Beta HCG ( test) Ql Ordered By: Christiano Berry on 06-10-2024 Serum Test, Qualitative Negative [facility] Bilirubin Test strip Ql (U)O rdered By: Christiano Berry on 06-10-2024 Bilirubin Ql (U) 1 mg/dL High Negative [facility] Comment on above: COLOR OF URINE MAY A FFECT DIPSTICK RESULTS. Bilirubin directOrdered By: Christiano Berry on 06-10-2024 Bilirubin.direct [Mass/Vol] 0.13 mg/dL 0.00-0.30 [facility] Bilirubin, totalOrdered By: Christiano Berry on 06-10-2024 Bilirubin [Mass/Vol] 0.38 mg/dL 0.00-1.30 [facility] CBC W/Diff, Automatedon 05-18 Absolute Lymph 1.47 X10 3/uL Normal 0.83-4.51 [facility] Comment on above: Performed By: #### L 501.2450, L500.3400, L500.2500, L100.0100, L700.6800 #### [facility] [address] [place], [address] Absolute Neut 5.1 X10 3/uL Normal 2.0-7.7 [facility] Comment on above: Performed By: #### L 501.2450, L500.3400, L500.2500, L100.0100, L700.6800 #### [facility] [address] [place], [address] Basophils/100 WBC (Bld) 0.8 % Normal 0-1 [facility] Comment on above: Performed By: #### L 501.2450, L500.3400, L500.2500, L100.0100, L700.6800 #### [facility] [address] [place], [address] Eosinophils/100 WBC (Bld) 1.6 % Normal 0-5 [facility] Comment on above: Performed By: #### L 501.2450, L500.3400, L500.2500, L100.0100, L700.6800 #### [facility] [address] [place], [address] Erythrocyte distribution width (RBC) [Ratio] 15.1 % High 11.6-14.6 [facility] Comment on above: Performed By: #### L 501.2450, L500.3400, L500.2500, L100.0100, L700.6800 #### [facility] [address] [place], [address] Hematocrit (Bld) [Volume fraction] 47.9 % High 37-47 [facility] Comment on above: Performed By: #### L 501.2450, L500.3400, L500.2500, L100.0100, L700.6800 #### [facility] [address] [place], [address] Hemoglobin (Bld) [Mass/Vol] 14.9 g/dL Normal 12.0-15.0 [facility] Comment on above: Performed By: #### L 501.2450, L500.3400, L500.2500, L100.0100, L700.6800 #### [facility] [address] [place], [address] IG% 0.300 Normal 0.0-0.9 [facility] Comment on above: Result Comment: IG% - Immature Granulocytes (promyelocytes, myelocytes and metamyelocytes) > 1% indicates that a LEFT SHIFT is Present. Performed By: #### L 501.2450, L500.3400, L500.2500, L100.0100, L700.6800 #### [facility] [address] [place], [address] Lymphocytes/100 WBC (Bld) 20.2 % Normal 19-41 [facility] Comment on above: Performed By: #### L 501.2450, L500.3400, L500.2500, L100.0100, L700.6800 #### [facility] [address] [place], [address] MCH (RBC) [Entitic mass] 27.5 pg Normal 27.0-32.0 [facility] Comment on above: Performed By: #### L 501.2450, L500.3400, L500.2500, L100.0100, L700.6800 #### [facility] [address] [place], [address] MCHC (RBC) [Mass/Vol] 31.1 g/dL Low 32-36 [facility] Comment on above: Performed By: #### L 501.2450, L500.3400, L500.2500, L100.0100, L700.6800 #### [facility] [address] [place], [address] MCV (RBC) [Entitic vol] 88.5 fL Normal 81-99 [facility] Comment on above: Performed By: #### L 501.2450, L500.3400, L500.2500, L100.0100, L700.6800 #### [facility] [address] [place], [address] Monocytes/100 WBC (Bld) 6.5 % Normal 0-10 [facility] Comment on above: Performed By: #### L 501.2450, L500.3400, L500.2500, L100.0100, L700.6800 #### [facility] [address] [place], [address] Neutrophils/100 WBC (Bld) 70.6 % High 47-70 [facility] Comment on above: Performed By: #### L 501.2450, L500.3400, L500.2500, L100.0100, L700.6800 #### [facility] [address] [place], [address] Nucleated RBC (Bld) [#/Vol] 0 10*3/uL Normal 0-5 [facility] Comment on above: Performed By: #### L 501.2450, L500.3400, L500.2500, L100.0100, L700.6800 #### [facility] [address] [place], [address] Platelet mean volume (Bld) [Entitic vol] 10.3 fL Normal 6.2-12.0 [facility] Comment on above: Performed By: #### L 501.2450, L500.3400, L500.2500, L100.0100, L700.6800 #### [facility] [address] [place], [address] Platelets (Bld) [#/Vol] 280 10*3/uL Normal 150-450 [facility] Comment on above: Performed By: #### L 501.2450, L500.3400, L500.2500, L100.0100, L700.6800 #### [facility] Laboratory [address] [place], [address] RBC (Bld) [#/Vol] 5.41 10*6/uL High 4.2-5.4 [facility] Comment on above: Performed By: #### L 501.2450, L500.3400, L500.2500, L100.0100, L700.6800 #### [facility] Laboratory [address] [place], [address] RDW SD 48.4 fl High 35.1-43.9 [facility] Comment on above: Performed By: #### L 501.2450, L500.3400, L500.2500, L100.0100, L700.6800 #### [facility] Laboratory [address] [place], [address] WBC (Bld) [#/Vol] 7.3 10*3/uL Normal 4.4-11.0 [facility] Comment on above: Performed By: #### L 501.2450, L500.3400, L500.2500, L100.0100, L700.6800 #### [facility] Laboratory [address] [place], [address] Calcium ionizedOrdered By: Katelynn Berry on 06-10-2024 Ionized Calcium 1.16 mmol/L 1.09-1.30 [facility] Carbon dioxide, total [Moles /volume] in Central venous bloodOrdered By: Christiano Berry on 06-10-2024 CO2 [Moles/Vol] 30.3 mmol/L 21.0-32.0 [facility] Chloride assayOrdered By: Vidal Berry on 06-10-2024 Chloride [Moles/Vol] 98 mmol/L 98-108 [facility] Emergency Department Summary on 06-10-2024 Emergency Department Summary [facility] Medical Records Department [address] [place] [address] Emergency Department Summary 06/10/24 MR#: [id number] Acct: [id number] Name: JALYN DOZIER CHAVA Rep #: [id number] : 1985 39 From: Christiano Berry DO PCP: Care Physician,No Primary Status:DEP ER Location: ED HPI History of Present Illness Chief Complaint: Abd Pain Informant: patient and family Narrative Narrative: 39-year-old female presenting to the emergency room with gallbladder pain and nausea. Patient states that she has a gallbladder problem and does not know what it is. She states that she moved from [place] in March because she has chronic lung and gallbladder issues and the doctors there were not telling her what was going on or trying to fix it. Since arriving in [place] she has not establish care with anybody because she is waiting on medical. By this she means she is waiting to get insurance through the state. She states her pain began around 8:00 this morning and is epigastric and right upper quadrant in nature. She states she has not had a bowel movement for 1 to 2 days. She last had anything to eat last evening. She states that she has home oxygen but she is not wearing that today. She is a smoker. She notes no prior abdominal surgeries. [facility] Medical History Asthma Home Medications ???Medication ???Instructions ???Recorded ???Last Taken ???Type hydrochlorothiazide 25 mg tablet 25 mg PO DAILY #30 tabs 05/17/24 U nknown Rx oxycodone-acetamino phen 5 mg-325 1 tab PO Q6H PRN PRN Pain 3 days 0 06/10/24 Unknown Rx mg tablet #12 TABLETS Allergy/AdvReac Type Severity Reaction Status Date / Time No Known Allergies Allergy Verified 05/17/24 14:52 Family History no significant family his Social History Smoking Status: Current every day smoker tobacco type: cigarettes ROS ROS ED Constitutional Constitutional ED: Denies chills, fever(s) or weight loss Eyes Eyes: Denies change in vision or diplopia ENT ENT ED: Denies ear pain, rhinorrhea or sore throat Cardiovascular Cardiovascular: Denies chest pain, orthopnea, palpitations or racing heartbeat Respiratory/Chest Respiratory/Chest: Denies cough, dyspnea or orthopnea Gastrointestinal Gastrointestinal: Reports abdominal pain and nausea; Denies diarrhea or vomiting Genitourinary Genitourinary ED: Denies dysuria, hematuria or urinary frequency Musculoskeletal Musculoskeletal: Denies arthralgias or myalgias Integumentary Denies abscess or rash Neurologic Neurologic: Denies headache(s) or weakness Psychiatric Psychiatric: Denies anxiety, depression, suicidal ideation or suicidal thoughts Endocrine Endocrinology: Denies polydipsia, polyphagia or polyuria Allergic/Immunologi c Allergic/Immunologi c ED: Denies mouth swelling, tongue swelling or urticaria EXAM Physical Exam Const Vital Signs: 06/10/24 12:27 06/10/24 14:27 06/10/24 15:26 Temperature 98.1 F Temperature Source Temporal Pulse Rate 101 H Respiratory Rate 16 Blood Pressure 125/91 H 114/64 Blood Pressure Mean 102 80 Pulse Ox 90 60 Oxygen Delivery Method Room Air Room Air Oxygen Flow Rate (L/min) 06/10/24 15:26 06/10/24 15:38 06/10/24 16:54 Temperature Temperature Source Pulse Rate Respiratory Rate Blood Pressure 112/76 Blood Pressure Mean 88 Pulse Ox 94 95 Oxygen Delivery Method Nasal Cannula Nasal Cannula Oxygen Flow Rate (L/min) 6 5 Positive well nourished and well developed General Appearance ED: well developed HEENT Reports normocephalic, head/scalp atraumatic and moist mucous membranes Eyes PERRL and EOMs intact bilaterally Neck no lymphadenopathy, supple and no JVD Resp normal respiratory effort and clear to auscultation bilaterally Cardio regular rate, regular rhythm and no murmurs GI GI Narrative: Body habitus precludes full deep palpation of abdomen Inspection: Negative for abdominal distention Auscultation: normoactive bowel sounds Palpation: soft and tender epigastric; Negative for guarding or rebound tenderness present Back/Spine no CVA tenderness and normal ROM Extremity normal to inspection General Extremety ED: Negative for edema General Extremity: Negative for edema Neuro oriented x3 and CN's II-XII intact bilaterally Sensorium / Orientation: alert Motor Exam: strength 5/5 throughout Psych mental status grossly normal Mood Affect: Negative for depressed or tearful Skin no rashes or lesions noted and no wounds Physical Exam Const Vital Signs: 06/10/24 12:27 06/10/24 14:27 06/10/24 15:26 Temperature 98.1 F Temperature Source Temporal Pulse Rate (more content not included)... Normal [facility] Eosinophil percentageOrdered By: Christiano Berry on 06-10-2024 Eosinophils/100 WBC (Bld) 1.6 % 0-5 [facility] Epithelial cells.squamous LM Ql (Urine sed)Ordered By: Christiano Berry on 06-10-2024 Epithelial cells.squamous LM.HPF (Urine sed) [#/Area] 10 /[HPF] 5-10 [facility] Erythrocyte distribution wid th ratioOrdered By: Christiano Berry on 06-10-2024 Erythrocyte distribution width (RBC) [Ratio] 15.1 % High 11.6-14.6 [facility] Erythrocyte distribution wid th standard deviationOrdered By: Christiano Berry on 06-10-2024 Erythrocyte distribution width (RBC) [Entitic vol] 48.4 fL High 35.1-43.9 [facility] Estimation of creatinine eliseo aranceOrdered By: Christiano Berry on 06-10-2024 Estimated Creatinine Clearance Calc 143.73 ml/min 50-250 [facility] GFR/1.73 sq M.predicted dariela g non-blacks MDRD (S/P/Bld) [Vol rate/Area]Ordered By: Christiano Berry on 06-10-2024 Estimated GFR (MDRD) Non-Af Amer 114 >60 [facility] Comment on above: mL/min/1.73m2 CKD-EP I Creatinine Equation (2020) Gallbladderon 06-10-2024 Gallbladder [facility] Imaging Services [address], [place] [address] Gallbladder MR#: [id number] Acct: [id number] Name: JALYN DOZIER CHAVA Rep #: [id number] : 1985 F 39 From: Delisa Lopez nd, MD PCP: Care Physician,No Primary Status: REG ER Study: Gallbladder Date of Exam: 06/10/24 Exam# [id number] Ordering Dr: Christiano Berry DO PROCEDURE: GALLBLADDER 06/10/2024 REASON FOR EXAM: 39-year-old female, PAIN AND CHOLELITHIASIS COMPARISON: Same day CT abdomen pelvis. FINDINGS: Liver: Diffusely echogenic suggesting fatty infiltration. Normal in size measuring 17.4 cm. The bile ducts are within normal limits. The main portal vein is patent with normal direction of flow. Gallbladder: Multiple echogenic gallstones are identified. The gallbladder measures 7.8 cm in length, and the wall measures 5 mm in thickness. No pericholecystic fluid. Negative Fonseca sign reported by the cath lab technologist. Common bile duct: Normal measuring 5 mm. Pancreas: Visualized portions are unremarkable. The tail is obscured by bowel gas. Other: Visualized portions of the right kidney are unremarkable. No right upper quadrant ascites. US/Gallbladder IMPRESSION: 1. Cholelithiasis without evidence of acute cholecystitis. 2. Hepatic steatosis. Reading Location: [facility] CC: Dr. Christiano Berry, DO; No Primary Care Physician Machine Set Up: Signed Normal [facility] Glucose Ql (U)Ordered By: Vidal Berry on 06-10-2024 Urine Glucose (UA) Normal mg/dl Normal [facility] Hematocrit Auto (Bld) [Volum e fraction]Ordered By: Christiano Berry on 06-10-2024 Hematocrit (Bld) [Volume fraction] 47.9 % High 37-47 [facility] Hemoglobin measurementOrdere d By: Christiano Berry on 06-10-2024 Hemoglobin (Bld) [Mass/Vol] 14.9 g/dL 12.0-15.0 [facility] Immature granulocytes/100 WB C Auto (Bld)Ordered By: Christiano Berry on 06-10-2024 Immature granulocytes/100 WBC (Bld) 0.300 % 0.0-0.9 [facility] Comment on above: IG% - Immature Granu locytes (promyelocytes, myelocytes and metamyelocytes) > 1% indicates that a LEFT SHIFT is Present. Ketones Test strip Ql (U)Ord ered By: Christiano Berry on 06-10-2024 Ketones Ql (U) Negative Negative [facility] L501.2276on 06-10-2024 Ionized Calcium 1.16 mmol/L Normal 1.09-1.30 [facility] Comment on above: Performed By: #### L 501.2276 ####[facility] [address] [place], [address] Laboratory - Chemistry and C hemistry - challengeOrdered By: Christiano Berry on 06-10-2024 AST [Catalytic activity/Vol] 19 U/L <32 [facility] Lipaseon 06-10-2024 Lipase [Catalytic activity/Vol] 41 U/L Normal 13-75 [facility] Comment on above: Result Comment: Plea se note: LIPASE revised reference range effective 22. New Lipase methodology. Expected to produce lower values than the previous assay method. NEW Reference Range: 13 - 75 U/L Performed By: #### L 501.2450, L500.3400, L500.2500, L100.0100, L700.6800 ####[facility] [address] [place], [address] Lipase measurementOrdered By : Christiano Berry on 06-10-2024 Lipase [Catalytic activity/Vol] 41 U/L 13-75 [facility] Comment on above: Please note:LIPASE r evised reference range effective 22. New Lipase methodology. Expected to produce lower values than the previous assay method. NEW Reference Range: 13 - 75 U/L Liver Profileon 06-10-2024 Albumin [Mass/Vol] 1.9 g/dL Low 3.5-5.0 [facility] Comment on above: Performed By: #### L 501.2450, L500.3400, L500.2500, L100.0100, L700.6800 ####[facility] [address] [place], [address] ALK PHOS 92 U/L Normal 35-104 [facility] Comment on above: Performed By: #### L 501.2450, L500.3400, L500.2500, L100.0100, L700.6800 ####[facility] [address] [place], [address] ALT [Catalytic activity/Vol] 13 U/L Normal <=34 [facility] Comment on above: Performed By: #### L 501.2450, L500.3400, L500.2500, L100.0100, L700.6800 ####[facility] [address] [place], [address] AST [Catalytic activity/Vol] 19 U/L Normal <=31 [facility] Comment on above: Performed By: #### L 501.2450, L500.3400, L500.2500, L100.0100, L700.6800 ####[facility] [address] [place], [address] Bilirubin [Mass/Vol] 0.38 mg/dL Normal 0.00-1.30 [facility] Comment on above: Performed By: #### L 501.2450, L500.3400, L500.2500, L100.0100, L700.6800 ####[facility] [address] [place], [address] Bilirubin.direct [Mass/Vol] 0.13 mg/dL Normal 0.00-0.30 [facility] Comment on above: Performed By: #### L 501.2450, L500.3400, L500.2500, L100.0100, L700.6800 ####[facility] [address] [place], [address] Globulin (S) [Mass/Vol] 6.4 g/dL High 2.2-4.2 [facility] Comment on above: Performed By: #### L 501.2450, L500.3400, L500.2500, L100.0100, L700.6800 ####[facility] [address] [place], [address] T PROT 8.4 g/dL Normal 5.9-8.4 [facility] Comment on above: Performed By: #### L 501.2450, L500.3400, L500.2500, L100.0100, L700.6800 ####[facility] [address] [place], [address] Lymphocytes Auto (Unsp spec) [#/Vol]Ordered By: Christiano Berry on 06-10-2024 Lymphocytes (Bld) [#/Vol] 1.47 10*3/uL 0.83-4.5 1 [facility] Lymphocytes/100 WBC Auto (Un sp spec)Ordered By: Christiano Berry on 06-10-2024 Lymphocytes/100 WBC (Bld) 20.2 % 19-41 [facility] MCV (mean corpuscular volume ) determinationOrdered By: Christiano Berry on 06-10-2024 MCV (RBC) [Entitic vol] 88.5 fL 81-99 [facility] Mean corpuscular hemoglobin (MCH) determinationOrdered By: Christiano Berry on 06-10-2024 MCH (RBC) [Entitic mass] 27.5 pg 27.0-32.0 [facility] Mean corpuscular hemoglobin concentration (MCHC) determinationOrdered By: Christiano Berry on 06-10-2024 MCHC (RBC) [Mass/Vol] 31.1 g/dL Low 32-36 [facility] Mean platelet volume determi nationOrdered By: Christiano Berry on 06-10-2024 Platelet mean volume (Bld) [Entitic vol] 10.3 fL 6.2-12.0 [facility] Microscopic analysis of urin e for red blood cells (RBC)Ordered By: Christiano Berry on 06-10-2024 Urine RBC 0 SEEN /hpf 0-5 [facility] Monocyte percentageOrdered B y: Christiano Berry on 06-10-2024 Monocytes/100 WBC (Bld) 6.5 % 0-10 [facility] Mucus LM Ql (Urine sed)Order ed By: Christiano Berry on 06-10-2024 Mucus Ql (Urine sed) 1+ /hpf [facility] Neutrophil percentageOrdered By: Christiano Berry on 06-10-2024 Neutrophils/100 WBC (Bld) 70.6 % High 47-70 [facility] Nitrite Test strip Ql (U)Ord ered By: Christiano Berry on 06-10-2024 Nitrite Ql (U) Negative Negative [facility] Nucleated red blood cell per centageOrdered By: Christiano Berry on 06-10-2024 Nucleated RBC/100 WBC (Bld) [Ratio] 0 % 0-5 [facility] Platelet countOrdered By: Vidal Berry on 06-10-2024 Platelets (Bld) [#/Vol] 280 10*3/uL 150-450 [facility] Potassium (Unsp spec) [Mass/ Vol]Ordered By: Christiano Berry on 06-10-2024 Potassium [Moles/Vol] 4.5 mmol/L 3.3-5.1 [facility] ,Serum,hCG Quali.on 06-10-2024 HCG, SERUM QUAL Negative Normal [facility] Comment on above: Performed By: #### L 501.2450, L500.3400, L500.2500, L100.0100, L700.6800 #### [facility] Laboratory [address] [place], [place], [address] Protein Test strip Ql (U)Ord ered By: Christiano Berry on 06-10-2024 Protein Ql (U) 100 mg/dl High Negative [facility] RBC Auto (Bld) [#/Vol]Ordere d By: Christaino Berry on 06-10-2024 RBC (Bld) [#/Vol] 5.41 10*6/uL High 4.2-5.4 [facility] Serum creatinine measurement (mass/volume)Ordered By: Christiano Berry on 06-10-2024 Creatinine [Mass/Vol] 0.68 mg/dL Low 0.70-1.20 [facility] Serum globulin measurementOr dered By: Christiano Berry on 06-10-2024 Globulin (S) [Mass/Vol] 6.4 g/dL High 2.2-4.2 [facility] Serum glucose measurement (m ass/volume)Ordered By: Christiano Berry on 06-10-2024 Glucose [Mass/Vol] 120 mg/dL High 70-99 [facility] Serum or plasma alanine main otransferase (ALT) measurementOrdered By: Christiano Berry on 06-10-2024 ALT [Catalytic activity/Vol] 13 U/L <35 [facility] Serum or plasma albumin donna urement (mass/volume)Ordered By: Christiano Berry on 06-10-2024 Albumin [Mass/Vol] 1.9 g/dL Low 3.5-5.0 [facility] Serum or plasma alkaline bishop sphatase measurementOrdered By: Christiano Berry on 06-10-2024 ALP [Catalytic activity/Vol] 92 U/L 35-104 [facility] Serum or plasma calcium donna urement (mass/volume)Ordered By: Christiano Berry on 06-10-2024 Calcium [Mass/Vol] 6.7 mg/dL Low 7.6-11.0 [facility] Serum or plasma urea nitroge n measurement (mass/volume)Ordered By: Christiano Berry on 06-10-2024 Urea nitrogen [Mass/Vol] 12 mg/dL 4-19 [facility] Sodium levelOrdered By: Sulaiman Berry on 06-10-2024 Sodium [Moles/Vol] 138 mmol/L 133-145 [facility] Total proteinOrdered By: Myke Berry on 06-10-2024 Protein [Mass/Vol] 8.4 g/dL 5.9-8.4 [facility] Urinalysis, Completeon 06-10 Mucus Ql (Urine sed) 1+ /hpf Normal [facility] Comment on above: Order Comment: CLEAN CATCH Performed By: #### L 400.0001 ####[facility] [address] [place], [address] EPI,SQUAMOUS 10-25 SEEN Normal 5-10 [facility] Comment on above: Order Comment: CLEAN CATCH Performed By: #### L 400.0001 ####[facility] [address] [place], [address] RBC 0 SEEN Normal 0-5 [facility] Comment on above: Order Comment: CLEAN CATCH Performed By: #### L 400.0001 ####[facility] [address] [place], [address] WBC 0-5 SEEN Normal 0-5 [facility] Comment on above: Order Comment: CLEAN CATCH Performed By: #### L 400.0001 ####[facility] [address] [place], [address] BACTERIA 0 SEEN Normal None Seen [facility] Comment on above: Order Comment: CLEAN CATCH Performed By: #### L 400.0001 ####[facility] [address] [place], [address] Urine blood detectionOrdered By: Christiano Berry on 06-10-2024 Urine Occult Blood Negative Negative [facility] Urine clarityOrdered By: Myke Berry on 06-10-2024 Clarity (U) Cloudy Clear [facility] Urine color determinationOrd ered By: hCristiano Berry on 06-10-2024 Color (U) Yellow Yellow [facility] Urine leukocyte esterase det ection by dipstickOrdered By: Christiano Berry on 06-10-2024 Leukocyte esterase Test strip Ql (U) 25 /ul High Negative [facility] Urine pHOrdered By: Christiano salinas on 06-10-2024 pH (U) 6.0 [pH] 5.0 - 8.0 [facility] Urine sediment bacteria coun t by microscopy (number/high power field)Ordered By: Christiano Berry on 06-10-2024 Bacteria LM.HPF (Urine sed) [#/Area] 0 /[HPF] None Seen [facility] Urine specific gravity measu rementOrdered By: Christiano Berry on 06-10-2024 Specific gravity (U) [Rel density] 1.015 1.002-1.030 [facility] Urobilinogen Ql (U)Ordered B y: Christiano Berry on 06-10-2024 Urobilinogen (U) [Mass/Vol] 1 mg/dL High Normal [facility] White blood cell (WBC) count Ordered By: Christiano Berry on 06-10-2024 WBC (Bld) [#/Vol] 7.3 10*3/uL 4.4-11.0 [facility] White blood cell countOrdere d By: Christiano Berry on 06-10-2024 Urine WBC 0-5 SEEN /hpf 0-5 [facility] 12 Lead EKGon 05-17-2024 12 Lead EKG [facility] Cardiovascular Services [address] [place] [address] 12 Lead EKG 05/17/24 1621 MR#: [id number] Acct: [id number] Name: JALYN DOZIER Rep #: [id number] : 1985 38 From: Zach Rivera MD Attending Dr: Status: DEP ER Ordering Dr: Pavel Lantigua DO Date: 05/17/24 Location: ED Sex: F AA Admitted: Test Reason : sob Blood Pressure : */* mmHG Vent. Rate : 79 BPM Atrial Rate : 79 BPM P-R Int : 182 ms QRS Dur : 104 ms QT Int : 400 ms P-R-T Axes : 59 122 28 degrees QTcB Int : 458 ms Sinus rhythm with occasional Premature ventricular complexes Right atrial enlargement Right axis deviation Right ventricular hypertrophy Abnormal ECG Confirmed by Zahc Rivera ([id number]), news video editor HAYDEE FARIA ([id number]) on 05/19/2024 7:04:35 AM Referred By: Confirmed By: Zach Rivera 05/19/24 0704 Date Zach Rivera MD CC: Dr. Pavel Lantigua DO; No Primary Care Physician Signed Normal [facility] Absolute neutrophil countOrd ered By: Pavel Lantigua on 05-17-2024 Neutrophils (Bld) [#/Vol] 4.0 10*3/uL 2.0-7.7 [facility] BUN/creatinine ratioOrdered By: Pavel Lantigua on 05-17-2024 Urea nitrogen/Creatinine [Mass ratio] 12.1 mg/mg - [facility] Basic Metabolic Profile (BMP )on 05-17-2024 Anion gap [Moles/Vol] 10 mmol/L Normal - [facility] Comment on above: Performed By: #### L 500.2500, L503.7505, L100.0100 ####[facility] [address] [place], [place], [address] BUN/CRE 12.1 RATIO Normal - [facility] Comment on above: Performed By: #### L 500.2500, L503.7505, L100.0100 ####[facility] [address] [place], [address] Calcium [Mass/Vol] 9.5 mg/dL Normal 7.6-11.0 [facility] Comment on above: Performed By: #### L 500.2500, L503.7505, L100.0100 ####[facility] [address] [place], [address] Chloride [Moles/Vol] 100 mmol/L Normal 96-108 [facility] Comment on above: Performed By: #### L 500.2500, L503.7505, L100.0100 ####[facility] [address] [place], [address] CO2 [Moles/Vol] 30.5 mmol/L High 22.0-29.0 [facility] Comment on above: Performed By: #### L 500.2500, L503.7505, L100.0100 ####[facility] [address] [place], [address] Creatinine [Mass/Vol] 0.61 mg/dL Low 0.70-1.20 [facility] Comment on above: Performed By: #### L 500.2500, L503.7505, L100.0100 ####[facility] [address] [place], [address] ECRCL 162.70 ml/min Normal 50-250 [facility] Comment on above: Performed By: #### L 500.2500, L503.7505, L100.0100 ####[facility] [address] [place], [address] GFR/1.73 sq M.predicted among non-blacks MDRD (S/P/Bld) [Vol rate/Area] 118 mL/min/{1.73_m2} Normal >60 [facility] Comment on above: Result Comment: mL/m in/1.73m2 CKD-EPI Creatinine Equation (2020) Performed By: #### L 500.2500, L503.7505, L100.0100 ####[facility] [address] [place], [address] Glucose [Mass/Vol] 108 mg/dL High 70-99 [facility] Comment on above: Performed By: #### L 500.2500, L503.7505, L100.0100 ####[facility] [address] [place], [address] Potassium [Moles/Vol] 4.2 mmol/L Normal 3.3-5.1 [facility] Comment on above: Performed By: #### L 500.2500, L503.7505, L100.0100 ####[facility] [address] [place], [address] Sodium [Moles/Vol] 141 mmol/L Normal 133-145 [facility] Comment on above: Performed By: #### L 500.2500, L503.7505, L100.0100 ####[facility] [address] [place], [address] Urea nitrogen [Mass/Vol] 7 mg/dL Normal 4-19 [facility] Comment on above: Performed By: #### L 500.2500, L503.7505, L100.0100 ####[facility] [address] [place], [address] Basophil percentageOrdered B y: Pavel Lantigua on 05-17-2024 Basophils/100 WBC (Bld) 1.1 % High 0-1 [facility] CBC W/Diff, Automatedon 03-0 Absolute Lymph 1.49 X10 3/uL Normal 0.83-4.51 [facility] Comment on above: Performed By: #### L 500.2500, L503.7505, L100.0100 ####[facility] [address] [place], [address] Absolute Neut 4.0 X10 3/uL Normal 2.0-7.7 [facility] Comment on above: Performed By: #### L 500.2500, L503.7505, L100.0100 ####[facility] [address] [place], [address] Basophils/100 WBC (Bld) 1.1 % High 0-1 [facility] Comment on above: Performed By: #### L 500.2500, L503.7505, L100.0100 ####[facility] [facility] [address] [place], [address] Eosinophils/100 WBC (Bld) 3.1 % Normal 0-5 [facility] Comment on above: Performed By: #### L 500.2500, L503.7505, L100.0100 ####[facility] [address] [place], [address] Erythrocyte distribution width (RBC) [Ratio] 15.2 % High 11.6-14.6 [facility] Comment on above: Performed By: #### L 500.2500, L503.7505, L100.0100 ####[facility] [address] [place], [address] Hematocrit (Bld) [Volume fraction] 48.9 % High 37-47 [facility] Comment on above: Performed By: #### L 500.2500, L503.7505, L100.0100 ####[facility] [address] [place], [address] Hemoglobin (Bld) [Mass/Vol] 15.2 g/dL High 12.0-15.0 [facility] Comment on above: Performed By: #### L 500.2500, L503.7505, L100.0100 ####[facility] [address] [place], [address] IG% 0.300 Normal 0.0-0.9 [facility] Comment on above: Result Comment: IG% - Immature Granulocytes (promyelocytes, myelocytes and metamyelocytes) > 1% indicates that a LEFT SHIFT is Present. Performed By: #### L 500.2500, L503.7505, L100.0100 ####[facility] [address] [place], [address] Lymphocytes/100 WBC (Bld) 23.4 % Normal 19-41 [facility] Comment on above: Performed By: #### L 500.2500, L503.7505, L100.0100 ####[facility] [address] [place], [address] MCH (RBC) [Entitic mass] 27.5 pg Normal 27.0-32.0 [facility] Comment on above: Performed By: #### L 500.2500, L503.7505, L100.0100 ####[facility] [address] [place], [address] MCHC (RBC) [Mass/Vol] 31.1 g/dL Low 32-36 [facility] Comment on above: Performed By: #### L 500.2500, L503.7505, L100.0100 ####[facility] [address] [place], [address] MCV (RBC) [Entitic vol] 88.4 fL Normal 81-99 [facility] Comment on above: Performed By: #### L 500.2500, L503.7505, L100.0100 ####[facility] [address] [place], [address] Monocytes/100 WBC (Bld) 9.9 % Normal 0-10 [facility] Comment on above: Performed By: #### L 500.2500, L503.7505, L100.0100 ####[facility] [address] [place], [address] Neutrophils/100 WBC (Bld) 62.2 % Normal 47-70 [facility] Comment on above: Performed By: #### L 500.2500, L503.7505, L100.0100 ####[facility] [address] [place], [address] Nucleated RBC (Bld) [#/Vol] 0 10*3/uL Normal 0-5 [facility] Comment on above: Performed By: #### L 500.2500, L503.7505, L100.0100 ####[facility] [address] [place], [address] Platelet mean volume (Bld) [Entitic vol] 11.0 fL Normal 6.2-12.0 [facility] Comment on above: Performed By: #### L 500.2500, L503.7505, L100.0100 ####[facility] [address] [place], [address] Platelets (Bld) [#/Vol] 215 10*3/uL Normal 150-450 [facility] Comment on above: Performed By: #### L 500.2500, L503.7505, L100.0100 ####[facility] [address] [place], [address] RBC (Bld) [#/Vol] 5.53 10*6/uL High 4.2-5.4 [facility] Comment on above: Performed By: #### L 500.2500, L503.7505, L100.0100 ####[facility] [address] [place], [address] RDW SD 49.9 fl High 35.1-43.9 [facility] Comment on above: Performed By: #### L 500.2500, L503.7505, L100.0100 ####[facility] [address] [place], [address] WBC (Bld) [#/Vol] 6.4 10*3/uL Normal 4.4-11.0 [facility] Comment on above: Performed By: #### L 500.2500, L503.7505, L100.0100 ####[facility] [address] [place], [address] Carbon dioxide measurementOr dered By: Pavel Lantigua on 05-17-2024 CO2 [Moles/Vol] 30.5 mmol/L High 22.0-29.0 [facility] Chest PA and Lateralon 05-17 Chest PA and Lateral [facility] Imaging Services [address] [place] [address] Chest PA and Lateral MR#: [id number] Acct: [id number] Name: JALYN DOZIER Rep #: [id number] : 1985 F 38 From: Pablo Nelson MD PCP: Care Physician,No Primary Status: [facility] ER Study: Chest PA and Lateral Date of Exam: 05/17/24 Exam# [id number] Ordering Dr: Pavel Lantigua DO PROCEDURE: CHEST PA AND LATERAL REASON FOR EXAM: Dyspnea TECHNIQUE: Frontal and lateral views of the chest. COMPARISON: None. FINDINGS: Heart size is moderately enlarged. The mediastinal contour is unremarkable. Pulmonary vasculature is congested. The bones are unremarkable. RAD/Chest PA and Lateral IMPRESSION: Moderate cardiomegaly with pulmonary vascular congestion. Reading Location: [facility] CC: Dr. Pavel Lantigua DO; No Primary Care Physician Machine Set Up: Signed Normal [facility] Chloride measurementOrdered By: Pavel Lantigua on 05-17-2024 Chloride [Moles/Vol] 100 mmol/L 96-108 [facility] Emergency Department Summary on 05-17-2024 Emergency Department Summary [facility] Medical Records Department [address] [place] [address] Emergency Department Summary 05/17/24 MR#: [id number] Acct: [id number] Name: JALYN DOZIER Rep #: [id number] : 1985 38 From: Pavel Lantigua DO PCP: Care Physician,No Primary Status:DEP ER Location: ED HPI History of Present Illness Chief Complaint: Shortness of Breath Informant: patient Onset/Context/Marielle mir Onset: Days Context: gradual Timing: Continuous Quality: Positive for Dyspnea on exertion Worsened by: Exertion Relieved by: Nothing Associated Symptoms cough and white sputum; Negative for rhinorrhea, post nasal drip, ear pain, fever, sore throat, chills, sweats, clear sputum, yellow sputum or green sputum Chest Pain: Positive for None Narrative Narrative: Patient presents with shortness of breath that became worse today. Patient has a history of asthma and is chronically on 4 L nasal cannula. Patient states her breathing is worse with any exertion. Patient states nothing makes it better. Patient states she has a cough with occasional white sputum. Patient denies any fevers or chills. Patient denies any chest pain. Patient denies any sore throat or rhinorrhea. Patient states she has occasional back pain. Patient denies any recent travel or recent surgery. [facility] Medical History Asthma Home Medications ???Medication ???Instructions ???Recorded ???Last Taken ???Type hydrochlorothiazide 25 mg tablet 25 mg PO DAILY #30 tabs 05/17/24 U nknown Rx Allergy/AdvReac Type Severity Reaction Status Date / Time No Known Allergies Allergy Verified 05/17/24 14:52 Social History Smoking Status: Current every day smoker tobacco type: cigarettes ROS ROS ED Constitutional Constitutional ED: Denies chills or fever(s) Eyes Eyes: Denies blurry vision or change in vision ENT ENT ED: Denies rhinorrhea or sore throat Cardiovascular Cardiovascular: Denies chest pain or palpitations Respiratory/Chest Respiratory/Chest: Reports cough and dyspnea Gastrointestinal Gastrointestinal: Denies nausea or vomiting Genitourinary Genitourinary ED: Denies dysuria or hematuria Musculoskeletal Musculoskeletal: Reports back pain; Denies neck pain Integumentary Denies abscess or rash Neurologic Neurologic: Denies headache(s) or weakness Allergic/Immunologi c Allergic/Immunologi c ED: Denies mouth swelling or urticaria EXAM Physical Exam Const Vital Signs: 05/17/24 14:52 05/17/24 14:54 05/17/24 14:57 Temperature 98.2 F Temperature Source Oral Pulse Rate 94 Respiratory Rate 16 Respiratory Effort Normal Non-Labored Respiratory Depth Normal Respiratory Pattern Normal Blood Pressure 152/104 H Blood Pressure Mean 120 Pulse Ox 64 93 Oxygen Delivery Method Room Air Nasal Cannula Oxygen Flow Rate (L/min) 4 05/17/24 15:20 05/17/24 15:30 05/17/24 15:45 Temperature Temperature Source Pulse Rate 95 96 92 Respiratory Rate 34 H 28 H 23 H Respiratory Effort Respiratory Depth Respiratory Pattern Blood Pressure Blood Pressure Mean Pulse Ox 94 94 92 Oxygen Delivery Method Oxygen Flow Rate (L/min) 05/17/24 15:48 05/17/24 16:00 05/17/24 16:15 Temperature Temperature Source Pulse Rate 83 83 76 Respiratory Rate 16 24 H 18 Respiratory Effort Respiratory Depth Respiratory Pattern Blood Pressure Blood Pressure Mean Pulse Ox 94 94 Oxygen Delivery Method Oxygen Flow Rate (L/min) 05/17/24 16:30 05/17/24 16:33 05/17/24 16:45 Temperature 98.3 F Temperature Source Oral Pulse Rate 80 85 Respiratory Rate 24 H 16 25 H Respiratory Effort Respiratory Depth Respiratory Pattern Blood Pressure 144/99 H 144/99 H Blood Pressure Mean 113 114 Pulse Ox 92 90 92 Oxygen Delivery Method Nasal Cannula Oxygen Flow Rate (L/min) 3 05/17/24 16:45 05/17/24 17:00 Temperature Temperature Source Pulse Rate 77 Respiratory Rate 18 Respiratory Effort Respiratory Depth Respiratory Pattern Blood Pressure 154/97 H 149/99 H Blood Pressure Mean 113 113 Pulse Ox 94 Oxygen Delivery Method Oxygen Flow Rate (L/min) Positive well nourished and well developed Constitutional Narrative: BMI is 52.0 General Appearance ED: well developed and NAD HEENT Reports moist mucous membranes atraumatic Neck supple, no meningeal signs and no JVD Resp normal respiratory effort Auscultation: wheezes expiratory wheezes and throughout Cardio regular rate and regular rhythm GI non-tender and non-distended Palpation: soft Neuro oriented x3, CN's II-XII intact ronal (more content not included)... Normal [facility] Eosinophil percentageOrdered By: Pavel Lantigua on 05-17-2024 Eosinophils/100 WBC (Bld) 3.1 % 0-5 [facility] Erythrocyte distribution wid th ratioOrdered By: Pavel Lantigua on 05-17-2024 Erythrocyte distribution width (RBC) [Ratio] 15.2 % High 11.6-14.6 [facility] Erythrocyte distribution wid th standard deviationOrdered By: Pavel Lantigua on 05-17-2024 Erythrocyte distribution width (RBC) [Entitic vol] 49.9 fL High 35.1-43.9 [facility] Estimation of creatinine eliseo aranceOrdered By: Pavel Lantigua on 05-17-2024 Estimated Creatinine Clearance Calc 162.70 ml/min 50-250 [facility] GFR/1.73 sq M.predicted dariela g non-blacks MDRD (S/P/Bld) [Vol rate/Area]Ordered By: Pavel Lantigua on 05-17-2024 Estimated GFR (MDRD) Non-Af Amer 118 >60 [facility] Comment on above: mL/min/1.73m2 CKD-EP I Creatinine Equation (2020) Hematocrit Auto (Bld) [Volum e fraction]Ordered By: Pavel Lantigua on 05-17-2024 Hematocrit (Bld) [Volume fraction] 48.9 % High 37-47 [facility] Hemoglobin measurementOrdere d By: Pavel Lantigua on 05-17-2024 Hemoglobin (Bld) [Mass/Vol] 15.2 g/dL High 12.0-15.0 [facility] Immature granulocytes/100 WB C Auto (Bld)Ordered By: Pavel Lantigua on 05-17-2024 Immature granulocytes/100 WBC (Bld) 0.300 % 0.0-0.9 [facility] Comment on above: IG% - Immature Granu locytes (promyelocytes, myelocytes and metamyelocytes) > 1% indicates that a LEFT SHIFT is Present. Influenza virus A and B and SARS-CoV-2 (COVID-19) and Respiratory syncytial virus RNAOrdered By: Pavel Lantigua on 05-17-2024 SARS-CoV-2 (COVID-19) RNA MEENU+probe Ql (Unsp spec) [facility] L503.7505on 05-17-2024 Natriuretic peptide B (Bld) [Mass/Vol] 707 pg/mL High <=450 [facility] Comment on above: Result Comment: Hear t Failure Unlikely: < 300 pg/mL Heart Failure Likely < 50 Years: > 450 pg/mL 50-75 Years: > 900 pg/mL >75 Years: > 1800 pg/mL Performed By: #### L 500.2500, L503.7505, L100.0100 ####[facility] [address] [place], [place], [id number] Laboratory - Chemistry and C hemistry - challengeOrdered By: Pavel Lantigua on 05-17-2024 Natriuretic peptide B (Bld) [Mass/Vol] 707 pg/mL High <450 [facility] Comment on above: Heart Failure Unlike ly: < 300 pg/mLHeart Failure Likely< 50 Years: > 450 pg/mL50-75 Years: > 900 pg/mL>75 Years: > 1800 pg/mL Lymphocytes Auto (Unsp spec) [#/Vol]Ordered By: Pavel Lantigua on 05-17-2024 Lymphocytes (Bld) [#/Vol] 1.49 10*3/uL 0.83-4.5 1 [facility] Lymphocytes/100 WBC Auto (Un sp spec)Ordered By: Pavel Lantigua on 05-17-2024 Lymphocytes/100 WBC (Bld) 23.4 % 19-41 [facility] M100.678on 05-17-2024 M100.678 SARS-CoV-2 (COVID 19) Negative INFLUENZA A Negative INFLUENZA B Negative RSV PCR Negative Normal [facility] Comment on above: Performed By: #### M 100.678 #### [facility] Laboratory [address], [place], [id number] MCV (mean corpuscular volume ) determinationOrdered By: Pavel Lantigua on 05-17-2024 MCV (RBC) [Entitic vol] 88.4 fL 81-99 [facility] Mean corpuscular hemoglobin (MCH) determinationOrdered By: Pavel Lantigua on 05-17-2024 MCH (RBC) [Entitic mass] 27.5 pg 27.0-32.0 [facility] Mean corpuscular hemoglobin concentration (MCHC) determinationOrdered By: Pavel Lantigua on 05-17-2024 MCHC (RBC) [Mass/Vol] 31.1 g/dL Low 32-36 [facility] Mean platelet volume determi nationOrdered By: Pavel Lantigua on 05-17-2024 Platelet mean volume (Bld) [Entitic vol] 11.0 fL 6.2-12.0 [facility] Monocyte percentageOrdered B y: Pavel Lantigua on 05-17-2024 Monocytes/100 WBC (Bld) 9.9 % 0-10 [facility] Neutrophil percentageOrdered By: Pavel Lantigua on 05-17-2024 Neutrophils/100 WBC (Bld) 62.2 % 47-70 [facility] Nucleated red blood cell per centageOrdered By: Pavel Lantigua on 05-17-2024 Nucleated RBC/100 WBC (Bld) [Ratio] 0 % 0-5 [facility] Platelet countOrdered By: Teddy Lantigua on 05-17-2024 Platelets (Bld) [#/Vol] 215 10*3/uL 150-450 [facility] RBC Auto (Bld) [#/Vol]Ordere d By: Pavel Lantigua on 05-17-2024 RBC (Bld) [#/Vol] 5.53 10*6/uL High 4.2-5.4 [facility] Serum creatinine measurement (mass/volume)Ordered By: Pavel Lantigua on 05-17-2024 Creatinine [Mass/Vol] 0.61 mg/dL Low 0.70-1.20 [facility] Serum glucose measurement (m ass/volume)Ordered By: Pavel Lantigua on 05-17-2024 Glucose [Mass/Vol] 108 mg/dL High 70-99 [facility] Serum or plasma anion gap de termination (moles/volume)Ordered By: Pavel Lantigua on 05-17-2024 Anion gap [Moles/Vol] 10 mmol/L 5-15 [facility] Serum or plasma calcium donna urement (mass/volume)Ordered By: Pavel Lantigua on 05-17-2024 Calcium [Mass/Vol] 9.5 mg/dL 7.6-11.0 [facility] Serum or plasma potassium me asurementOrdered By: Pavel Lantigua on 03-01-2025 Potassium [Moles/Vol] 4.2 mmol/L 3.3-5.1 [facility] Serum or plasma sodium measu rement (moles/volume)Ordered By: Pavel Lantigua on 05-17-2024 Sodium [Moles/Vol] 141 mmol/L 133-145 [facility] Serum or plasma urea nitroge n measurement (mass/volume)Ordered By: Pavel Lantigua on 05-17-2024 Urea nitrogen [Mass/Vol] 7 mg/dL 4-19 [facility] White blood cell (WBC) count Ordered By: Pavel Lantigua on 05-17-2024 WBC (Bld) [#/Vol] 6.4 10*3/uL 4.4-11.0 [facility] Vital Signs Date Time Vital Sign Value Performing Clinician Femi prince 10-14-2024 18:57-0400 Body temperature 98.1 [degF] No Primary Care Physician [facility] 10-14-2024 18:57-0400 Diastolic blood pressure 89 mm[Hg] No Primary Care Physician [facility] 10-14-2024 18:57-0400 Heart rate 81 /min No Primary Care Physician [facility] 10-14-2024 18:57-0400 Respiratory rate 18 /min No Primary Care Physician [facility] 10-14-2024 18:57-0400 SaO2% (BldA) [Mass fraction] 99 % No Primary Care Physician [facility] 10-14-2024 18:57-0400 Systolic blood pressure 131 mm[Hg] No Primary Care Physician [facility] 10-14-2024 17:00-0400 Inhaled oxygen flow rate 2 L/min No Primary Care Physician [facility] 10-14-2024 13:36-0400 Body height 157.48 cm No Primary Care Physician [facility] 10-14-2024 13:36-0400 Body mass index (BMI) [Ratio] 48.2 kg/m2 No Primary Care Physician [facility] 10-14-2024 13:36-0400 Body weight 119.61 kg No Primary Care Physician [facility] 06-10-2024 17:36-0400 Body temperature 98.1 [degF] Dr. Pavel Lantigua DO Work Phone: 1(417)856-804125 [place] [address] 06-10-2024 17:36-0400 Diastolic blood pressure 63 mm[Hg] Dr. Pavel Lantigua DO Work Phone: 7(510)457-804325 [place] [address] 06-10-2024 17:36-0400 Heart rate 78 /min Dr. Pavel Lantigua DO Work Phone: 2(329)861-238134 [place] [address] 06-10-2024 17:36-0400 Respiratory rate 16 /min Dr. Pavel Lantigua DO Work Phone: 8(387)421-975334 [place] [address] 06-10-2024 17:36-0400 SaO2% (BldA) [Mass fraction] 94 % Dr. Pavel Lantigua DO Work Phone: 5(632)011-479234 [place] [address] 06-10-2024 17:36-0400 Systolic blood pressure 98 mm[Hg] Dr. Pavel Lantigua DO Work Phone: 7(940)155-366734 [place] [address] 06-10-2024 15:38-0400 Inhaled oxygen flow rate 5 L/min Dr. Pavel Lantigua DO Work Phone: 6(566)431-815134 [place] [address] 06-10-2024 12:27-0400 Body height 157.[address] Pavel Lantigua DO Work Phone: 8(266)482-249834 [place] [address] 06-10-2024 12:27-0400 Body mass index (BMI) [Ratio] 51.5 kg/m2 Dr. Pavel Lantigua DO Work Phone: 9(927)409-279625 [place] [address] 06-10-2024 12:27-0400 Body weight 127.[address] Pavel Lantigua DO Work Phone: 6(859)836-754334 [place] [address] 05-17-2024 18:13-0500 Body temperature 97.4 [degF] Dr. Pavel Lantigua DO Work Phone: 8(885)[phone] [place] [address] 05-17-2024 18:13-0500 Diastolic blood pressure 100 mm[Hg] Dr. Pavel Lantigua DO Work Phone: 0(111)884-859925 [place] [address] 05-17-2024 18:13-0500 Heart rate 88 /min Dr. Pavel Lantigua DO Work Phone: [facility] 05-17-2024 18:13-0500 Respiratory rate 24 /min Dr. Pavel Lantigua DO Work Phone: [facility] 05-17-2024 18:13-0500 SaO2% (BldA) [Mass fraction] 94 % Dr. Pavel Lantigua DO Work Phone: [facility] 05-17-2024 18:13-0500 Systolic blood pressure 150 mm[Hg] Dr. Pavel Lantigua DO Work Phone: [facility] 05-17-2024 16:45-0500 Inhaled oxygen flow rate 3 L/min Dr. Pavel Lantigua DO Work Phone: [facility] 05-17-2024 14:54-0500 Body mass index (BMI) [Ratio] 52 kg/m2 Dr. Pavel Lantigua DO Work Phone: [facility] 05-17-2024 14:54-0500 Body weight 128.[address] Pavel Lantigua DO Work Phone: [facility] Encounters Encounter Date Encounter Type Care Provider Facility Start: 10-14-2024 End: 10-14-2024 Emergency department patient visit No Primary Care Physician -Emergency Department Work Phone: Start: 06-10-2024 End: 06-10-2024 Emergency department patient visit Dr. Pavel Lantigua DO Work Phone: -Emergency Department Work Phone: Start: 05-17-2024 End: 05-17-2024 Emergency department patient visit Dr. Pavel Lantigua DO -Emergency Department Work Phone: Procedures Date Procedure Procedure Detail Performing Clinician Start: 10-14-2024 US scan of gallbladder No Primary Care Physician Start: 10-14-2024 Urnls dip stick/tabl et reagent auto microscopy No Primary Care Physician Start: 10-14-2024 Computed tomography of abdomen and pelvis with intravenous contrast No Primary Care Physician Start: 10-14-2024 Estimated creatinine clearance No Primary Care Physician Start: 06-10-2024 US scan of gallbladder Dr. Pavel Lantigua DO Work Phone: Start: 06-10-2024 Computed tomography of abdomen and pelvis with intravenous contrast Dr. Pavel Lantigua DO Work Phone: Start: 05-17-2024 X-ray of chest, PA a nd lateral views Dr. Pavel Lantigua DO Work Phone: Start: 05-17-2024 SARS-CoV-2, Influenz a & RSV (PCR) Dr. Pavel Lantigua DO Work Phone: Plan of Treatment Date Care Activity Detail Author Start: 10-14-2024 [facility] Start: 10-14-2024 [facility] Start: 10-14-2024 Bacteria identified in Urine by Culture Urine Culture [facility] Start: 05-17-2024 [facility] Patient Education [facility] Work Phone: Patient referral [facility] Work Phone: Urine culture [facility] Payers Date Payer Category Payer Self-pay 2024 Unknown [id number] Unknown [id number] Unknown [id number] Social History Date Type Detail Facility Start: 06-10-2024 End: 10-14-2024 Tobacco smoking status NCIS Smokes tobacco daily (finding) [facility] Start: 06-10-2024 Sex Female (finding) [facility] Start: 1985 Sex Assigned At Female [facility] Radiology Diagnostic study note 10-14-2024 Note Date & Type Note Facility 10-14-2024 Radiology Diagnostic study note [facility] Imaging Services [address] [place], [place] [address] Gallbladder MR#: [id number] Acct: [id number] Name: JALYN DOZIER #: [id number] : 1985 F 39 From: Edmund Ferreira MD PCP: Care Physician,No Primary Status: REG ER Study:Gallbladder Date of Exam: 10/14/24 Exam# [id number] Ordering Dr: Claudia Dugan DO PROCEDURE: RIGHT UPPER QUADRANT ABDOMINAL ULTRASOUND 10/14/2024 REASON FOR EXAM: ELEVATED BILIRUBIN, FEVER, ABD PAIN COMPARISON: Abdominal CT from same day. FINDINGS: Liver: Grossly normal in size with homogeneous parenchymal echotexture. Gallbladder: Gallbladder is contracted around multiple small stones and echogenic sludge material. Gallbladder wall thickening can not be accurately assessed. There is no pericholecystic fluid. No biliary ductal dilatation. No sonographic Fonseca's sign was elicited on this exam. Common bile duct: Normal in caliber measuring up to 0.3 cm in diameter. Pancreas: Visualized portions are sonographically unremarkable. Other: Visualized right kidney is unremarkable. No right upper quadrant ascites. US/Gallbladder IMPRESSION: Cholelithiasis. Gallbladder is contracted around multiple small stones and sludge. No definitive evidence for acute cholecystitis. If there is persistent clinical concern, suggest HIDA scan. Reading Location: [facility] CC: Dr. Vika Dugan DO; No Primary Care Physician ~ Machine Set Up: Signed [facility] Radiology Diagnostic study note 10-14-2024 Note Date & Type Note Facility 10-14-2024 Radiology Diagnostic study note [facility] Imaging Services [address] [place] [address] Abdomen/Pelvis W IV Cont ONLY MR#: [id number] Acct: [id number] Name: JALYN DOZIER CHAVA Rep #: [id number] : 1985 F 39 From: Edmund Ferreira MD PCP: Care Physician,No Primary Status: REG ER Study:Abdomen/Pelvis W IV Cont ONLY Date of E xam: 10/14/24 Exam# [id number] Ordering Dr: Claudia Dugan DO PROCEDURE: ABDOMEN/PELVIS W IV CONT ONLY 10/14/2024 REASON FOR EXAM: LLQ ABD PAIN, FEVER TECHNIQUE: ABDOMEN/PELVIS W IV CONT ONLY Coronal and Sagittal reconstruction series were provided. CONTRAST: Isovue 370 VOLUME: 100 mL One or more dose reduction techniques were used (e.g., Automated exposure control, adjustment of the mA and/or kV according to patient size, use of iterative reconstruction technique. RADIATION DOSE SUMMARY: DLP: 1206.41 mGycm COMPARISON: Abdominal CT 06/10/2024. FINDINGS: Lung bases: No basilar consolidation or pleural effusion. Patchy ground-glass mosaic attenuation reflective of air trapping, which can be seen with small airways disease. Liver: No significant abnormality. Gallbladder: Cholelithiasis. No findings of acute cholecystitis. No biliary ductal dilatation. Spleen: Normal in size and morphology. Pancreas: Within normal limits. Adrenals: Unremarkable. Kidneys: Normal in size with symmetric enhancement. No urolithiasis or hydroureteronephrosis. Prominent left periureteric and perinephric fat stranding with subtle patchy areas of cortical hypoattenuation involving the left kidney, consistent with ascending UTI with ureteritis and pyelonephritis. No definite findings of pyelonephritis are appreciated involving the right kidney. Bladder: Underdistended but there is circumferential wall thickening and pericystic inflammatory fat stranding compatible with cystitis. No bladder calculus is seen. Reproductive Organs: Normal appearance of the uterus and adnexae. Bowel: Unremarkable. No evidence of bowel obstruction or active inflammatory process. The appendix is not definitively identified but there are no pericecal inflammatory changes. Lymph nodes: No suspicious lymph node enlargement. Vasculature: The abdominal aorta and IVC are normal. Peritoneum / Retroperitoneum: No ascites or free air. Bones: No significant abnormality. CT/Abdomen/Pelvis W IV Cont ONLY IMPRESSION: 1. Cystitis with left ureteritis and pyelonephritis. 2. Cholelithiasis, without evidence for acute cholecystitis. Reading Location: [id number] CC: Dr. Vika Dugan DO; No Primary Care Physician ~ Machine Set Up: Signed [facility] Radiology Diagnostic study note 06-10-2024 Note Date & Type Note Facility 06-10-2024 Radiology Diagnostic study note [facility] Imaging Services [address] [place] [address] Gallbladder MR#: [id number] Acct: [id number] Name: JALYN DOZIER CHAVA Rep #: [id number] : 1985 F 39 From: Teresa Hobson MD PCP: Care Physician,No Primary Status: REG ER Study:Gallbladder Date of Exam: 06/10/24 Exam# [id number] Ordering Dr: Katelynn Berry DO PROCEDURE: GALLBLADDER 06/10/2024 REASON FOR EXAM: 39-year-old female, PAIN AND CHOLELITHIASIS COMPARISON: Same day CT abdomen pelvis. FINDINGS: Liver: Diffusely echogenic suggesting fatty infiltration. Normal in size measuring 17.4 cm. The bile ducts are within normal limits. The main portal vein is patent with normal direction of flow. Gallbladder: Multiple echogenic gallstones are identified. The gallbladder measures 7.8 cm in length, and the wall measures 5 mm in thickness. No pericholecystic fluid. Negative Fonseca sign reported by the cath lab technologist. Common bile duct: Normal measuring 5 mm. Pancreas: Visualized portions are unremarkable. The tail is obscured by bowel gas. Other: Visualized portions of the right kidney are unremarkable. No right upperquadrant ascites. US/Gallbladder IMPRESSION: 1. Cholelithiasis without evidence of acute cholecystitis. 2. Hepatic steatosis. Reading Location: [facility] CC: Dr. Christiano Berry DO; No Primary Care Physician ~ Machine Set Up: Signed [facility] Radiology Diagnostic study note 06-10-2024 Note Date & Type Note Facility 06-10-2024 Radiology Diagnostic study note [facility] Imaging Services [address] [place] [address] Abdomen/Pelvis W IV Cont ONLY MR#: [id number] Acct: [id number] Name: JACOBYSOURAVJALYN CHAVA Rep #: [id number] : 1985 F 39 From: Tierney Solomon MD PCP: Care Physician,No Primary Status: REG ER Study:Abdomen/Pelvis W IV Cont ONLY Date of E xam: 06/10/24 Exam# [id number] Ordering Dr: Katelynn Berry DO EXAM: CT Abdomen, Pelvis and Lumbar Spine With Intravenous Contrast CLINICAL INDICATION: ABDOMINAL PAIN TECHNIQUE: Axial computed tomography images of the abdomen, pelvis and lumbar spine with intravenous contrast. This CT exam was performed using one or more of the following dose reduction techniques: automated exposure control, adjustment of the mA and/or kV according to patient size, and/or use of iterative reconstruction technique. COMPARISON: No relevant prior studies available. FINDINGS: LUNG BASES: Unremarkable. No mass. No consolidation. ABDOMEN: LIVER: Hepatomegaly with fatty infiltration. GALLBLADDER AND BILE DUCTS: Cholelithiasis. No ductal dilation. PANCREAS: Unremarkable. No mass. No ductal dilation. SPLEEN: Unremarkable. No splenomegaly. ADRENALS: Unremarkable. No mass. KIDNEYS AND URETERS: Unremarkable. No stones within either kidney. No hydronephrosis. STOMACH AND BOWEL: Anterior ventral hernia of the lower mid abdomen. No bowel obstruction. No mucosal thickening. PELVIS: APPENDIX: Normal appendix. BLADDER: Unremarkable. No mass. REPRODUCTIVE: Unremarkable as visualized. LUMBAR SPINE: VERTEBRAE: Unremarkable. No acute fracture. DISCS/SPINAL CANAL/NEURAL FORAMINA: No acute findings. No significant spinal canal stenosis. ABDOMEN and PELVIS: INTRAPERITONEAL SPACE: Unremarkable. No free air. No significant fluid collection. BONES/JOINTS: No acute fracture. No dislocation. SOFT TISSUES: See above. VASCULATURE: Unremarkable. No abdominal aortic aneurysm. LYMPH NODES: Unremarkable. No enlarged lymph nodes. CT/Abdomen/Pelvis W IV Cont ONLY IMPRESSION: 1. Normal appendix. 2. Anterior ventral hernia of the lower mid abdomen. No bowel obstruction. 3. Hepatomegaly with fatty infiltration. 4. Cholelithiasis. 5. No obstructive uropathy. Reading [facility] CC: Dr. Christiano Berry DO; No Primary Care Physician ~ Machine Set Up: Signed [facility] Evaluation note Note Date & Type Note Facility Evaluation note No assessment information availa ble [facility] Work Phone: Hospital Discharge instructions Note Date & Type Note Facility Hospital Discharge instructions Additional Instructions Return back to the ED if symptoms change or worsen. [facility] Work Phone: Hospital Discharge instructions Note Date & Type Note Facility Hospital Discharge instructions Additional Instructions You have evidence of gallstones. If you have worsening pain in your right upper quadrant, worsening vomiting or any sort of yellow discoloration to your eyes please meetly return to the emergency room. In addition you do have findings consistent with a kidney infection to your left kidney as well as your bladder. You have been put on antibiotics for this. If you are not feeling better after 48 hours or continue to have fevers or severe pain please return to the emergency room. We did discuss admission today but this time would like to try outpatient treatment. It is important that you finish your entire course of antibiotics. You may give a referral for a primary care doctor through [facility] try to get you in sooner ([facility]) as well as for a lung doctor and general surgeon (to follow-up with for your gallstones). Please call his places tomorrow to arrange for close outpatient follow-up [facility] Work Phone: Reason for referral (narrative) Note Date & Type Note Facility Reason for referral (narrative) No reason for referral information available [facility] Work Phone: Chief Complaint and Reason for Visit Chief Complaint Admit Date sob May 17, 2024 2:50 pm NAUSEA June 10, 2024 12: 27pm Chief Complaint Admit Date ABD PAIN October 14, 2024 1:35 pm Advance Directives Advance Directive Response Recorded Date/ Time Living Will No June 10, 2024 12:45pm Do you have a Healthcare Power of Warehouse Handler? No June 10, 2024 12:45pm Living Will No May 17, 2024 3:53pm Do you have a Healthcare Power of Warehouse Handler? No May 17, 2024 3:53pm Advance Directive Response Recorded Date/ Time Do you have a Healthcare Power of Warehouse Handler? No October 14, 2024 1:52pm Summary Purpose Family History No Family History Records Found Additional Source Comments Care Teams (unrecognized sec tion and content) Team Status: Active Member Role Status Dates No Primary Care Physician Primary Care Provider Active Team Status: Inactive Member Role Status Dates Dr. Pavel Lantigua , DO Attending Provider Active Start: May 17, 2024 End: May 17, 2024 Dr. Pavel Lantigua , DO Emergency Provider Active Start: May 17, 2024 End: May 17, 2024 No Primary Care Physician Primary Care Provider Active Start: May 17, 2024 End: May 17, 2024 Team Status: Inactive Member Role Status Dates No Primary Care Physician Primary Care Provider Active Start: June 10, 2024 End: June 10, 2024 Dr. Christiano Berry , Emergency Provider Active Start: June 10, 2024 End: June 10, 2024 Team Status: Active Member Role/Relationship Status Dates No Primary Care Physician Primary Care Provider Active Team Status: Inactive Member Role/Relationship Status Dates No Primary Care Physician Primary Care Provider Active Start: October 14, 2024 End: October 14, 2024 Dr. Vika Dugan , Emergency Provider Active Start: October 14, 2024 End: October 14, 2024 Goals (unrecognized section and content) Goals may be documented in a n alternate sectionGoals may be documented in an alternate section INFORMATION SOURCE (unrecogn ized section and content) DATE CREATED AUTHOR 06/17/2024 [facility] FOR RECORDS PERTAINING TO PATIENTS WHO ARE OR HAVE BEEN ENROLLED IN A CHEMICAL DEPENDENCY/SUBSTANCEABUSE PROGRAM, SOME INFORMATION MAY BE OMITTED. This clinical summary was aggregated from multiple sources. Caution should be exercised in using it in the provision of clinical care. This summary normalizes information from multiple sources, and as a consequence, information in this document may materially change the coding, format and clinical context of patient data. In addition, data may be omitted in some cases. CLINICAL DECISIONS SHOULD BE BASED ON THE PRIMARY CLINICAL RECORDS. [employer] provides no warranty or guarantee of the accuracy or completeness of information in this document.
[2024-10-15 23:50] LABS: Magnesium 1.9 mg/dL (1.5-2.2)
[2024-10-16] VITALS (9 sets, daily range): BP systolic 122–154; BP diastolic 76–103; PULSE 80–102; RESP 18; TEMP 36.9–37.7; O2SAT 94–97; BMI 48.2
[2024-10-16 00:24] LABS: Barbiturate Urine NEGATIVE (< 200 ng/mL); Benzodiazepine Urine NEGATIVE (< 200 ng/mL); PCP Urine NEGATIVE (< 25 ng/mL); THC Urine PRESUMPTIVE POSITIVE (< 50 ng/mL)
[2024-10-16] MEDS: 0.9% Saline Lock 10 ML Syringe IV ×2 (00:34→22:32)
[2024-10-16] MEDS: 0.9% Normal Saline (1000mL) 1,000 ML 125 ML IV ×2 (00:37→13:44)
[2024-10-16] MEDS: Pantoprazole Sodium 40 MG in 0.9% Normal Saline (100mL MB+) 100 ML 330 MG IV ×2 (00:37→11:46)
[2024-10-16 00:42] LABS: Alcohol, Blood (Medical)-Serum < 10.1 mg/dL (<=10.0)
[2024-10-16 06:36] LABS: Hematocrit 44.3 % (37-47); Hemoglobin 14.5 g/dL (12.0-15.0); Immature Granulocytes Count 0.050 X10^3/uL (0.0-0.0); Mean Corp Hgb Conc 32.7 g/dL (32-36); Mean Corpuscular Volume 84.2 fL (81-99); Mean Platelet Vol. 10.7 fl (6.2-12.0); NRBC Flagged by Analyzer 0 % (0-5); Platelet Count 155 K/mm3 (150-450); RBC Distribution Width CV 15.5 % (11.6-14.6); RBC Distribution Width SD 47.6 fl (35.1-43.9); Red Blood Count 5.26 M/mm3 (4.2-5.4); White Blood Count 11.7 K/mm3 (4.4-11.0)
[2024-10-16 07:01] LABS: AST(SGOT) 16 U/L (<=31); Alanine Aminotransfer ALT/SGPT 15 U/L (<=34); Albumin, Serum 2.8 g/dL (3.5-5.0); Alkaline Phosphatase 109 U/L (35-104); Anion Gap 12 (5-15); BUN 12 mg/dL (4-19); BUN/Creat Ratio 12.3 RATIO (10-20); Calcium,Total 8.4 mg/dL (7.6-11.0); Carbon Dioxide 25.3 mmol/L (21.0-32.0); Chloride 100 mmol/L (98-108); Cholesterol 113 mg/dL (<=200); Estimated Creatinine Clearance 94.70 ml/min (50-250); Globulin 4.4 g/dL (2.2-4.2); Glucose 97 mg/dL (70-99); Low Density Lipoprotein Calc. 68 mg/dL; Potassium 3.8 mmol/L (3.3-5.1); Triglycerides 111 mg/dL; Very Low Density Lipoprotein 22 mg/dL (5-40); cholesterol:hdl ratio screen 4.96
[2024-10-16 07:25] LABS: Free T3 1.2 pg/mL (2.18-3.98)
--- NOTE | 2024-10-16 10:00 | NM_ITS ---
PROCEDURE: HEPATOBILLIARY IMAGING 10/16/2024 REASON FOR EXAM: BILIARY COLIC WITH HYPERBILIRUBINEMIA.NO CCK TECHNIQUE: Intravenous Choletec with planar imaging of the abdomen. RADIOPHARMACEUTICAL: Intravenous administration of 5.8 mCi technetium 99 M mebrofenin. COMPARISON: Ultrasound of 10/14/2024. FINDINGS: There is somewhat delayed hepatic uptake and excretion noted.. Normal gallbladder visualization with the gallbladder identified by 28 minutes. Small bowel activity is seen by the 20 minute film. NM/Hepatobilliary Imaging IMPRESSION: 1. Findings concerning for hepatocellular disease, possibly even hepatitis. Re commend clinical and laboratory correlation. 2. No findings of cholecystitis. Reading Location: [place] [address]
--- NOTE | 2024-10-16 10:43 | CASEMGMT ---
RN CM NOTE: RN CM to room to complete initial RN CM assessment. Pt out of room at this time. RN CM to complete at a later time. Elif BSN RN CM
--- NOTE | 2024-10-16 11:53 | PN_ITS ---
Subjective Subjective Patient seen and examined. She has no active complaints now. Abdominal pain is better and she says she feels much better. She denies any fever or chills, nausea or vomiting or any urinary symptoms. Review of systems otherwise negative. She has remained hemodynamically stable. Objective Data Objective Data Vital Signs: Vital Signs Temp Pulse Resp BP Pulse Ox O2 Del Method O2 Flow Rate 99.4 F H 96 18 140/83 H 94 Nasal Cannula 2 10/16/24 08:05 10/16/24 08:05 10/16/24 08:05 10/16/24 08:05 10/16/24 08:05 10/16/24 08:15 10/16/24 08:15 Oxygen Flow Rate (L/min) 2 Oxygen Delivery Method Nasal Cannula Weight: 263 lb 7.238 oz Body Mass Index (BMI) 48.2 Intake & Output: Intake and Output for Last 24 Hours 10/14/24 10/15/24 10/16/24 23:59 23:59 23:59 Intake Total 1150 / 1150 850 / 850 Balance 1150 / 1150 850 / 850 Lab / Micro Data 10/16/24 05:59 10/16/24 05:59 Labs: Laboratory Results - last 24 hr 10/15/24 18:35: WBC 13.6 H, RBC 5.78 H, Hgb 15.8 H, Hct 48.3 H, MCV 83.6, MCH 27.3, MCHC 32.7, RDW Std Deviation 46.5 H, RDW Coeff of Dieudonne 15.4 H, Plt Count 154, MPV 12.1 H, Immature Gran % (Auto) 0.400, Neut % (Auto) 79.5 H, Lymph % (Auto) 8.2 L, Beadle % (Auto) 11.3 H, Eos % (Auto) 0.1, Baso % (Auto) 0.5, A bsolute Neuts (auto) 10.8 H, Absolute Lymphs (auto) 1.12, Nucleated RBC % 0, Differential Comment SCANNED, PT 15.1 H, INR 1.2, APTT 35.2, Sodium 137, Potassium 4.2, Chloride 95 L, Carbon Dioxide 26.6, Anion Gap 16 H, BUN 10, Creatinine 0.95, Estim Creat Clear Calc 99.05, Est GFR (MDRD) Non-Af 79, BUN/Creatinine Ratio 10.5, Glucose 94, Hemoglobin A1c 5.9 H, Calcium 9.0, Magnesium 1.9, Total Bilirubin 3.14 H, AST 25, ALT 18, Alkaline Phosphatase 140 H, Total Protein 8.1, Albumin 3.3 L, Globulin 4.8 H, Albumin/Globulin Ratio 0.7 L, TSH 0.228 L, Ethyl Alcohol < 10.1 10/15/24 19:22: Urine Color Kay, Urine Clarity Sl. Cloudy, Urine pH 6.0, Ur Specific Whigham 1.010, Urine Protein 100 H, Urine Glucose (UA) Normal, Urine Ketones 5 H, Urine Occult Blood 250 H, Urine Nitrite Positive H, Urine Bilirubin 3 H, Urine Urobilinogen 12 H, Ur Leukocyte Esterase 100 H, Urine RBC 0-5 SEEN, Urine WBC 5-10 SEEN, Ur Squamous Epith Cells 0-5 SEEN, Urine Bacteria 2+, Urine Mucus 0 SEEN, Urine Opiates Screen NEGATIVE, U Buprenorphine Qual NEGATIVE, Ur Oxycodone Screen NEGATIVE, Urine Methadone Screen NEGATIVE, Urine Fentanyl Screen NEGATIVE, Ur Barbiturates Screen NEGATIVE, Ur Phencyclidine Scrn NEGATIVE, Ur Amphetamines Screen NEGATIVE, U Benzodiazepines Scrn NEGATIVE, Urine Cocaine Screen NEGATIVE, U Cannabinoids Screen PRESUMPTIVE POSITIVE 10/15/24 20:14: Lactic Acid < 1.0 10/16/24 05:59: WBC 11.7 H, RBC 5.26, Hgb 14.5, Hct 44.3, MCV 84.2, MCH 27.6, MCHC 32.7, RDW Std Deviation 47.6 H, RDW Coeff of Dieudonne 15.5 H, Plt Count 155, MPV 10.7, Immature Gran % (Auto) 0.400, Neut % (Auto) 81.0 H, Lymph % (Auto) 7.0 L, Beadle % (Auto) 10.6 H, Eos % (Auto) 0.4, Baso % (Auto) 0.6, Absolute Neuts (auto) 9.5 H, Absolute Lymphs (auto) 0.82 L, Nucleated RBC % 0, Sodium 138, Potassium 3.8, Chloride 100, Carbon Dioxide 25.3, Anion Gap 12, BUN 12, Creatinine 0.99, Estim Creat Clear Calc 94.70, Est GFR (MDRD) Non-Af 75, BUN/Creatinine Ratio 12.3, Glucose 97, Calcium 8.4, Phosphorus 3.3, Total Bilirubin 2.33 H, AST 16, ALT 15, Alkaline Phosphatase 109 H, Total Protein 7.1, Albumin 2.8 L, Globulin 4.4 H, Albumin/Globulin Ratio 0.6 L, Triglycerides 111, Cholesterol 113, LDL Cholesterol, Calc 68, VLDL Cholesterol 22, HDL Cholesterol 23 L, Cholesterol/HDL Ratio 4.96, Free T4 0.90, Free T3 pg/dL 1.2 L Micro: Microbiology 10/15/24 19:22 Urine, Clean Catch Urine Culture - Preliminary Culture exhibits no growth. Radiography Diagnostic Testing: Radiology Impression Chest X-Ray 10/15/24 20:30 IMPRESSION: Cardiomegaly. No appreciable focal consolidation or sizable pleural effusion. Reading Location: [facility] Hepatobiliary Scan Nuclear Medicine 10/16/24 10:00 IMPRESSION: 1. Findings concerning for hepatocellular disease, possibly even hepatitis. Recommend clinical and laboratory correlation. 2. No findings of cholecystitis. Reading Location: [place] [address] Physical Exam Const alert, oriented x3 and no apparent distress Constitutional Narrative: Class III obesity General Appearance: cooperative HEENT normocephalic, head/scalp atraumatic, moist oral mucous membranes and oropharynx normal Eyes PERRL and EOMs intact bilaterally Neck no lymphadenopathy and supple Lymph Lymphatic: no lymphedema noted Resp normal respiratory effort, normal air movement and clear to auscultation bilaterally Cardio regular rate, regular rhythm, S1 normal heart sound, S2 normal heart sound and no murmurs GI normal to inspection, nondistended, normoactive bowel sounds, soft to palpation, non-tender and non-distended Extremity normal capillary refill, no clubbing, cyanosis or edema and no calf tenderness General Extremity: no tenderness to palpation of joints or extremities Skin General Skin Exam: no breakdown Neuro CN's II-XII intact bilaterally, no focal motor deficits, no sensory deficits noted and deep tendon reflexes 2+ bilaterally Motor Exam: strength 5/5 throughout and general weakness Psych thought process normal and cooperative Appearance: appropriate Assessment & Plan Assessment/Plan (1) Recurrent biliary colic: (2) Hyperbilirubinemia: (3) Pyelonephritis: (4) Ureteritis due to infection: PLAN: Plan #UTI * Patient feeling much better. Urine cultures pending. WBC was 13.6 and is trending downwards. On IV ceftriaxone. Urine cultures pending. #Hyperbilirubinemia in the setting of chronic gallstones with biliary colic * Total bilirubin is trending downwards. Patient is feeling better. For HIDA scan today. * total bilirubin is down to 2.33 from 3.14 yesterday. * #Class III obesity: BMI is 48.5. Complicates acute care, expected recovery and prognosis. #Abnormal thyroid function: TSH is low but T4 is normal although T3 is also low. Recommend patient follows up with a PCP to repeat this or outpatient basis and if it still low then will need further workup. #Anxiety: On benzodiazepines as needed #Chronic respiratory failure: On 2 L of oxygen. She still smokes in bed respiratory failure is due to COPD and asthma though class III obesity may also be playing a role. #Nicotine dependence: Counseled to quit. Nicotine patch as needed DVT prophylaxis: Lovenox 40mg twice daily Charges/Coding Visit Charges Inpatient E&M: 56569 Subs Hosp L2
--- NOTE | 2024-10-16 12:00 | CASEMGMT ---
RN?CM?ASSESSMENT ? RN?CM?to room to meet with patient for initial transition planning/care coordination?assessment.?RN?CM?introduced self and role at [facility].? Pt voices understanding and consents to?assessment?at this time.? Pt sitting up in bed in no distress at this time.? Pt is A/O at this time and answers all questions appropriately.?? Care providers, pharmacy, and demographics verified/updated at this time. Pt states she was living in [place] until she moved to [place], [place], in Apr of this year. ? Strata: 2 PCP: No PCP. Pt has an appt @ [facility] w/Dr Choudhary for a hospital follow-up visit 10/22 @ 11 AM. Pt also has an appt scheduled @ [facility], in Nov to get established as a new pt. Pt made aware, if she wishes for [facility] to be her primary care provider to discuss this with them @ her appt on 10/22. She voices understanding. Specialists: None currently. 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 Pt provided w/local Physicians[facility] Directory. Preferred Pharmacy: [facility] @ discharge. Pt states Rx's were sent by ED to [facility] a couple days ago, but states the pharmacy had closed by the time she left the ED, so she has not picked up the Rx's yet. Call placed to the pharmacy. They currently have the following Rx's ready to be picked up: Bactrim DS 1 tab BID x 28 tabs, Ondansetron 4 mg PO Q 8 hrs prn nausea, Ibuprofen 600 mg Q 6 hrs PRN pain or fever. Unsure at this time if pt will still need these Rx's when discharged. Insurance: [employer] [place] [employer] Prescription Benefit:?yes Living Will/HPOA:?Pt does not currently have LW/HCPOA and declines info at this time. Pt made aware SW can be contacted as an out-pt and make appt in the future if desired. LNOK: No children. Parents (both live in [place]). 2 siblings. Sujey Gruber is listed as pt's [id number]. Pt clarifies, stating she was in a relationship w/her sig other (Sujey's son), but they were not . They were together for about 8 yrs, but he unexpectedly in July of this year. She states he trying to detox himself from ETOH w/out help. Living Arrangements: Pt lives alone in one-story home w/no steps to enter. Independent w/ADL's and IADL's. Transportation:?Pt states she can drive, but she shares a vehicle w/her [id number], Sujey, but states it does not run well. She usually gets her groceries via [employer] or [employer] delivery, but states this is expensive. DME: States has the following DME:?shower chair, nebulizer, pulse ox. O2 through [employer] Pt states she only wears it @ 2 L/M @ home. Per [facility], current O2 orders are 3 L/M continuously. Pt only has a concentrator, no portability. Pt also states she had issues w/roaches in her mobile home in [place] and has concerns there may be issues w/her concentrator. She declines having any issues w/roaches or bugs in [place]. Call placed to Reagan @ [facility]. She states they can deliver a portable O2 tank to [facility] for pt to go home on either today or tomorrow. They can also go to pt's home once she returns home and either provide maintenance on her concentrator or replace it, if needed. Pt to call [facility] to notify them once she returns home. She was made aware & was provided w/[facility]'s phone #. She voices appreciation. Pt states no need for further DME at this time.? HHC/SNF: No hx of either. No needs identified. ? Pt wishes to return home and states has no concerns with going home at time of discharge. CM?to follow for any increase in home oxygen needs and any further discharge planning/needs.? Pt voices no further concerns/needs at this time.? Advised pt to ask for?CM?if any further questions/concerns/needs arise.? Voices understanding. ? PLAN:??Home. Follow for possible [facility] [place] to see pt for resources/transportation. ? Elif BSN?RN?CM ?
[2024-10-16] MEDS: Lactobacillis Acidophilus 1 CAP PO ×3 (13:43→21:29)
--- NOTE | 2024-10-16 15:35 | CON.PCM.SX_ITS ---
Assessment & Plan Assessment/Plan (1) Gallstones: PLAN: Plan The patient is a 39-year-old female admitted with UTI/pyelonephritis. Patient does appear to have gallstones however I do not feel that acute cholecystitis is contributing to her current clinical picture. I suspect her elevated bilirubin and alkaline phosphatase may be inflammatory/reactive to the urinary infection/urosepsis. I would continue to treat with IV antibiotics. I have given her the okay to begin diet. I suspect she may have some degree of biliary colic at times and she can certainly follow-up as an outpatient if she wishes to further evaluate her gallbladder however I do not feel that cholecystectomy is warranted during this hospitalization. All questions and concerns were addressed. Patient was agreeable to this plan HPI Consult Data Date of Consult: 10/16/24 HPI Narrative Reason for Consultation: Gallstones and elevated bilirubin HPI Narrative: JALYN DOZIER, is a 39 F who presented last evening to the emergency department at [facility] with worsening symptoms related to UTI/pyelonephritis. She has a past medical history of morbid obesity, chronic tobacco abuse, asthma/COPD. Her respiratory issues are such that she has chronic hypoxic respiratory failure and is on 2 L of oxygen by nasal cannula daily. She does also have a history of biliary colic and known gallstones for which she states that she has had periodic episodes of right upper quadrant pain over the past several years however denies any current right upper quadrant pain. She was actually seen the day prior in the emergency department and left AMA but returned last evening due to worsening symptoms. Workup in the emergency department revealed an elevated white count/leukocytosis of about 15,000. Her bilirubin was also elevated at 2.8. UA revealed findings consistent with UTI and a CT scan of the abdomen pelvis revealed cystitis and left sided ureteritis with pyelonephritis. Gallstones were noted on CT scan as well as a subsequent ultrasound but no evidence for acute cholecystitis was noted. Patient also underwent a HIDA scan this morning that showed findings concerning for hepatocellular disease but no definitive evidence of acute cholecystitis. She was subsidy admitted overnight and was placed on antibiotics. She does state that she is feeling better today and denies any abdominal pain at the present time. General surgery consult was obtained to further evaluate her elevated bilirubin and alkaline phosphatase [facility] Medical History Anxiety Hypertension COPD (chronic obstructive pulmonary disease) Asthma Home Medications ?Medication ?Instructions ?Recorded ?Last Taken ?Type ibuprofen 600 mg tablet 600 mg PO Q6H PRN PRN fever or 10/14/24 Unknown Rx pain #20 TABLETS ondansetron 4 mg disintegrating 4 mg PO Q8H PRN PRN Na usea #10 tabs 10/14/24 Unknown Rx tablet Allergy/AdvReac Type Severity Reaction Status Date / Time No Known Allergies Allergy Verified 10/15/24 18:55 Social History Smoking Status: Current every day smoker tobacco type: cigarettes ROS Eyes Eyes: Reports systems reviewed and no addt'l complaints, except as documented ENT HEENT: Reports systems reviewed and no addt'l complaints, except as documented Cardiovascular Cardiovascular: Reports systems reviewed and no addt'l complaints, except as documented Respiratory/Chest Respiratory/Chest: Reports systems reviewed and no addt'l complaints, except as documented Gastrointestinal Gastrointestinal: Reports systems reviewed and no addt'l complaints, except as documented Genitourinary Genitourinary: Reports systems reviewed and no addt'l complaints, except as documented Musculoskeletal Musculoskeletal: Reports systems reviewed and no addt'l complaints, except as documented Integumentary Integumentary: Reports systems reviewed and no addt'l complaints, except as documented Neurologic Neurologic: Reports systems reviewed and no addt'l complaints, except as documented Physical Exam Narrative She is alert and oriented x 3. She is in no acute distress. Her head is normocephalic and atraumatic. Pupils are equal round and reactive to light. Abdomen is soft, obese and nondistended. There is no tenderness. Specifically there is no right upper quadrant tenderness to palpation whatsoever Medical Records Data Attestation: I reviewed the patient's medical records Lab / Micro Data Attestation: I reviewed the patient's lab results. 10/16/24 05:59 10/16/24 05:59 Labs: Laboratory Results - last 24 hr 10/15/24 18:35: WBC 13.6 H, RBC 5.78 H, Hgb 15.8 H, Hct 48.3 H, MCV 83.6, MCH 27.3, MCHC 32.7, RDW Std Deviation 46.5 H, RDW Coeff of Dieudonne 15.4 H, Plt Count 154, MPV 12.1 H, Immature Gran % (Auto) 0.400, Neut % (Auto) 79.5 H, Lymph % (Auto) 8.2 L, Walton % (Auto) 11.3 H, Eos % (Auto) 0.1, Baso % (Auto) 0.5, A bsolute Neuts (auto) 10.8 H, Absolute Lymphs (auto) 1.12, Nucleated RBC % 0, Differential Comment SCANNED, PT 15.1 H, INR 1.2, APTT 35.2, Sodium 137, Potassium 4.2, Chloride 95 L, Carbon Dioxide 26.6, Anion Gap 16 H, BUN 10, Creatinine 0.95, Estim Creat Clear Calc 99.05, Est GFR (MDRD) Non-Af 79, BUN/Creatinine Ratio 10.5, Glucose 94, Hemoglobin A1c 5.9 H, Calcium 9.0, Magnesium 1.9, Total Bilirubin 3.14 H, AST 25, ALT 18, Alkaline Phosphatase 140 H, Total Protein 8.1, Albumin 3.3 L, Globulin 4.8 H, Albumin/Globulin Ratio 0.7 L, TSH 0.228 L, Ethyl Alcohol < 10.1 10/15/24 19:22: Urine Color Kay, Urine Clarity Sl. Cloudy, Urine pH 6.0, Ur Specific Lorraine 1.010, Urine Protein 100 H, Urine Glucose (UA) Normal, Urine Ketones 5 H, Urine Occult Blood 250 H, Urine Nitrite Positive H, Urine Bilirubin 3 H, Urine Urobilinogen 12 H, Ur Leukocyte Esterase 100 H, Urine RBC 0-5 SEEN, Urine WBC 5-10 SEEN, Ur Squamous Epith Cells 0-5 SEEN, Urine Bacteria 2+, Urine Mucus 0 SEEN, Urine Opiates Screen NEGATIVE, U Buprenorphine Qual NEGATIVE, Ur Oxycodone Screen NEGATIVE, Urine Methadone Screen NEGATIVE, Urine Fentanyl Screen NEGATIVE, Ur Barbiturates Screen NEGATIVE, Ur Phencyclidine Scrn NEGATIVE, Ur Amphetamines Screen NEGATIVE, U Benzodiazepines Scrn NEGATIVE, Urine Cocaine Screen NEGATIVE, U Cannabinoids Screen PRESUMPTIVE POSITIVE 10/15/24 20:14: Lactic Acid < 1.0 10/16/24 05:59: WBC 11.7 H, RBC 5.26, Hgb 14.5, Hct 44.3, MCV 84.2, MCH 27.6, MCHC 32.7, RDW Std Deviation 47.6 H, RDW Coeff of Dieudonne 15.5 H, Plt Count 155, MPV 10.7, Immature Gran % (Auto) 0.400, Neut % (Auto) 81.0 H, Lymph % (Auto) 7.0 L, Walton % (Auto) 10.6 H, Eos % (Auto) 0.4, Baso % (Auto) 0.6, Absolute Neuts (auto) 9.5 H, Absolute Lymphs (auto) 0.82 L, Nucleated RBC % 0, Sodium 138, Potassium 3.8, Chloride 100, Carbon Dioxide 25.3, Anion Gap 12, BUN 12, Creatinine 0.99, Estim Creat Clear Calc 94.70, Est GFR (MDRD) Non-Af 75, BUN/Creatinine Ratio 12.3, Glucose 97, Calcium 8.4, Phosphorus 3.3, Total Bilirubin 2.33 H, AST 16, ALT 15, Alkaline Phosphatase 109 H, Total Protein 7.1, Albumin 2.8 L, Globulin 4.4 H, Albumin/Globulin Ratio 0.6 L, Triglycerides 111, Cholesterol 113, LDL Cholesterol, Calc 68, VLDL Cholesterol 22, HDL Cholesterol 23 L, Cholesterol/HDL Ratio 4.96, Free T4 0.90, Free T3 pg/dL 1.2 L Micro: Microbiology 10/15/24 20:14 Blood Culture (Wb) - Right Hand Blood Culture - Preliminary 10/15/24 19:22 Urine, Clean Catch Urine Culture - Preliminary Culture exhibits no growth. Imaging Radiology Impression Chest X-Ray 10/15/24 20:30 IMPRESSION: Cardiomegaly. No appreciable focal consolidation or sizable pleural effusion. Reading Location: [facility] Hepatobiliary Scan Nuclear Medicine 10/16/24 10:00 IMPRESSION: 1. Findings concerning for hepatocellular disease, possibly even hepatitis. Recommend clinical and laboratory correlation. 2. No findings of cholecystitis. Reading Location: [place] [address] Charges/Coding Visit Charges Inpatient E&M: 66314 Init Hosp L3
[2024-10-17] VITALS (7 sets, daily range): BP systolic 120–139; BP diastolic 63–110; PULSE 74–103; RESP 14–20; TEMP 36.1–36.8; O2SAT 93–98; BMI 49.0
[2024-10-17 08:09] LABS: Hematocrit 42.5 % (37-47); Hemoglobin 13.7 g/dL (12.0-15.0); Immature Granulocytes Count 0.030 X10^3/uL (0.0-0.0); Mean Corp Hgb Conc 32.2 g/dL (32-36); Mean Corpuscular Volume 84.5 fL (81-99); Mean Platelet Vol. 11.2 fl (6.2-12.0); NRBC Flagged by Analyzer 0 % (0-5); POSITIVE DIFFERENTIAL YES; Platelet Count 163 K/mm3 (150-450); RBC Distribution Width CV 15.7 % (11.6-14.6); RBC Distribution Width SD 48.6 fl (35.1-43.9); Red Blood Count 5.03 M/mm3 (4.2-5.4); White Blood Count 10.3 K/mm3 (4.4-11.0)
[2024-10-17 08:10] LABS: Differential Indicated SCAN CRITERIA MET
[2024-10-17 08:44] LABS: Differential Comment SCANNED
--- NOTE | 2024-10-17 08:45 | CASEMGMT ---
Social Work SW met with pt and completed SDOH assessment. Pt in need of transportation assistance which was provided to pt. (See assessment) Pt's significant other in July. SW provided emotional support. Pt states that the spoke to a counselor earlier this week regarding loss and plans to meet with counselor again. Pt states significant other's mother is a strong support to her. Pt denies further SW needs at this time. QUINTEN Jansen
--- NOTE | 2024-10-17 08:56 | PN_ITS ---
Subjective Subjective Patient seen and examined with her nurse by her bedside. She had no active complaints. Her abdominal pain has resolved. She does have some tachycardia and mild tachypnea this morning. She is on 2L of oxygen. Objective Data Objective Data Vital Signs: Vital Signs Temp Pulse Resp BP Pulse Ox O2 Del Method O2 Flow Rate 97.8 F 103 H 20 H 128/110 H 96 Nasal Cannula 2 10/17/24 04:00 10/17/24 04:00 10/17/24 04:00 10/17/24 04:00 10/17/24 04:00 10/17/24 04:00 10/17/24 04:00 Oxygen Flow Rate (L/min) 2 Oxygen Delivery Method Nasal Cannula Weight: 268 lb 4.841 oz Body Mass Index (BMI) 49.0 Intake & Output: Intake and Output for Last 24 Hours 10/15/24 10/16/24 10/17/24 23:59 23:59 23:59 Intake Total 1150 / 1150 2490 / 2490 Balance 1150 / 1150 2490 / 2490 Lab / Micro Data 10/17/24 05:54 10/17/24 05:54 Labs: Laboratory Results - last 24 hr 10/17/24 05:54: WBC 10.3, RBC 5.03, Hgb 13.7, Hct 42.5, MCV 84.5, MCH 27.2, MCHC 32.2, RDW Std Deviation 48.6 H, RDW Coeff of Dieudonne 15.7 H, Plt Count 163, MPV 11.2, Immature Gran % (Auto) 0.300, Neut % (Auto) 71.8 H, Lymph % (Auto) 8.4 L, [place] % (Auto) 17.9 H, Eos % (Auto) 1.3, Baso % (Auto) 0.3, Absolute Neuts (auto) 7.4, Absolute Lymphs (auto) 0.86, Nucleated RBC % 0, Differential Comment SCANNED, Phosphorus 2.5 L Micro: Microbiology 10/15/24 20:14 Blood Culture (Wb) - Right Hand Blood Culture - Preliminary 10/15/24 19:22 Urine, Clean Catch Urine Culture - Preliminary Culture exhibits no growth. Radiography Diagnostic Testing: Radiology Impression Hepatobiliary Scan Nuclear Medicine 10/16/24 10:00 IMPRESSION: 1. Findings concerning for hepatocellular disease, possibly even hepatitis. Recommend clinical and laboratory correlation. 2. No findings of cholecystitis. Reading Location: [place] [address] Physical Exam Const alert, oriented x3 and no apparent distress Constitutional Narrative: Class III obesity General Appearance: cooperative HEENT normocephalic, head/scalp atraumatic, hearing grossly normal bilaterally, moist oral mucous membranes and oropharynx normal Eyes PERRL, EOMs intact bilaterally and conjunctivae normal Neck no lymphadenopathy, supple and no JVD Lymph Lymphatic: no lymphedema noted Resp normal respiratory effort, normal air movement, no retractions, no use of accessory muscles and clear to auscultation bilaterally Cardio regular rate, regular rhythm, S1 normal heart sound, S2 normal heart sound and no murmurs GI normal to inspection, nondistended, normoactive bowel sounds, soft to palpation, non-tender and non-distended GI Narrative: Morbidly obese. Extremity normal to inspection, full ROM, normal capillary refill, no clubbing, cyanosis or edema and no calf tenderness General Extremity: no tenderness to palpation of joints or extremities Skin General Skin Exam: no breakdown Neuro oriented x3, CN's II-XII intact bilaterally, moves all extremities, no focal motor deficits, no sensory deficits noted and deep tendon reflexes 2+ bilaterally Sensorium / Orientation: awake, alert, oriented to person, oriented to place and oriented to time Speech: speech normal Motor Exam: strength 5/5 throughout and general weakness Psych thought process normal, cooperative and affect normal Appearance: appropriate Assessment & Plan Assessment/Plan (1) Recurrent biliary colic: (2) Hyperbilirubinemia: (3) Pyelonephritis: (4) Ureteritis due to infection: PLAN: Plan #UTI * Patient feeling much better. WBC is down to 10.6. * Urine cultures growing E. coli. Continue IV ceftriaxone. * Blood cultures growing gram variable rods in one sample. #Hyperbilirubinemia in the setting of chronic gallstones with biliary colic * Total bilirubin is trending downwards. Patient is feeling better. HIDA scan showed no evidence of acute cholecystitis but did show hepatitis. * will check hepatitis panel today * liver enzymes pending. * #Class III obesity: BMI is 48.5. Complicates acute care, expected recovery and prognosis. #Abnormal thyroid function: * TSH is low but T4 is normal although T3 is also low. Recommend patient follows up with a PCP to repeat this or outpatient basis and if it still low then will need further workup. #Anxiety: On benzodiazepines as needed #Chronic respiratory failure: On 2 L of oxygen. She still smokes in bed respiratory failure is due to COPD and asthma though class III obesity may also be playing a role. #Nicotine dependence: Counseled to quit. Nicotine patch as needed DVT prophylaxis: Lovenox 40mg twice daily Charges/Coding Visit Charges Inpatient E&M: 61091 Subs Hosp L2
[2024-10-17 09:18] LABS: AST(SGOT) 16 U/L (<=31); Alanine Aminotransfer ALT/SGPT 12 U/L (<=34); Albumin, Serum 2.8 g/dL (3.5-5.0); Alkaline Phosphatase 100 U/L (35-104); Anion Gap 12 (5-15); BUN 10 mg/dL (4-19); BUN/Creat Ratio 12.1 RATIO (10-20); Calcium,Total 8.1 mg/dL (7.6-11.0); Carbon Dioxide 26.4 mmol/L (21.0-32.0); Chloride 100 mmol/L (98-108); Estimated Creatinine Clearance 110.25 ml/min (50-250); Globulin 4.1 g/dL (2.2-4.2); Glucose 101 mg/dL (70-99); Potassium 3.6 mmol/L (3.3-5.1)
[2024-10-17] MEDS: Pantoprazole Sodium 40 MG in 0.9% Normal Saline (100mL MB+) 100 ML 330 MG IV (10:12)
[2024-10-17] MEDS: Lactobacillis Acidophilus 1 CAP PO ×4 (10:15→20:50)
[2024-10-17] MEDS: 0.9% Saline Lock 10 ML Syringe IV (10:15)
--- NOTE | 2024-10-17 16:16 | CASEMGMT ---
PREETHI CM note: Verified that [employer] has delivered portable O2 tank to pt's room for her to discharge home on. Elif THRASHER RN CM
[2024-10-17 16:44] LABS: Hepatitis B Surface Antigen Nonreactive (Nonreactive); Hepatitis C Antibody Nonreactive (Nonreactive)
[2024-10-18] VITALS (9 sets, daily range): BP systolic 118–153; BP diastolic 60–102; PULSE 72–105; RESP 18–20; TEMP 36.9–38.7; O2SAT 93–97; BMI 50.5
[2024-10-18] MEDS: 0.9% Saline Lock 10 ML Syringe IV ×2 (01:15→09:51)
[2024-10-18] MEDS: Albuterol 2.5 MG/3 ML VIAL.NEB. INHALATION (02:00)
[2024-10-18 07:34] LABS: Hematocrit 45.2 % (37-47); Hemoglobin 14.3 g/dL (12.0-15.0); Immature Granulocytes Count 0.040 X10^3/uL (0.0-0.0); Mean Corp Hgb Conc 31.6 g/dL (32-36); Mean Corpuscular Volume 85.8 fL (81-99); Mean Platelet Vol. 10.8 fl (6.2-12.0); NRBC Flagged by Analyzer 0 % (0-5); Platelet Count 177 K/mm3 (150-450); RBC Distribution Width CV 15.7 % (11.6-14.6); RBC Distribution Width SD 49.4 fl (35.1-43.9); Red Blood Count 5.27 M/mm3 (4.2-5.4); White Blood Count 9.4 K/mm3 (4.4-11.0)
[2024-10-18 08:04] LABS: AST(SGOT) 18 U/L (<=31); Alanine Aminotransfer ALT/SGPT 13 U/L (<=34); Albumin, Serum 3.2 g/dL (3.5-5.0); Alkaline Phosphatase 119 U/L (35-104); Anion Gap 11 (5-15); BUN 10 mg/dL (4-19); BUN/Creat Ratio 11.5 RATIO (10-20); Calcium,Total 8.8 mg/dL (7.6-11.0); Carbon Dioxide 31.0 mmol/L (21.0-32.0); Chloride 99 mmol/L (98-108); Estimated Creatinine Clearance 111.03 ml/min (50-250); Globulin 4.7 g/dL (2.2-4.2); Glucose 87 mg/dL (70-99); Potassium 3.4 mmol/L (3.3-5.1)
[2024-10-18] MEDS: Lactobacillis Acidophilus 1 CAP PO ×4 (09:44→21:39)
[2024-10-18] MEDS: Pantoprazole Sodium 40 MG in 0.9% Normal Saline (100mL MB+) 100 ML 330 MG IV (09:59)
--- NOTE | 2024-10-18 11:42 | PN_ITS ---
Subjective Subjective Patient seen and examined. She had no active complaints. She did have a fever today at 100F. She remains on 2L of oxygen. Review of systems is otherwise negative. Objective Data Objective Data Vital Signs: Vital Signs Temp Pulse Resp BP Pulse Ox O2 Del Method O2 Flow Rate 100.0 F H 90 18 129/77 H 95 Nasal Cannula 2 10/18/24 09:42 10/18/24 09:42 10/18/24 09:42 10/18/24 09:42 10/18/24 09:42 10/18/24 09:42 10/18/24 09:42 Oxygen Flow Rate (L/min) 2 Oxygen Delivery Method Nasal Cannula Weight: 276 lb 7.355 oz Body Mass Index (BMI) 50.5 Intake & Output: Intake and Output for Last 24 Hours 10/16/24 10/17/24 10/18/24 23:59 23:59 23:59 Intake Total 2490 / 2490 1130 / 1330 300 / 300 Balance 2490 / 2490 1130 / 1330 300 / 300 Lab / Micro Data 10/18/24 06:54 10/18/24 06:54 Labs: Laboratory Results - last 24 hr 10/17/24 15:05: Hep Bs Antigen Nonreactive, Hep Bs Antibody Nonreactive, Hepatitis C Antibody Nonreactive 10/18/24 06:54: WBC 9.4, RBC 5.27, Hgb 14.3, Hct 45.2, MCV 85.8, MCH 27.1, MCHC 31.6 L, RDW Std Deviation 49.4 H, RDW Coeff of Dieudonne 15.7 H, Plt Count 177, MPV 10.8, Immature Gran % (Auto) 0.400, Neut % (Auto) 66.8, Lymph % (Auto) 17.9 L, M kandice % (Auto) 12.1 H, Eos % (Auto) 2.1, Baso % (Auto) 0.7, Absolute Neuts (auto) 6.3, Absolute Lymphs (auto) 1.68, Nucleated RBC % 0, Sodium 141, Potassium 3.4, Chloride 99, Carbon Dioxide 31.0, Anion Gap 11, BUN 10, Creatinine 0.87, Estim Creat Clear Calc 111.03, Est GFR (MDRD) Non-Af 87, BUN/Creatinine Ratio 11.5, Glucose 87, Calcium 8.8, Total Bilirubin 0.94, AST 18, ALT 13, Alkaline Phosphatase 119 H, Total Protein 7.8, Albumin 3.2 L, Globulin 4.7 H, A lbumin/Globulin Ratio 0.7 L Micro: Microbiology 10/15/24 20:20 Blood Culture (Wb) - Left Hand Blood Culture - Preliminary No growth in 48 hours. 10/15/24 20:14 Blood Culture (Wb) - Right Hand Blood Culture - Preliminary 10/15/24 19:22 Urine, Clean Catch Urine Culture - Preliminary Culture exhibits no growth. Physical Exam Const alert, oriented x3 and no apparent distress Constitutional Narrative: Class III obesity General Appearance: cooperative HEENT normocephalic, head/scalp atraumatic, hearing grossly normal bilaterally, moist oral mucous membranes and oropharynx normal Eyes PERRL, EOMs intact bilaterally and conjunctivae normal Neck no lymphadenopathy, supple and no JVD Lymph Lymphatic: no lymphedema noted Resp normal respiratory effort, normal air movement, no retractions, no use of accessory muscles and clear to auscultation bilaterally Cardio regular rate, regular rhythm, S1 normal heart sound, S2 normal heart sound and no murmurs GI normal to inspection, nondistended, normoactive bowel sounds, soft to palpation, non-tender and non-distended GI Narrative: Morbidly obese. Extremity normal to inspection, full ROM, normal capillary refill, no clubbing, cyanosis or edema and no calf tenderness General Extremity: no tenderness to palpation of joints or extremities Skin General Skin Exam: no breakdown Neuro oriented x3, CN's II-XII intact bilaterally, moves all extremities, no focal motor deficits, no sensory deficits noted and deep tendon reflexes 2+ bilaterally Sensorium / Orientation: awake, alert, oriented to person, oriented to place and oriented to time Speech: speech normal Motor Exam: strength 5/5 throughout and general weakness Psych thought process normal, cooperative and affect normal Appearance: appropriate Assessment & Plan Assessment/Plan (1) Recurrent biliary colic: (2) Hyperbilirubinemia: (3) Pyelonephritis: (4) Ureteritis due to infection: PLAN: Plan #UTI * Patient feeling much better. WBC is down to 10.6. * Urine cultures growing E. coli. Continue IV ceftriaxone. * Blood cultures growing gram variable rods in one sample and the second one is negative. * has a mild fever today. #Hyperbilirubinemia in the setting of chronic gallstones with biliary colic * Total bilirubin is trending downwards. Patient is feeling better. HIDA scan showed no evidence of acute cholecystitis but did show hepatitis. * hepatitis panel negative. * liver enzymes are WNL. * #Class III obesity: BMI is 48.5. Complicates acute care, expected recovery and prognosis. #Abnormal thyroid function: * TSH is low but T4 is normal although T3 is also low. * Recommend patient follows up with a PCP to repeat this or outpatient basis and if it still low then will need further workup. #Anxiety: On benzodiazepines as needed #Chronic respiratory failure: On 2 L of oxygen. She still smokes. Respiratory failure is due to COPD and asthma though class III obesity may also be playing a role. #Nicotine dependence: Counseled to quit. Nicotine patch as needed DVT prophylaxis: Lovenox 40mg twice daily Disposition; anticipate dc by tomorrow. Charges/Coding Visit Charges Inpatient E&M: 86180 Subs Hosp L2
[2024-10-19 03:17] VITALS: BMI 49.4
[2024-10-19 03:30] VITALS: BP 123/73; PULSE 93; RESP 18; TEMP 36.9; O2SAT 92
[2024-10-19 06:37] LABS: Hematocrit 42.8 % (37-47); Hemoglobin 13.9 g/dL (12.0-15.0); Immature Granulocytes Count 0.060 X10^3/uL (0.0-0.0); Mean Corp Hgb Conc 32.5 g/dL (32-36); Mean Corpuscular Volume 85.1 fL (81-99); Mean Platelet Vol. 11.6 fl (6.2-12.0); NRBC Flagged by Analyzer 0 % (0-5); Platelet Count 184 K/mm3 (150-450); RBC Distribution Width CV 15.8 % (11.6-14.6); RBC Distribution Width SD 49.0 fl (35.1-43.9); Red Blood Count 5.03 M/mm3 (4.2-5.4); White Blood Count 6.1 K/mm3 (4.4-11.0)
[2024-10-19 07:04] LABS: AST(SGOT) 18 U/L (<=31); Alanine Aminotransfer ALT/SGPT 13 U/L (<=34); Albumin, Serum 2.7 g/dL (3.5-5.0); Alkaline Phosphatase 105 U/L (35-104); Anion Gap 10 (5-15); BUN 7 mg/dL (4-19); BUN/Creat Ratio 13.0 RATIO (10-20); Calcium,Total 8.7 mg/dL (7.6-11.0); Carbon Dioxide 27.7 mmol/L (21.0-32.0); Chloride 102 mmol/L (98-108); Estimated Creatinine Clearance 167.02 ml/min (50-250); Globulin 4.4 g/dL (2.2-4.2); Glucose 97 mg/dL (70-99); Potassium 3.6 mmol/L (3.3-5.1)
[2024-10-19 08:17] VITALS: BP 131/91; PULSE 82; RESP 16; TEMP 36.2; O2SAT 94
[2024-10-19] MEDS: Lactobacillis Acidophilus 1 CAP PO (08:21)
--- NOTE | 2024-10-19 11:16 | DCINST_ITS ---
Discharge Instructions DC O2, CPAP, BIPAP needs Home O2 Discharge instructions: Yes Type of respiratory needs?: Oxygen Oxygen frequency: Continuous Continuous oxygen liters per minute: 2 Dressing / Incision Call your doctor if you observe: Fever of 101 or Higher, Shortness of breath, Dizziness, Swelling in the ankles and Chest pain Follow Up Care Test Results: Test results from this visit will be discussed in further detail at your follow- up appointment, if applicable. 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 This is at the [facility]. ) Disposition Disposition (needs filled in before D/C Order can be placed): Home, Self Care
--- NOTE | 2024-10-19 11:17 | DS.PCM_ITS ---
Providers Date of Admission: 10/15/24 Date of Discharge: 10/19/24 Primary Care Physician: Ann Primary Care Phys Consultations 10/16/24 00:02 Consult: General Surgery Routine Consulting Provider: Nilay Parsons Reason for Consult: Biliary colic with hyperbilirubinemia. EMERGENT Consult: No MD Notified: Yes Date Notified: 10/16/24 Time Notified: 07:11 Method of Notification: Text Reason For Visit: UTI, LEFT URETERITIS AND LEFT Diagnosis Discharge Diagnosis (1) Recurrent biliary colic: Status: Acute Code(s): K80.50 - Calculus of bile duct without cholangitis or cholecystitis without obstruction (2) Hyperbilirubinemia: Status: Acute Code(s): E80.6 - Other disorders of bilirubin metabolism (3) Pyelonephritis: Status: Acute Code(s): N12 - Tubulo-interstitial nephritis, not specified as acute or chronic (4) Ureteritis due to infection: Status: Acute Code(s): N28.89 - Other specified disorders of kidney and ureter Plan #UTI * Patient feeling much better. WBC is down to 10.6. * Urine cultures growing E. coli. Continue IV ceftriaxone. * Blood cultures growing gram variable rods in one sample and the second one is negative. * has a mild fever today. #Hyperbilirubinemia in the setting of chronic gallstones with biliary colic * Total bilirubin is trending downwards. Patient is feeling better. HIDA scan showed no evidence of acute cholecystitis but did show hepatitis. * hepatitis panel negative. * liver enzymes are WNL. * #Class III obesity: BMI is 48.5. Complicates acute care, expected recovery and prognosis. #Abnormal thyroid function: * TSH is low but T4 is normal although T3 is also low. * Recommend patient follows up with a PCP to repeat this or outpatient basis and if it still low then will need further workup. #Anxiety: On benzodiazepines as needed #Chronic respiratory failure: On 2 L of oxygen. She still smokes. Respiratory failure is due to COPD and asthma though class III obesity may also be playing a role. #Nicotine dependence: Counseled to quit. Nicotine patch as needed DVT prophylaxis: Lovenox 40mg twice daily Disposition; anticipate dc by tomorrow. Medications at Discharge Home Medications ibuprofen 600 mg tablet 600 mg PO Q6H PRN PRN fever or pain #20 TABLETS 10/14/24 ondansetron 4 mg disintegrating tablet 4 mg PO Q8H PRN PRN Nausea #10 tabs 10/14/24 cefdinir 300 mg capsule 300 mg PO BID #10 caps 10/19/24 Hospital Course Operations None Procedures None Summary of Care Provided Minutes Spent on Discharge: 45 Hospital Course: Patient is a 39-year-old female with past medical history as outlined including chronic respiratory failure due to COPD and asthma and class II obesity with BMI of 48.5 who was admitted through the ED on 10/15/2024 with a complaint of abdominal pain that had been going on for about 2 days prior to admission. He had associated nausea and fever and chills. On admission she had leukocytosis of 15 and urinalysis showed evidence of UTI. Total bilirubin was also elevated at 2.8. CT of the abdomen and pelvis showed cystitis with left ureteritis and pyelonephritis in addition to cholelithiasis with no evidence of acute cholecystitis. Gallbladder ultrasound revealed cholelithiasis with contracted gallbladder and numerous small stones and sludge with no definite evidence of acute cholecystitis. She was admitted to be managed for UTI and hyperbilirubinemia in the setting of gallstones. Urine cultures grew E. coli which was pansensitive. She did have a HIDA scan which did not show any evidence of acute cholecystitis but did show hepatitis. General surgery was consulted and recommended conservative management and no need for cholecystectomy during this admission. She did have hepatitis panel which was negative. Her liver enzymes actually trended down during admission. She remained stable and her symptoms resolved. She was discharged home on 10/19/2024 on a 5-day course of oral cefdinir. She is follow-up with her primary care doctor within 1 to 2 weeks. Patient seen and examined prior to discharge. She felt well and had no complaints. She had an uneventful night. Review of systems otherwise negative. Labs and vitals reviewed. Home medication reviewed and reconciled. Physical Exam Const alert, oriented x3 and no apparent distress Constitutional Narrative: Class III obesity General Appearance: cooperative HEENT normocephalic, head/scalp atraumatic, hearing grossly normal bilaterally, moist oral mucous membranes and oropharynx normal Mouth: oral and palatal mucosa normal Eyes PERRL, EOMs intact bilaterally and conjunctivae normal Neck no lymphadenopathy, supple and no JVD Lymph Lymphatic: no lymphedema noted Resp normal respiratory effort, normal air movement, no retractions, no use of accessory muscles and clear to auscultation bilaterally Cardio regular rate, regular rhythm, S1 normal heart sound, S2 normal heart sound and no murmurs GI normal to inspection, nondistended, normoactive bowel sounds, soft to palpation, non-tender and non-distended GI Narrative: Morbidly obese. Extremity normal to inspection, full ROM, normal capillary refill, no clubbing, cyanosis or edema and no calf tenderness General Extremity: no tenderness to palpation of joints or extremities Skin General Skin Exam: no breakdown Neuro oriented x3, CN's II-XII intact bilaterally, moves all extremities, no focal motor deficits, no sensory deficits noted and deep tendon reflexes 2+ bilaterally Sensorium / Orientation: awake, alert, oriented to person, oriented to place and oriented to time Speech: speech normal Motor Exam: strength 5/5 throughout and general weakness Psych thought process normal, cooperative and affect normal Appearance: appropriate Weight / BMI Weight Weight: 270 lb 1.06 oz Body Mass Index (BMI) 49.4 ABG / Lab / Microbiology Data 10/19/24 05:56 10/19/24 05:56 Laboratory: Laboratory Results - last 24 hr 10/15/24 19:22: Urine Color Kay, Urine Clarity Sl. Cloudy, Urine pH 6.0, Ur Specific [place] 1.010, Urine Protein 100 H, Urine Glucose (UA) Normal, Urine Ketones 5 H, Urine Occult Blood 250 H, Urine Nitrite Positive H, Urine Bilirubin 3 H, Urine Urobilinogen 12 H, Ur Leukocyte Esterase 100 H, Urine RBC 0-5 SEEN, Urine WBC 5-10 SEEN, Ur Squamous Epith Cells 0-5 SEEN, Urine Bacteria 2+, Urine Mucus 0 SEEN 10/19/24 05:56: WBC 6.1, RBC 5.03, Hgb 13.9, Hct 42.8, MCV 85.1, MCH 27.6, MCHC 32.5, RDW Std Deviation 49.0 H, RDW Coeff of Dieudonne 15.8 H, Plt Count 184, MPV 11.6, Immature Gran % (Auto) 1.000 H, Neut % (Auto) 56.6, Lymph % (Auto) 25.2, M kandice % (Auto) 11.7 H, Eos % (Auto) 4.3, Baso % (Auto) 1.2 H, Absolute Neuts (auto) 3.4, Absolute Lymphs (auto) 1.53, Nucleated RBC % 0, Sodium 140, Potassium 3.6, Chloride 102, Carbon Dioxide 27.7, Anion Gap 10, BUN 7, C reatinine 0.57 L, Estim Creat Clear Calc 167.02, Est GFR (MDRD) Non-Af 119, BUN/Creatinine Ratio 13.0, Glucose 97, Calcium 8.7, Total Bilirubin 0.78, AST 18, ALT 13, Alkaline Phosphatase 105 H, Total Protein 7.1, Albumin 2.7 L, G lobulin 4.4 H, Albumin/Globulin Ratio 0.6 L Microbiology: Microbiology 10/15/24 19:22 Urine, Clean Catch Urine Culture - Final Mixed Gram Positive Organisms 10/15/24 20:14 Blood Culture (Wb) - Right Hand Blood Culture - Preliminary 10/15/24 20:20 Blood Culture (Wb) - Left Hand Blood Culture - Preliminary No growth in 48 hours. D/C Instructions Discharge Activity: Return to Normal Activity Weight Bearing Status: Weight bearing as tolerated Call your doctor if you observe: Fever of 101 or Higher, Shortness of breath, Dizziness, Swelling in the ankles and Chest pain DC O2, CPAP, BIPAP Needs Home O2 Discharge instructions: Yes Type of respiratory needs?: Oxygen Oxygen frequency: Continuous Continuous oxygen liters per minute: 2 DC home with Oxygen: Yes Home O2 MD Review: I have reviewed the oxygen testing, and the patient qualifies for home oxygen equipment and portability. The patient is mobile in the home and the community. Meaningful Use Info Meaningful Use Meaningful Use Diagnoses (Choose all that apply): None applicable Discharge Plan Admission Admit Date/Time: 10/15/24 23:10 Primary Reason for Your Visit: UTI Attending Provider: Janel Fox Primary Care Provider: Care Physician,No Primary Consulting Providers: Kulwinder Cruz; Nilay Parsons Instructions Patient Instructions: ED Cystitis Female Adult Discharge Orders/Prescriptions Prescriptions: New cefdinir 300 mg capsule 300 mg PO BID Qty: 10 0RF Continued ibuprofen 600 mg tablet 600 mg PO Q6H PRN PRN (Reason: fever or pain) Qty: 20 0RF ondansetron 4 mg tablet,disintegrating 4 mg PO Q8H PRN PRN (Reason: Nausea) Qty: 10 0RF 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 This is at the [facility]. ) Disposition Disposition (needs filled in before D/C Order can be placed): Home, Self Care Charges/Coding Visit Charges Inpatient E&M: 64517 Disch Hosp >30min
[2024-10-19 11:21] VITALS: O2SAT 93; O2SAT 96
== END 2024-10-19 12:26 | disposition home or self-care (01) | DRG 690 ==
LOC: ED 20:34 → PCU 23:30
PROVIDERS: Admitting Provider Internal Medicine; Emergency Provider Emergency Medicine; Visit Provider Student in an Organized Health Care Education/Training Program
DX: N30.00 Acute cystitis without hematuria (principal); Z68.42 Body mass index [BMI] 45.0-49.9, adult; J96.11 Chronic respiratory failure with hypoxia; N12 Tubulo-interstitial nephritis, not specified as acute or chronic; K80.50 Calculus of bile duct without cholangitis or cholecystitis without obstruction; K75.9 Inflammatory liver disease, unspecified; J44.9 Chronic obstructive pulmonary disease, unspecified; I10 Essential (primary) hypertension; E66.01 Morbid (severe) obesity due to excess calories; E80.6 Other disorders of bilirubin metabolism; M19.90 Unspecified osteoarthritis, unspecified site; F17.210 Nicotine dependence, cigarettes, uncomplicated; F41.1 Generalized anxiety disorder; N91.2 Amenorrhea, unspecified; E66.813 Obesity, class 3; B96.20 Unspecified Escherichia coli [E. coli] as the cause of diseases classified elsewhere; N28.89 Other specified disorders of kidney and ureter
CPT/HCPCS: 36415; 71045; 78226; 80053; 80061; 80307; 81001; 82077; 83036; 83605; 83735; 84100; 84439; 84443; 84481; 85025; 85610; 85730; 86706; 86803; 87040; 87086; 87088; 87340; 93005; 94640; 94668; 99252; 99285; 99406; A9537; A4216; G0463

== ENCOUNTER → 2024-10-28 | Outpatient (CLI) | payer BC, MEDICAID, SELFPAY ==
[2024-10-28 13:13] LABS: Hematocrit 43.9 % (37-47); Hemoglobin 13.8 g/dL (12.0-15.0); Immature Granulocytes Count 0.030 X10^3/uL (0.0-0.0); Mean Corp Hgb Conc 31.4 g/dL (32-36); Mean Corpuscular Volume 86.2 fL (81-99); Mean Platelet Vol. 9.9 fl (6.2-12.0); NRBC Flagged by Analyzer 0.4 % (0-5); Platelet Count 385 K/mm3 (150-450); RBC Distribution Width CV 17.1 % (11.6-14.6); RBC Distribution Width SD 51.0 fl (35.1-43.9); Red Blood Count 5.09 M/mm3 (4.2-5.4); White Blood Count 8.2 K/mm3 (4.4-11.0)
[2024-10-28 13:55] LABS: AST(SGOT) 17 U/L (<=31); Alanine Aminotransfer ALT/SGPT 8 U/L (<=34); Albumin, Serum 3.3 g/dL (3.5-5.0); Alkaline Phosphatase 100 U/L (35-104); Bilirubin, Direct 0.41 mg/dL (0.00-0.30); Free T3 3.0 pg/mL (2.18-3.98); Globulin 4.5 g/dL (2.2-4.2)
[2024-10-31 16:09] LABS: HEPATITIS B SURFACE AG Negative (Negative); Hep C Antibodies Non Reactive (Non Reactive); Thyroid Stim Immunoglob <0.10 IU/L (0.00-0.55)
== END | disposition home or self-care (01) ==
LOC: LAB 12:48
PROVIDERS: PCP Family Medicine; Referring Provider Family Medicine; Visit Provider Family Medicine
DX: R94.6 Abnormal results of thyroid function studies (principal); E80.6 Other disorders of bilirubin metabolism
CPT/HCPCS: 36415; 80074; 80076; 84439; 84443; 84445; 84481; 85025; 86376; 86800